=== PATIENT | male | born 1955 | race Caucasian/White ===

== ENCOUNTER → 2021-02-28 09:28 | Outpatient (BNVA) | payer MEDICARE, SELFPAY | PROVIDERS: PCP Family Medicine; Referring Provider Family Medicine; Visit Provider Nurse Practitioner Family | DX: I25.10 Atherosclerotic heart disease of native coronary artery without angina pectoris (principal); I25.2 Old myocardial infarction; I10 Essential (primary) hypertension; E78.5 Hyperlipidemia, unspecified; I45.10 Unspecified right bundle-branch block; Z95.5 Presence of coronary angioplasty implant and graft | CPT/HCPCS: 93005; 99212 ==

== ENCOUNTER 2021-03-11 09:11 | Outpatient (REF) | payer MEDICARE, OTHER, SELFPAY ==
[2021-03-11 10:27] LABS: Alanine Aminotransferase 27 U/L (0-40); Albumin Level 4.1 g/dL (3.5-5.0); Alkaline Phosphatase 115 U/L (39-117); Anion Gap 11 (12-20); Aspartate Amino Transferase 23 U/L (5-37); Bilirubin Total 0.8 mg/dL (0.0-1.0); Blood Urea Nitrogen 17 mg/dL (9-16); Calcium 9.6 mg/dL (8.4-10.2); Carbon Dioxide 29 mmol/L (22-29); Chloride 102 mmol/L (96-108); Cholesterol 147 mg/dL; Estimated Glomerular Filt Rate 43; Glucose Fasting 237 mg/dL (60-99); HDL Cholesterol 59 mg/dL; LDL Cholesterol Calculated 66 mg/dl; Potassium 4.5 mmol/L (3.3-5.1); Sodium 137 mmol/L (135-145); Total Protein 7.5 g/dL (6.5-8.0); Triglycerides 111 mg/dL
== END 2021-03-11 09:12 | disposition home or self-care (01) ==
LOC: HO.LAB 09:11
PROVIDERS: PCP Family Medicine; Visit Provider Nurse Practitioner Family
DX: E78.5 Hyperlipidemia, unspecified (principal)
CPT/HCPCS: 36415; 80053; 80061

== ENCOUNTER → 2021-05-02 08:59 | Outpatient (REF) | payer MEDICARE, OTHER, SELFPAY ==
--- NOTE | 2021-05-02 09:03 | CA_ITS ---
Transthoracic Echocardiogram Patient (Last, First, Middle): Ventura Epstein, Gender: Male Date of : 1955 Age: 65 Procedure Date: 05/02/2021 Procedure Type: Transthoracic Echocardiogram Location: OP Height: 162.56 cm Weight: 68.04 kg BSA: 1.73 m2 Heart Rate: bpm BP: 120 / 63 mmHg Tool Builder: ASHLEY Holland MD: Viviana Gurrola SUPERVISOR [employer] Symptoms: I45.10 - Unspecified right bundle-branch block Study Quality: Fair Conclusions: - Normal left ventricular size, thickness, systolic function, and wall motion. The visually estimated ejection fraction is between 55-60%. - Normal right ventricular cavity size and systolic function. Findings Left Ventricle Normal left ventricular size, thickness, systolic function, and wall motion. The visually estimated ejection fraction is between 55-60%. Diastolic function is indeterminate on the basis of available data. Right Ventricle Normal right ventricular cavity size and systolic function. Atria The left atrium is normal in size. Aortic Valve Normal aortic valve structure and function. There is no aortic valve stenosis. There is no aortic valve regurgitation. Mitral Valve The mitral valve appears normal. There is no mitral valve regurgitation. There is no mitral valve stenosis. Pulmonic Valve Normal pulmonic valve structure and function. There is trace pulmonic valve regurgitation. Tricuspid Valve Normal tricuspid valve structure. There is trace tricuspid valve regurgitation. Normal right atrial pressure. There is no evidence of pulmonary hypertension. Great Vessels All visible segments of the aorta are normal in size. The pulmonary artery was not well visualized. Venous The inferior vena cava is normal in size and collapses greater than 50% with inspiration. Pericardium/Pleural There is no evidence of pericardial effusion. Prior Study Comparison No significant change compared to prior study dated: 11/11/2017. Measurements 2D Linear Measurements IVSd: 0.98 0.6-0.9/0.6-1.0 cm LVIDd: 4.63 3.9-5.3/4.2-5.9 cm LVIDd Index: 2.68 2.4-3.2/2.2-3.1 cm/m2 LVIDs: 2.95 2.0-3.6 cm LVPWd: 0.93 0.7-1.1 cm Ao Root: 2.90 2.1-3.5 cm LA Diam: 3.50 2.7-3.8/3.0-4.0 cm LAIDs Index: 2.02 1.5-2.3 cm/m2 LV Mass: 187.29 67-162/88-224 g LV Mass Index: 108.26 43-95/49-115 g/m2 LVOT Diam: 2.10 3.0+(-)1.3 cm 2D Systolic Function EF 4C: 61.70 >55% EF 2C: 60.20 >55% Mitral Valve MV Pk E: 0.89 MV PK A: 0.91 MV Decel Time: 337.00 E/A: 1.00 E'Lateral: 9.79 E'Medial: 7.18 E/E' Med: 12.40 E/E' Lat: 9.10 PHT: 99.00 MVA PHT: 2.22 Decel [place]: 2.63 Aortic Valve AoV Pk Rigoberto: 1.48 AoV Mn Rigoberto: 0.98 AoV VTI: 0.33 AoV Pk Grad: 9.00 Aov Mn Grad: 4.00 ABHAY Cont.VTI: 2.47 LVOT LVOT Pk Rigoberto: 1.03 LVOT Mn Rigoberto: 0.67 LVOT VTI: 0.24 LVOT Pk Grad: 4.00 LVOT Mn Grad: 2.00 LVOT Diam: 2.10 LVOT Area: 3.46 Diastolic Function MV Pk E: 0.89 MV Pk A: 0.91 E/A: 1.00 E'Medial: 7.18 E/E' Med: 12.40 E' Laterial: 9.79 E/E' Lat: 9.10 Tricuspid Valve TR Pk Rigoberto: 1.37 TR Pk Grad: 8.00 RA Press: 3.00 RVSP: 11.00 Great Vessels Aorta Ao Root-2D: 2.90 2.0-3.7 cm Ao Asc: 2.90 2.1-3.4 cm Ao Arch: 2.90 Updated in Other Vendor System with Status of Final Yaron Sullivan MD electronically signed on 05/05/2021 9:36:27 AM with status of Final
== END ==
LOC: HO.CARD 08:59
PROVIDERS: Visit Provider Nurse Practitioner Family
DX: I25.2 Old myocardial infarction (principal); I45.10 Unspecified right bundle-branch block; I25.10 Atherosclerotic heart disease of native coronary artery without angina pectoris; I10 Essential (primary) hypertension; E78.5 Hyperlipidemia, unspecified; Z95.5 Presence of coronary angioplasty implant and graft
CPT/HCPCS: 93306

== ENCOUNTER → 2021-05-21 08:47 | Outpatient (BNVA) | payer MEDICARE, OTHER, SELFPAY | PROVIDERS: PCP Family Medicine; Referring Provider Family Medicine; Visit Provider Surgery | DX: Z01.818 Encounter for other preprocedural examination (principal); Z12.11 Encounter for screening for malignant neoplasm of colon | CPT/HCPCS: 99202; 99212 ==

== ENCOUNTER 2021-06-20 06:12 | Day surgery (SDC) | payer MEDICARE, OTHER, SELFPAY ==
[2021-06-16 11:18] VITALS: BMI 26.7
[2021-06-20 06:31] VITALS: BP 125/75; PULSE 80; RESP 15; TEMP 36.7; O2SAT 97
[2021-06-20 06:51] LABS: Glucose, Whole Blood 178 mg/dL (60-115)
--- NOTE | 2021-06-20 07:05 | HO.ANESPROP2 ---
[facility] Active Problems Active Problems: All Active Problems (Updated 06/20/21 @ 06:22 by Linda Nash, PIERRE) RBBB (Acute) Colon cancer screening (Acute) HLD (hyperlipidemia) (Acute) HTN (hypertension) (Acute) Old anterior myocardial infarction (Acute) Stented coronary artery (Acute) CAD (coronary artery disease) (Acute) Past Medical History Medical History (Updated 06/20/21 @ 06:22 by Linda Nash, RN) Arthritis CAD (coronary artery disease) Chronic back pain Colon cancer screening COVID-19 vaccine series completed GERD (gastroesophageal reflux disease) History of anemia HIV (human immunodeficiency virus infection) HLD (hyperlipidemia) HTN (hypertension) Hx of major depression Old anterior myocardial infarction Functional capacity: independent ambulation Family History Family History Father No problems noted. Mother No problems noted. Family history of problems with anesthesia: No Surgical History Surgical History History of bilateral cataract extraction History of esophagogastroduodenoscopy (EGD) History of neck surgery History of right knee surgery Hx of colonoscopy Stented coronary artery History of Problems with Anesthesia: No Social History Social History Are you a primary transitional care nurse to a significant other at home: No Do you presently have visiting nurse or other home services: No Have you been hit, kicked, punched, or otherwise hurt by someone within the past year? If so, by whom?: No Are you DNR?: No Advance Directives: No Advance Directives Information Provided: No Advance Directives on File: No Recently lost weight without trying: No Eating poorly because of decreased appetite: No Nutrition Risks: No Nutritional Risk Meds Allergies Allergy/AdvReac Type Severity Reaction Status Date / Time amoxicillin [Amoxicillin] Allergy Mild RASH Verified 06/20/21 06:22 Penicillins Allergy Mild RASH Verified 06/20/21 06:22 sulfamethoxazole Allergy Unknown UNKNOWN Verified 06/20/21 06:22 [From BACTRIM] trimethoprim [From BACTRIM] Allergy Unknown UNKNOWN Verified 06/20/21 06:22 atorvastatin [Lipitor] AdvReac Unknown unk Verified 06/20/21 06:22 Home Medications Medication Instructions Recorded Confirmed Last Taken Type aspirin 81 mg tablet,delayed 81 mg PO DAILY 02/28/21 06/16/21 Unknown History release (Adult Aspirin Regimen) baclofen 20 mg tablet 1 tab PO TID PRN 06/20/21 06/20/21 06/20/21 05:30 History bictegravir 50 mg-emtricitabine 1 tab PO BEDTIME 06/20/21 06/20/21 Unknown History 200 mg-tenofovir alafenam 25 mg tablet (Biktarvy) diazepam 5 mg tablet 1 tab PO BEDTIME PRN 06/20/21 06/20/21 Unknown History glipizide 10 mg tablet 2 tab PO BID 06/20/21 06/20/21 06/20/21 05:30 History insulin glargine 100 unit/mL (3 24 unit SUBCUT DAILY 06/20/21 06/20/21 Unknown History mL) subcutaneous pen (Lantus Solostar U-100 Insulin) metoprolol succinate 25 mg 1 tab PO QAM 06/20/21 06/20/21 06/20/21 05:30 History tablet,extended release 24 hr morphine 30 mg tablet,extended 1 tab PO TID 06/20/21 06/20/21 Unknown History release omega-3 fatty acids-fish oil 340 2 cap PO QAM 06/20/21 06/20/21 06/20/21 05:30 History mg-1,000 mg capsule (Fish Oil) omeprazole 40 mg capsule,delayed 1 cap PO QAM 06/20/21 06/20/21 06/20/21 05:30 History release oxycodone-acetaminophen 5 mg-325 1 tab PO BID PRN 06/20/21 06/20/21 Unknown History mg tablet pioglitazone 45 mg tablet 1 tab PO QAM 06/20/21 06/20/21 06/20/21 05:30 History Exam Exam Date and Time: June 20, 2021 0705 Height,Weight and Vital Signs: Height 5 ft 4 in Weight 70.76 kg Last Vital Signs Temp 98.0 F 06/20/21 06:31 Pulse 80 06/20/21 06:31 Resp 15 06/20/21 06:31 BP 125/75 06/20/21 06:31 Pulse Ox 97 06/20/21 06:31 Pertinent Lab Results Pertinent Lab Results: Laboratory Tests 06/20/21 06:34 POC Glucose 178 H Airway Mallampati Class: II TM Dist: >3cm Neck ROM: Full Heart: RRR Lungs: CTA Assessment and Plan Final Anesthetic Review Family History of Problems with Anesthesia: No History of Problems with Anesthesia: No
[2021-06-20] MEDS: Lactated Ringers 1,000 ML 50 ML IVCONT (07:10)
--- NOTE | 2021-06-20 07:29 | MHC.SHP ---
Pre-Procedural Eval Section A Date of Service: 06/20/21 Section B Chief Complaint: Screening Allergies: Allergies Allergy/AdvReac Type Severity Reaction Status Date / Time amoxicillin [Amoxicillin] Allergy Mild RASH Verified 06/20/21 06:22 Penicillins Allergy Mild RASH Verified 06/20/21 06:22 sulfamethoxazole Allergy Unknown UNKNOWN Verified 06/20/21 06:22 [From BACTRIM] trimethoprim [From BACTRIM] Allergy Unknown UNKNOWN Verified 06/20/21 06:22 atorvastatin [Lipitor] AdvReac Unknown unk Verified 06/20/21 06:22 Plan I have reviewed the history and physical and performed a pertinent physical examination on my patient. No changes have occurred unless specified.
--- NOTE | 2021-06-20 08:04 | W.PM.OPN ---
Operative Note Operative Note Date of Service: 06/20/21 Narrative: Preop diagnosis: colon cancer screening Postop diagnosis: Normal colonoscopy findings Procedure: Colonoscopy for screening Surgeon: Ja Rios MD The patient is a 65-year-old male referred to me for screening colonoscopy. He understood the technique of the procedure. He was aware of the risks, benefits, and alternatives. He was brought to the operating room and placed in left lateral decubitus position under monitored anesthesia care. A full digital rectal exam was done and there were no palpable anal lesions. The tip of the Olympus colonoscope was gently introduced through the anal orifice and advanced with insufflation all the cecum. The cecum was intubated. The cecum was identified by visualization of the ileocecal valve as well as the appendiceal orifice. Photographic documentation of this was done. cecal mucosa was unremarkable. The scope was gradually withdrawn with careful examination of the entire colonic mucosa being done with scope withdrawal. The patient had adequate bowel prep and it was unlikely that any lesion may have been missed. He did have some small pools of thin watery stools which we had to irrigate and suction out during the procedure. The rectum was reached and there were no lesions seen. The anal canal was unremarkable the scope was then withdrawn completely with desufflation. The patient tolerated procedure well. There were no complications noted. He falls at average risk for colon cancer so his next colonoscopy may be in the next 10 years or when he turns 73.
[2021-06-20 08:06] VITALS: BP 76/47; PULSE 68; RESP 16; TEMP 36.4; O2SAT 96
--- NOTE | 2021-06-20 08:08 | P.BOP_ITS ---
Brief Operative Note Date of Service: 06/20/21 Pre-op diagnosis: Colon cancer screen Post-op diagnosis: same (Normal colonoscopy findings) Procedure: Colonoscopy Surgeon: Ja Rios MD Anesthesia: MAC Was an Tubular Stock Glass Bulb Machine Former used for this Procedure?: No Estimated blood loss (mL): 0 Pathology: none sent Condition: stable Disposition: PACU
[2021-06-20 08:21] VITALS: BP 97/58; PULSE 68; RESP 16; O2SAT 95
[2021-06-20 08:35] VITALS: BP 127/76; PULSE 60; RESP 18; O2SAT 98
[2021-06-20 08:50] VITALS: BP 138/72; PULSE 55; RESP 18; O2SAT 98
[2021-06-20 09:14] VITALS: BP 132/77; PULSE 57; RESP 18; TEMP 36.4; O2SAT 99
== END 2021-06-20 10:00 | disposition home or self-care (01) ==
PROVIDERS: PCP Family Medicine; Visit Provider Surgery
PROC: 0DJD8ZZ Inspection of Lower Intestinal Tract, Via Natural or Artificial Opening Endoscopic (ICD-10-PCS; CPT 45378; principal; 2021-06-20 07:30)
DX: Z12.11 Encounter for screening for malignant neoplasm of colon (principal); E78.5 Hyperlipidemia, unspecified; I25.10 Atherosclerotic heart disease of native coronary artery without angina pectoris; Z98.61 Coronary angioplasty status; I10 Essential (primary) hypertension; I25.2 Old myocardial infarction; Z79.82 Long term (current) use of aspirin; Z79.899 Other long term (current) drug therapy; Z88.0 Allergy status to penicillin; Z88.2 Allergy status to sulfonamides; Z88.8 Allergy status to other drugs, medicaments and biological substances
CPT/HCPCS: G0121; 82947

== ENCOUNTER → 2021-07-02 10:59 | Outpatient (BNVA) | payer MEDICARE, OTHER, SELFPAY | PROVIDERS: PCP Family Medicine; Visit Provider Surgery | CPT/HCPCS: Q3014 ==

== ENCOUNTER 2021-10-02 17:07 | Emergency (ER) | payer MEDICARE, OTHER, SELFPAY ==
--- NOTE | ~2021-10-02 | CT_ITS ---
EXAMINATION: CT HEAD WITHOUT CONTRAST CLINICAL INFORMATION: Altered mental status COMPARISON: 12.04.2019 TECHNIQUE: Contiguous axial imaging was performed from the skull base to vertex without intravenous administration of contrast. This CT examination was performed using dose optimization techniques as appropriate, variously including the following: *Automated exposure control *Adjustment of mA and/or kV according to patient size (this includes techniques or standardized protocols for targeted exams where dose is matched to indication/reason for exam; i.e. extremities or head) *Use of iterative reconstruction technique DLP: 774 mGy-cm FINDINGS: There is no evidence of acute intracranial hemorrhage or territorial infarction. No abnormal mass effect or midline shift is seen. Sigala to white matter differentiation is well preserved. No extra-axial fluid collections are identified. The ventricles are normal in size. There is no abnormal attenuation within the brain parenchyma. The osseous structures and soft tissues are normal. The mastoid air cells and visualized portions of the paranasal sinuses are well aerated. CT/CT head/brain wo con IMPRESSION: No acute intracranial pathology.
[2021-10-02 17:19] VITALS: BP 160/80; PULSE 80; O2SAT 98
[2021-10-02 17:37] VITALS: BP 137/81; PULSE 66; RESP 14; TEMP 36.6; O2SAT 97
[2021-10-02 17:42] LABS: Glucose, Whole Blood 213 mg/dL (60-115)
--- NOTE | 2021-10-02 17:49 | ECG_ITS ---
Test Reason : WEAKNESS Blood Pressure : / mmHG Vent. Rate : 059 BPM Atrial Rate : 059 BPM P-R Int : 156 ms QRS Dur : 146 ms QT Int : 452 ms P-R-T Axes : 047 -45 -01 degrees QTc Int : 447 ms Sinus bradycardia Right bundle branch block Left anterior fascicular block Bifascicular block Minimal voltage criteria for LVH, may be normal variant ( R in aVL ) Abnormal ECG When compared with ECG of 04-DEC-2019 08:32, Vent. rate has decreased BY 33 BPM (RBBB and left anterior fascicular block) is now Present Referred By: Generic ED Physician Electronically Signed By:NEAL MARCUM MD
[2021-10-02 18:44] VITALS: BP 132/67; PULSE 63; RESP 18; TEMP 36.6; O2SAT 95; BMI 25.7
[2021-10-02 19:20] VITALS: BP 160/85; PULSE 71; RESP 14; TEMP 36.5; O2SAT 97
[2021-10-02 19:27] LABS: Hemoglobin 14.4 g/dl (14.0-18.0); PLT CLUMP 1; SCAN SMEAR FLAG 1
[2021-10-02 19:29] LABS: Basophils Percent Auto 0.4 % (0-2); Eosinophils Absolute Auto 0.1 X10*3/uL (0.0-0.4); Eosinophils Percent Auto 0.6 % (0-4); Imm Gran Abs Auto 0.04 X10*3/uL (0.00-0.03); Imm Gran Pct Auto 0.5 % (0.0-0.4); Lymphocytes Percent Auto 23.8 % (20-40); MANUAL DIFF FLAG SCAN; Mean Corpuscular HGB Conc 32.7 g/dl (31.0-36.0); Mean Corpuscular Hemoglobin 30.1 pg (27.0-33.0); Mean Corpuscular Volume 92.1 fL (80.0-98.0); Mean Platelet Volume 11.2 fL (9.4-12.4); Monocytes Absolute Auto 0.6 X10*3/uL (0.1-1.2); Monocytes Percent Auto 7.3 % (2-11); Neutrophils Absolute Auto 5.5 x10*3/uL (2.0-8.3); Neutrophils Percent Auto 67.4 % (45-73); Red Blood Count 4.78 X10*6/uL (4.60-5.80); Red Cell Distribution Width 13.6 % (11.0-16.0)
[2021-10-02 19:43] LABS: Alanine Aminotransferase 27 U/L (0-40); Albumin Level 4.2 g/dL (3.5-5.0); Alkaline Phosphatase 97 U/L (39-117); Anion Gap 13 (12-20); Aspartate Amino Transferase 27 U/L (5-37); Bilirubin Total 0.5 mg/dL (0.0-1.0); Blood Urea Nitrogen 20 mg/dL (9-16); Calcium 9.9 mg/dL (8.4-10.2); Carbon Dioxide 31 mmol/L (22-29); Chloride 103 mmol/L (96-108); Creatinine Clr Calc Pharmacy 37.2; Estimated Glomerular Filt Rate 43; Glucose Random 214 mg/dL (60-115); Potassium 4.6 mmol/L (3.3-5.1); Sodium 142 mmol/L (135-145); Total Protein 7.7 g/dL (6.5-8.0)
[2021-10-02 19:48] LABS: Platelet Count 124 X10*3/uL (160-400); Troponin-I High Sensitivity < 3.5 ng/L (<3.5-35.0); White Blood Count 8.3 X10*3/uL (4.8-10.8)
[2021-10-02 19:49] LABS: SLIDE REVIEW VERIFIED
--- NOTE | 2021-10-02 23:47 | ED.GENADULT ---
HPI - General Adult General Chief complaint: General Medical Stated complaint: DIZZY,LETHARGY PER EMS Time Seen by Provider: 10/02/21 23:47 Source: patient Mode of arrival: EMS Limitations: altered mental status History of Present Illness HPI narrative: 65-year-old male who is brought emergency department by ambulance for evaluation of dizziness. The patient told me he was not certain why he called an ambulance. He has no complaints at the time of my interview. He denied headache, dizziness, nausea, vomiting, chest pain, shortness of breath, abdominal pain, frequency, urgency or dysuria. The patient tells me that he does not remember calling an ambulance knees is not remember why came to the hospital. He was able to tell me his name. He knows that he is in a hospital. He is able to identify objects such as chair, pen and television. He did tell me that he lives at home with his son. In reviewing the nurse triage note, the patient did complain of a headache and back pain to the nurse. Related Data Home Medications Medication Instructions Recorded Confirmed aspirin 81 mg tablet,delayed 81 mg PO DAILY 02/28/21 07/02/21 release (Adult Aspirin Regimen) baclofen 20 mg tablet 1 tab PO TID PRN 06/20/21 07/02/21 bictegravir 50 mg-emtricitabine 1 tab PO BEDTIME 06/20/21 07/02/21 200 mg-tenofovir alafenam 25 mg tablet (Biktarvy) diazepam 5 mg tablet 1 tab PO BEDTIME PRN 06/20/21 07/02/21 glipizide 10 mg tablet 2 tab PO BID 06/20/21 07/02/21 insulin glargine 100 unit/mL (3 24 unit SUBCUT DAILY 06/20/21 07/02/21 mL) subcutaneous pen (Lantus Solostar U-100 Insulin) metoprolol succinate 25 mg 1 tab PO QAM 06/20/21 07/02/21 tablet,extended release 24 hr morphine 30 mg tablet,extended 1 tab PO TID 06/20/21 07/02/21 release omega-3 fatty acids-fish oil 340 2 cap PO QAM 06/20/21 07/02/21 mg-1,000 mg capsule (Fish Oil) omeprazole 40 mg capsule,delayed 1 cap PO QAM 06/20/21 07/02/21 release oxycodone-acetaminophen 5 mg-325 1 tab PO BID PRN 06/20/21 07/02/21 mg tablet pioglitazone 45 mg tablet 1 tab PO QAM 06/20/21 07/02/21 Previous Rx's Medication Instructions Recorded rosuvastatin 10 mg tablet 10 mg PO DAILY 90 Days #90 tab 02/28/21 ezetimibe 10 mg tablet (Zetia) 10 mg PO DAILY 90 Days #90 tab 04/22/21 sodium,potassium,mag sulfates 17.5 See Rx Instructions PO .COMPLEX 05/21/21 gram-3.13 gram-1.6 gram oral soln #354 ml (Suprep Bowel Prep Kit) Allergies Allergy/AdvReac Type Severity Reaction Status Date / Time amoxicillin [Amoxicillin] Allergy Mild RASH Verified 10/02/21 18:44 Penicillins Allergy Mild RASH Verified 10/02/21 18:44 sulfamethoxazole Allergy Unknown UNKNOWN Verified 10/02/21 18:44 [From BACTRIM] trimethoprim [From BACTRIM] Allergy Unknown UNKNOWN Verified 10/02/21 18:44 atorvastatin [Lipitor] AdvReac Unknown unk Verified 10/02/21 18:44 Review of Systems Review of Systems: Yes all other systems are reviewed and are negative [facility] Past Medical History [facility] Narrative: Social history: The patient denies tobacco, alcohol and drug use. Medical History Arthritis CAD (coronary artery disease) Chronic back pain Colon cancer screening COVID-19 vaccine series completed GERD (gastroesophageal reflux disease) History of anemia HIV (human immunodeficiency virus infection) HLD (hyperlipidemia) HTN (hypertension) Hx of major depression Old anterior myocardial infarction Surgical History History of bilateral cataract extraction History of esophagogastroduodenoscopy (EGD) History of neck surgery History of right knee surgery Hx of colonoscopy Stented coronary artery Family History Family History Father No problems noted. Mother No problems noted. Social History Social History Are you a primary healthcare financial analyst to a significant other at home: No Do you presently have visiting nurse or other home services: No Advance Directives: No Advance Directives Information Provided: No Physical Exam Vital Signs: Vital Signs: Last Vital Signs Temp 97.5 F 10/03/21 00:02 Pulse 79 10/03/21 00:02 Resp 14 10/03/21 00:02 BP 157/77 H 10/03/21 00:02 Pulse Ox 100 10/03/21 00:02 BMI result Body Mass Index 25.7 Const: Other: Awake, alert, male patient, sitting upright in the stretcher, is oriented to person place, can not identify objects cannot tell me why he is here in the emergency department, he does not appear to be in distress. HENMT: Head: Yes normal to inspection, Yes normocephalic and Yes atraumatic Ears: external ears normal General nose exam: Normal external nose present Face and sinus: Yes normal facial exam Mouth: Normal oral and palatal mucosa present Throat: Yes posterior oropharynx normal Eyes: General: appearance normal, both eyes and all related structures Pupils: Equal, round and reactive pupils present Neck: Neck: Yes normal visual inspection, Yes no lymphadenopathy, Yes trachea midline and Yes supple Chest: Chest palpation & inspection: normal inspection of the chest and normal palpation of entire chest wall Resp: Effort & Inspection: normal respiratory effort and able to speak in complete sentences Auscultation: clear to auscultation bilaterally Cardio: Rate: regular rate Rhythm: regular rhythm Heart sounds: S1 normal heart sound present, S2 normal heart sound present and no murmurs GI: Inspection: Yes normal to inspection Palpation (GI): Soft to palpation, nontender and no guarding Auscultation: normal bowel sounds : General: Yes no CVA tenderness Back/Spine/Pelvis: Back: no CVA tenderness Skin: General skin exam: no rashes or lesions noted Neuro: Cranial nerves: Yes CN's II-XII intact bilaterally and Yes Equal, round and reactive pupils present Cognition (Neuro): normal cognition Motor exam (neuro): 5/5 motor strength present throughout Extrem: General: Yes normal to inspection Psych: Appearance: grossly normal Speech and movement: Normal speech and movement present Affect: normal affect Attitude: cooperative Thought process: Normal thought process present Thought content: Normal thought content present Course Course Course Narrative: 65-year-old male who was brought to the emergency department by ambulance with reported dizziness however the patient tells me that he cannot remember calling an ambulance and is not certain why he is here in the hospital. He is oriented to person and place, he can identify objects without any difficulty, he does not appear to be in distress. Initial vital signs were normal, repeat vital signs at 7:20 p.m. revealed an elevated blood pressure of 160/85. His examination was unremarkable. 0007: Laboratory evaluation: Low platelet count of a [id number] which is chronic. Elevated bicarb of 31. Elevated BUN creatinine of 21.61 which is chronic. Troponin was below detectable limits. I added a urinalysis, urine tox screen and blood ethanol level on the patient. CT scan of the patient's head will be obtained to rule out stroke, bleed, mass effect. 0258: The patient's CT scan of the brain was unremarkable. Alcohol level was below detectable limits. A urine sample was was not obtained on the patient. The patient's fiancee is here in the emergency department she states that the patient came to the emergency department for back pain which she denies at this time. The patient was able ambulate here in the emergency department therefore who be discharged home. Medical Decision Making Lab Data Result diagrams: 10/02/21 19:19 10/02/21 19:19 Labs: Lab Results 10/02/21 10/02/21 10/02/21 Range/Units 17:37 19:19 19:19 WBC 8.3 (4.8-10.8) X10*3/uL RBC 4.78 (4.60-5.80) X10*6/uL Hgb 14.4 (14.0-18.0) g/dl Hct 44.0 (42.0-52.0) % MCV 92.1 (80.0-98.0) fL MCH 30.1 (27.0-33.0) pg MCHC 32.7 (31.0-36.0) g/dl RDW 13.6 (11.0-16.0) % Plt Count 124 L (160-400) X10*3/uL MPV 11.2 (9.4-12.4) fL Immature Gran % (Auto) 0.5 H (0.0-0.4) % Neut % (Auto) 67.4 (45-73) % Lymph % (Auto) 23.8 (20-40) % Orange % (Auto) 7.3 (2-11) % Eos % (Auto) 0.6 (0-4) % Baso % (Auto) 0.4 (0-2) % Lymph # (Auto) 2.0 (1.2-4.9) X10*3/uL Orange # (Auto) 0.6 (0.1-1.2) X10*3/uL Eos # (Auto) 0.1 (0.0-0.4) X10*3/uL Baso # (Auto) 0.0 (0.0-0.2) X10*3/uL Abs Immat Gran (auto) 0.04 H (0.00-0.03) X10*3/uL Absolute Neuts (auto) 5.5 (2.0-8.3) x10*3/uL Absolute Nucleated RBC 0.000 (0.0-0.012) X10*3/uL Nucleated RBC % (auto) 0.0 (0.0-0.2) /100WBC Smear Tech's Comments VERIFIED Sodium 142 (135-145) mmol/L Potassium 4.6 (3.3-5.1) mmol/L Chloride 103 (96-108) mmol/L Carbon Dioxide 31 H (22-29) mmol/L Anion Gap 13 (12-20) BUN 20 H (9-16) mg/dL Creatinine 1.61 H (0.5-1.4) mg/dL Estim Creat Clear Calc 37.2 Estimated GFR 43 POC Glucose 213 H (60-115) mg/dL Random Glucose 214 H (60-115) mg/dL Calcium 9.9 (8.4-10.2) mg/dL Total Bilirubin 0.5 (0.0-1.0) mg/dL AST 27 (5-37) U/L ALT 27 (0-40) U/L Alkaline Phosphatase 97 (39-117) U/L Troponin I High Sens (<3.5-35.0) ng/L Total Protein 7.7 (6.5-8.0) g/dL Albumin 4.2 (3.5-5.0) g/dL Urine Color Urine Appearance Urine pH (5.0-8.0) Ur Specific [place] (1.005-1.025) Urine Protein (NEG-TRACE) MG/DL Urine Glucose (UA) (NEG) MG/DL Urine Ketones (NEG) MG/DL Urine Blood (NEG) Urine Nitrite (NEG) Ur Leukocyte Esterase (NEG) Urine RBC (0) /HPF Urine WBC (0-4) /HPF Ur Squamous Epith Cells /LPF Urine Bacteria /LPF Urine Opiates Screen (Not Detect) Urine Fentanyl Screen (Not Detect) Ur Barbiturates Screen (Not Detect) Ur Phencyclidine Scrn (Not Detect) Ur Amphetamines Screen (Not Detect) U Benzodiazepines Scrn (Not Detect) Urine Cocaine Screen (Not Detect) U Marijuana (THC) Screen (Not Detect) Ethyl Alcohol mg/dL 10/02/21 10/02/21 10/03/21 Range/Units 19:19 19:24 01:50 WBC (4.8-10.8) X10*3/uL RBC (4.60-5.80) X10*6/uL Hgb (14.0-18.0) g/dl Hct (42.0-52.0) % MCV (80.0-98.0) fL MCH (27.0-33.0) pg MCHC (31.0-36.0) g/dl RDW (11.0-16.0) % Plt Count (160-400) X10*3/uL MPV (9.4-12.4) fL Immature Gran % (Auto) (0.0-0.4) % Neut % (Auto) (45-73) % Lymph % (Auto) (20-40) % Orange % (Auto) (2-11) % Eos % (Auto) (0-4) % Baso % (Auto) (0-2) % Lymph # (Auto) (1.2-4.9) X10*3/uL Orange # (Auto) (0.1-1.2) X10*3/uL Eos # (Auto) (0.0-0.4) X10*3/uL Baso # (Auto) (0.0-0.2) X10*3/uL Abs Immat Gran (auto) (0.00-0.03) X10*3/uL Absolute Neuts (auto) (2.0-8.3) x10*3/uL Absolute Nucleated RBC (0.0-0.012) X10*3/uL Nucleated RBC % (auto) (0.0-0.2) /100WBC Smear Tech's Comments Sodium (135-145) mmol/L Potassium (3.3-5.1) mmol/L Chloride (96-108) mmol/L Carbon Dioxide (22-29) mmol/L Anion Gap (12-20) BUN (9-16) mg/dL Creatinine (0.5-1.4) mg/dL Estim Creat Clear Calc Estimated GFR POC Glucose (60-115) mg/dL Random Glucose (60-115) mg/dL Calcium (8.4-10.2) mg/dL Total Bilirubin (0.0-1.0) mg/dL AST (5-37) U/L ALT (0-40) U/L Alkaline Phosphatase (39-117) U/L Troponin I High Sens < 3.5 (<3.5-35.0) ng/L Total Protein (6.5-8.0) g/dL Albumin (3.5-5.0) g/dL Urine Color YELLOW Urine Appearance CLEAR Urine pH 6.5 (5.0-8.0) Ur Specific [place] 1.020 (1.005-1.025) Urine Protein 1+ H (NEG-TRACE) MG/DL Urine Glucose (UA) >=1000 H (NEG) MG/DL Urine Ketones 15 (NEG) MG/DL Urine Blood NEG (NEG) Urine Nitrite NEG (NEG) Ur Leukocyte Esterase NEG (NEG) Urine RBC 0-2 (0) /HPF Urine WBC 0-2 (0-4) /HPF Ur Squamous Epith Cells TRACE /LPF Urine Bacteria NONE /LPF Urine Opiates Screen (Not Detect) Urine Fentanyl Screen (Not Detect) Ur Barbiturates Screen (Not Detect) Ur Phencyclidine Scrn (Not Detect) Ur Amphetamines Screen (Not Detect) U Benzodiazepines Scrn (Not Detect) Urine Cocaine Screen (Not Detect) U Marijuana (THC) Screen (Not Detect) Ethyl Alcohol < 10 mg/dL 10/03/21 Range/Units 01:50 WBC (4.8-10.8) X10*3/uL RBC (4.60-5.80) X10*6/uL Hgb (14.0-18.0) g/dl Hct (42.0-52.0) % MCV (80.0-98.0) fL MCH (27.0-33.0) pg MCHC (31.0-36.0) g/dl RDW (11.0-16.0) % Plt Count (160-400) X10*3/uL MPV (9.4-12.4) fL Immature Gran % (Auto) (0.0-0.4) % Neut % (Auto) (45-73) % Lymph % (Auto) (20-40) % Orange % (Auto) (2-11) % Eos % (Auto) (0-4) % Baso % (Auto) (0-2) % Lymph # (Auto) (1.2-4.9) X10*3/uL Orange # (Auto) (0.1-1.2) X10*3/uL Eos # (Auto) (0.0-0.4) X10*3/uL Baso # (Auto) (0.0-0.2) X10*3/uL Abs Immat Gran (auto) (0.00-0.03) X10*3/uL Absolute Neuts (auto) (2.0-8.3) x10*3/uL Absolute Nucleated RBC (0.0-0.012) X10*3/uL Nucleated RBC % (auto) (0.0-0.2) /100WBC Smear Tech's Comments Sodium (135-145) mmol/L Potassium (3.3-5.1) mmol/L Chloride (96-108) mmol/L Carbon Dioxide (22-29) mmol/L Anion Gap (12-20) BUN (9-16) mg/dL Creatinine (0.5-1.4) mg/dL Estim Creat Clear Calc Estimated GFR POC Glucose (60-115) mg/dL Random Glucose (60-115) mg/dL Calcium (8.4-10.2) mg/dL Total Bilirubin (0.0-1.0) mg/dL AST (5-37) U/L ALT (0-40) U/L Alkaline Phosphatase (39-117) U/L Troponin I High Sens (<3.5-35.0) ng/L Total Protein (6.5-8.0) g/dL Albumin (3.5-5.0) g/dL Urine Color Urine Appearance Urine pH (5.0-8.0) Ur Specific [place] (1.005-1.025) Urine Protein (NEG-TRACE) MG/DL Urine Glucose (UA) (NEG) MG/DL Urine Ketones (NEG) MG/DL Urine Blood (NEG) Urine Nitrite (NEG) Ur Leukocyte Esterase (NEG) Urine RBC (0) /HPF Urine WBC (0-4) /HPF Ur Squamous Epith Cells /LPF Urine Bacteria /LPF Urine Opiates Screen Not Detected (Not Detect) Urine Fentanyl Screen Not Detected (Not Detect) Ur Barbiturates Screen Not Detected (Not Detect) Ur Phencyclidine Scrn Not Detected (Not Detect) Ur Amphetamines Screen Not Detected (Not Detect) U Benzodiazepines Scrn POSITIVE H (Not Detect) Urine Cocaine Screen Not Detected (Not Detect) U Marijuana (THC) Screen Not Detected (Not Detect) Ethyl Alcohol mg/dL Discharge Plan Discharge Clinical Impression: Acute alteration in mental status Back pain Qualifiers: Back pain location: low back pain Chronicity: acute Back pain laterality: unspecified Sciatica presence: without sciatica Qualified Code(s): M54.50 - Low back pain, unspecified Patient Disposition: Home, Self-Care Instructions: Back Pain (ED) Additional Instructions: Take ibuprofen 200 mg pills, 3 pills every 6 hours as needed for pain. Take Tylenol (acetaminophen) 500 mg pills, 2 pills every 4 to 6 hours as needed for pain. Follow-up with your doctor in 2 days. Please return to the emergency department if your symptoms get worse or if you develop any symptoms that are concerning to you. Prescriptions: No Action rosuvastatin 10 mg tablet 10 mg PO DAILY 90 Days Qty: 90 RF: 3 ezetimibe [Zetia] 10 mg tablet 10 mg PO DAILY 90 Days Qty: 90 RF: 1 glipizide 10 mg tablet 2 tab PO BID RF: 0 pioglitazone 45 mg tablet 1 tab PO QAM RF: 0 morphine 30 mg tablet extended release 1 tab PO TID RF: 0 omeprazole 40 mg capsule,delayed release(DR/EC) 1 cap PO QAM RF: 0 baclofen 20 mg tablet 1 tab PO TID PRN (Reason: muscle spasm) RF: 0 oxycodone-acetaminophen 5-325 mg tablet 1 tab PO BID PRN (Reason: pain) RF: 0 metoprolol succinate 25 mg tablet extended release 24 hr 1 tab PO QAM RF: 0 diazepam 5 mg tablet 1 tab PO BEDTIME PRN (Reason: muscle spasm) RF: 0 Fish Oil 340-1,000 mg capsule 2 cap PO QAM RF: 0 Lantus Solostar U-100 Insulin 100 unit/mL (3 mL) insulin pen 24 unit subcut DAILY RF: 0 Biktarvy 50-200-25 mg tablet 1 tab PO BEDTIME RF: 0 aspirin [Adult Aspirin Regimen] 81 mg tablet,delayed release (DR/EC) 81 mg PO DAILY RF: 0 Suprep Bowel Prep Kit 17.5-3.13-1.6 gram recon soln See Rx Instructions PO .COMPLEX Qty: 354 RF: 0
[2021-10-03 00:02] VITALS: BP 157/77; PULSE 79; RESP 14; TEMP 36.4; O2SAT 100
[2021-10-03 00:21] LABS: Ethanol < 10 mg/dL
[2021-10-03 01:58] LABS: Appearance Urine CLEAR; Color Urine YELLOW; Glucose Urine UA >=1000 MG/DL (NEG); Leukocyte Esterase Urine NEG (NEG); Nitrite Urine NEG (NEG); PH 6.5 (5.0-8.0); UACC Culture Trigger NO; Urine Blood NEG (NEG); Urine Ketones 15 MG/DL (NEG); Urine Protein 1+ MG/DL (NEG-TRACE)
[2021-10-03 02:05] LABS: RBC Urine 0-2 /HPF (0); Squamous Epithelial Cell Urine TRACE /LPF; WBC Urine 0-2 /HPF (0-4)
[2021-10-03 02:17] LABS: Amphetamine Screen Urine Not Detected (Not Detect); Barbiturates, Urine Not Detected (Not Detect); Benzodiazepines Screen Urine POSITIVE (Not Detect); Cannabinoid Screen Urine Not Detected (Not Detect); Cocaine Screen Urine Not Detected (Not Detect); Fentanyl, urine Not Detected (Not Detect); Opiate Screen Urine Not Detected (Not Detect); Phencyclidine Screen Urine Not Detected (Not Detect)
== END 2021-10-03 03:19 | disposition home or self-care (01) ==
PROVIDERS: Emergency Provider Emergency Medicine Emergency Medical Services; PCP Family Medicine
DX: R41.82 Altered mental status, unspecified (principal); M54.50 Low back pain, unspecified
CPT/HCPCS: 36415; 70450; 80053; 80307; 81001; 81003; 82077; 82947; 84484; 85025; 93005; 99284

== ENCOUNTER 2021-10-05 02:31 | Emergency (ER) | payer MEDICARE, OTHER, SELFPAY ==
[2021-10-05] VITALS (10 sets, daily range): BP systolic 126–192; BP diastolic 68–82; PULSE 59–81; RESP 14–18; TEMP 36.6–37; O2SAT 95–100; BMI 28.0
--- NOTE | ~2021-10-05 | XR_ITS ---
EXAMINATION: THORACIC AND LUMBAR SPINE CLINICAL INFORMATION: Low back pain. COMPARISON: Lumbar spine T10-T11 2010 TECHNIQUE: Thoracic spine 3 views. Lumbar spine 2 views. FINDINGS: Lumbar spine: There is normal lumbar lordosis. The vertebral heights, alignment and the disc heights are normal. No visible acute fracture, dislocation or lytic process seen. There are superior endplate spurs L3 and L4 vertebra. No lytic process. Dorsal spine: There is maintained thoracic kyphosis. The vertebral heights, alignment and disc heights are normal. There is mild ventral spurring T11 and T12 vertebra. No visible acute fracture, dislocation or subluxation seen. There is no lytic process. The paravertebral soft tissues are normal. XR/XR lumbar spine 2-3V IMPRESSION: Unremarkable lumbar spine exam. Mild spurring along the superior endplate L3and L4 vertebra. Unremarkable dorsal spine exam .
--- NOTE | ~2021-10-05 | XR_ITS ---
EXAMINATION: THORACIC AND LUMBAR SPINE CLINICAL INFORMATION: Low back pain. COMPARISON: Lumbar spine T10-T11 2010 TECHNIQUE: Thoracic spine 3 views. Lumbar spine 2 views. FINDINGS: Lumbar spine: There is normal lumbar lordosis. The vertebral heights, alignment and the disc heights are normal. No visible acute fracture, dislocation or lytic process seen. There are superior endplate spurs L3 and L4 vertebra. No lytic process. Dorsal spine: There is maintained thoracic kyphosis. The vertebral heights, alignment and disc heights are normal. There is mild ventral spurring T11 and T12 vertebra. No visible acute fracture, dislocation or subluxation seen. There is no lytic process. The paravertebral soft tissues are normal. XR/XR thoracic spine 2V IMPRESSION: Unremarkable lumbar spine exam. Mild spurring along the superior endplate L3and L4 vertebra. Unremarkable dorsal spine exam .
--- NOTE | ~2021-10-05 | CT_ITS ---
EXAMINATION: CT HEAD WITHOUT CONTRAST CLINICAL INFORMATION: Stroke protocol. Altered mental status. COMPARISON: 10/03/2021 TECHNIQUE: Contiguous axial imaging was performed from the skull base to vertex without intravenous contrast. This CT examination was performed using dose optimization techniques as appropriate, variously including the following: * Automated exposure control * Adjustment of mA and/or kV according to patient size (this includes techniques or standardized protocols for targeted exams where dose is matched to indication/reason for exam; i.e. extremities or head) Use of iterative reconstruction technique DLP: 797 mGy-cm. FINDINGS: There is no evidence of acute intracranial hemorrhage or territorial infarction. No abnormal mass effect or midline shift is seen. Sigala to white matter differentiation is well preserved. No extra-axial fluid collections are identified. No hydrocephalus. No significant volume loss. There is no abnormal attenuation within the brain parenchyma. The osseous structures and soft tissues are normal. The mastoid air cells and visualized portions of the paranasal sinuses are well aerated. CT/CT head for stroke IMPRESSION: No acute intracranial pathology. This critical result was discussed with Casimiro Crawford MD by telephone at 10/05/2021 2:53 AM and it was ascertained that the content and urgency of the report was understood at the time of direct communication.
--- NOTE | 2021-10-05 02:37 | ECG_ITS ---
Test Reason : Stroke rule out atrial fibrillation Blood Pressure : / mmHG Vent. Rate : 074 BPM Atrial Rate : 074 BPM P-R Int : 132 ms QRS Dur : 136 ms QT Int : 436 ms P-R-T Axes : 022 -53 001 degrees QTc Int : 483 ms Normal sinus rhythm Right bundle branch block Left anterior fascicular block Bifascicular block Abnormal ECG When compared with ECG of 02-OCT-2021 18:08, No significant change was found Referred By: Casimiro Crawford Electronically Signed By:BELEM LOUISE
[2021-10-05 02:46] LABS: Prothrombin Time Whole Bld POC 12.9 sec (11.1-13.5); ~PT, ~INR - Anti Coag Clinic 1.1 (0.9-1.1)
[2021-10-05 02:46] LABS: Glucose, Whole Blood 260 mg/dL (60-115)
[2021-10-05 02:58] LABS: Imm Gran Abs Auto 0.01 X10*3/uL (0.00-0.03); Imm Gran Pct Auto 0.2 % (0.0-0.4); MANUAL DIFF FLAG SCAN; PLT CLUMP 1; Red Blood Count 5.02 X10*6/uL (4.60-5.80); Red Cell Distribution Width 13.8 % (11.0-16.0); SCAN SMEAR FLAG 1
[2021-10-05 03:00] LABS: Basophils Percent Auto 0.3 % (0-2); Eosinophils Percent Auto 0.5 % (0-4); Hematocrit 46.6 % (42.0-52.0); Lymphocytes Percent Auto 32.9 % (20-40); Mean Corpuscular HGB Conc 32.2 g/dl (31.0-36.0); Mean Corpuscular Hemoglobin 29.9 pg (27.0-33.0); Mean Corpuscular Volume 92.8 fL (80.0-98.0); Mean Platelet Volume 11.1 fL (9.4-12.4); Monocytes Absolute Auto 0.5 X10*3/uL (0.1-1.2); Neutrophils Absolute Auto 3.4 x10*3/uL (2.0-8.3); Neutrophils Percent Auto 57.1 % (45-73)
[2021-10-05 03:05] LABS: INTERNATIONAL NORM RATIO 1.1 (0.9-1.1); Prothrombin Time 12.1 SEC (9.9-13.0)
[2021-10-05 03:08] LABS: Partial Thromboplastin Time 33.8 SEC (24.1-38.0)
[2021-10-05 03:11] LABS: Stroke Lab Use COMPLETE
[2021-10-05 03:18] LABS: Alanine Aminotransferase 33 U/L (0-40); Albumin Level 4.3 g/dL (3.5-5.0); Alkaline Phosphatase 106 U/L (39-117); Anion Gap 15 (12-20); Aspartate Amino Transferase 31 U/L (5-37); Bilirubin Direct 0.3 mg/dL (0.0-0.5); Bilirubin Total 0.7 mg/dL (0.0-1.0); Blood Urea Nitrogen 25 mg/dL (9-16); Calcium 10.1 mg/dL (8.4-10.2); Carbon Dioxide 28 mmol/L (22-29); Chloride 101 mmol/L (96-108); Estimated Glomerular Filt Rate 42; Glucose Random 278 mg/dL (60-115); Potassium 4.9 mmol/L (3.3-5.1); Sodium 139 mmol/L (135-145); Total Protein 8.2 g/dL (6.5-8.0); Troponin-I High Sensitivity 3.9 ng/L (<3.5-35.0)
[2021-10-05 03:23] LABS: Platelet Count 134 X10*3/uL (160-400); SLIDE REVIEW VERIFIED
--- NOTE | 2021-10-05 07:02 | ED.NEUROSD ---
HPI - Neuro Symptoms/Deficit General Chief Complaint: Stroke Stated Complaint: AMS SINCE FALL 3 DAYS AGO PER FAMILY Time Seen by Provider: 10/05/21 02:37 Source: patient Mode of arrival: EMS Limitations: altered mental status History of Present Illness HPI Narrative: 65-year-old male who is brought to emergency department by ambulance for evaluation of altered mental status possible stroke. The paramedics states the patient fell 3 days ago as per the family and that they were concerned about a stroke so he was brought in as a stroke alert. I evaluated the patient on the technician submarine cable equipment stretcher. The patient states that he is having lower back pain. He does appear to be altered. This patient was seen by me in the emergency department on 10/02/2021 at 11:47 p.m. for similar presentation. At that time, the patient was evaluated for dizziness and back pain. His workup did include a CT scan of the head and laboratory evaluation which was unremarkable. Patient was discharged home at that time. Given his reported altered mental status by the family, the patient was sent directly to the CT scan and a stroke workup was ordered. Related Data Home Medications Medication Instructions Recorded Confirmed aspirin 81 mg tablet,delayed 81 mg PO DAILY 02/28/21 07/02/21 release (Adult Aspirin Regimen) baclofen 20 mg tablet 1 tab PO TID PRN 06/20/21 07/02/21 bictegravir 50 mg-emtricitabine 1 tab PO BEDTIME 06/20/21 07/02/21 200 mg-tenofovir alafenam 25 mg tablet (Biktarvy) diazepam 5 mg tablet 1 tab PO BEDTIME PRN 06/20/21 07/02/21 glipizide 10 mg tablet 2 tab PO BID 06/20/21 07/02/21 insulin glargine 100 unit/mL (3 24 unit SUBCUT DAILY 06/20/21 07/02/21 mL) subcutaneous pen (Lantus Solostar U-100 Insulin) metoprolol succinate 25 mg 1 tab PO QAM 06/20/21 07/02/21 tablet,extended release 24 hr morphine 30 mg tablet,extended 1 tab PO TID 06/20/21 07/02/21 release omega-3 fatty acids-fish oil 340 2 cap PO QAM 06/20/21 07/02/21 mg-1,000 mg capsule (Fish Oil) omeprazole 40 mg capsule,delayed 1 cap PO QAM 06/20/21 07/02/21 release oxycodone-acetaminophen 5 mg-325 1 tab PO BID PRN 06/20/21 07/02/21 mg tablet pioglitazone 45 mg tablet 1 tab PO QAM 06/20/21 07/02/21 Previous Rx's Medication Instructions Recorded rosuvastatin 10 mg tablet 10 mg PO DAILY 90 Days #90 tab 02/28/21 ezetimibe 10 mg tablet (Zetia) 10 mg PO DAILY 90 Days #90 tab 04/22/21 sodium,potassium,mag sulfates 17.5 See Rx Instructions PO .COMPLEX 05/21/21 gram-3.13 gram-1.6 gram oral soln #354 ml (Suprep Bowel Prep Kit) Allergies Allergy/AdvReac Type Severity Reaction Status Date / Time amoxicillin [Amoxicillin] Allergy Mild RASH Verified 10/02/21 18:44 Penicillins Allergy Mild RASH Verified 10/02/21 18:44 sulfamethoxazole Allergy Unknown UNKNOWN Verified 10/02/21 18:44 [From BACTRIM] trimethoprim [From BACTRIM] Allergy Unknown UNKNOWN Verified 10/02/21 18:44 atorvastatin [Lipitor] AdvReac Unknown unk Verified 10/02/21 18:44 Review of Systems Review of Systems: Yes all other systems are reviewed and are negative PMFSH Past Medical History Medical History Arthritis CAD (coronary artery disease) Chronic back pain Colon cancer screening COVID-19 vaccine series completed GERD (gastroesophageal reflux disease) History of anemia HIV (human immunodeficiency virus infection) HLD (hyperlipidemia) HTN (hypertension) Hx of major depression Old anterior myocardial infarction Surgical History History of bilateral cataract extraction History of esophagogastroduodenoscopy (EGD) History of neck surgery History of right knee surgery Hx of colonoscopy Stented coronary artery Family History Family History Father No problems noted. Mother No problems noted. Social History Social History Are you a primary resident care supervisor to a significant other at home: No Do you presently have visiting nurse or other home services: No Advance Directives: No Advance Directives Information Provided: No Physical Exam Vital Signs: Vital Signs: Last Vital Signs Pulse 64 10/05/21 03:08 Resp 15 10/05/21 03:08 BP 151/74 H 10/05/21 03:08 Pulse Ox 97 10/05/21 03:08 Const: Other: Lethargic, male patient, oriented to person and place, complains of back pain but otherwise has no other complaints, does appear to be in distress when he moves on the stretcher secondary to his back pain. HENMT: Head: Yes normal to inspection, Yes normocephalic and Yes atraumatic Ears: external ears normal General nose exam: Normal external nose present Face and sinus: Yes normal facial exam Mouth: Normal oral and palatal mucosa present Throat: Yes posterior oropharynx normal Eyes: General: appearance normal, both eyes and all related structures Neck: Neck: Yes normal visual inspection, Yes no lymphadenopathy, Yes trachea midline and Yes supple Chest: Chest palpation & inspection: normal inspection of the chest and normal palpation of entire chest wall Resp: Effort & Inspection: normal respiratory effort and able to speak in complete sentences Auscultation: clear to auscultation bilaterally Cardio: Rate: regular rate Rhythm: regular rhythm Heart sounds: S1 normal heart sound present, S2 normal heart sound present and no murmurs GI: Inspection: Yes normal to inspection Palpation (GI): Soft to palpation, nontender and no guarding Auscultation: normal bowel sounds Back/Spine/Pelvis: Other: The patient does have pain with palpation of his thoracic, lumbar and sacral spine, the patient has positive straight leg raises bilaterally. He does appear to be able to move his upper and lower extremities symmetrically. Skin: General skin exam: no rashes or lesions noted Neuro: Other: Awake alert male patient oriented to person place, able to move upper and lower extremities symmetrically Extrem: General: Yes normal to inspection Psych: Appearance: grossly normal Speech and movement: Normal speech and movement present Affect: normal affect Attitude: cooperative Thought process: Normal thought process present Thought content: Normal thought content present Course Course Course Narrative: 65-year-old male who was brought to the emergency department by ambulance for evaluation of altered level of consciousness and possible stroke. Patient's examination on presentation did reveal that he was somnolent but he was oriented to person and place seem to move all the extremities symmetrically. He was complaining of back pain and on his exam he did have tenderness with palpation of his spine diffusely with positive straight leg raises. Patient had a CT scan of the brain which was unchanged from the previous scan on 10/02/2021 with no acute findings. Patient had a CBC which was normal. CMP revealed an elevated BUN and creatinine of 25 and 1.65 which is unchanged from his previous 1. Glucose was elevated at 278. At this time, I do not have a clear etiology for the patient's altered mental status however he does have significant back pain which she also complained of his 1st visit on 10/02/2021. Therefore I ordered CT scans of the patient's thoracic and lumbar spine to evaluate for fracture/possible malignancy. Patient was ordered to get Toradol 15 mg IV. The patient's family is not here in the emergency department. I did call the next of kin contact number but this number is out of service. Patient pale be treated with Toradol 15 mg IV. At the end of my shift, patient's workup is not complete therefore the patient's care was turned over to my colleague, Dr. Staley. MDM - Neuro Symptoms/Deficit Lab Data Result diagrams: 10/05/21 02:50 10/05/21 02:50 Labs: Lab Results 10/05/21 10/05/21 10/05/21 Range/Units 02:41 02:43 02:50 WBC 6.0 (4.8-10.8) X10*3/uL RBC 5.02 (4.60-5.80) X10*6/uL Hgb 15.0 (14.0-18.0) g/dl Hct 46.6 (42.0-52.0) % MCV 92.8 (80.0-98.0) fL MCH 29.9 (27.0-33.0) pg MCHC 32.2 (31.0-36.0) g/dl RDW 13.8 (11.0-16.0) % Plt Count 134 L (160-400) X10*3/uL MPV 11.1 (9.4-12.4) fL Immature Gran % (Auto) 0.2 (0.0-0.4) % Neut % (Auto) 57.1 (45-73) % Lymph % (Auto) 32.9 (20-40) % [place] % (Auto) 9.0 (2-11) % Eos % (Auto) 0.5 (0-4) % Baso % (Auto) 0.3 (0-2) % Lymph # (Auto) 2.0 (1.2-4.9) X10*3/uL [place] # (Auto) 0.5 (0.1-1.2) X10*3/uL Eos # (Auto) 0.0 (0.0-0.4) X10*3/uL Baso # (Auto) 0.0 (0.0-0.2) X10*3/uL Abs Immat Gran (auto) 0.01 (0.00-0.03) X10*3/uL Absolute Neuts (auto) 3.4 (2.0-8.3) x10*3/uL Absolute Nucleated RBC 0.000 (0.0-0.012) X10*3/uL Nucleated RBC % (auto) 0.0 (0.0-0.2) /100WBC Smear Tech's Comments VERIFIED PT (9.9-13.0) SEC Whole Blood PT 12.9 (11.1-13.5) sec INR (0.9-1.1) Whole Blood INR 1.1 (0.9-1.1) APTT (24.1-38.0) SEC Sodium (135-145) mmol/L Potassium (3.3-5.1) mmol/L Chloride (96-108) mmol/L Carbon Dioxide (22-29) mmol/L Anion Gap (12-20) BUN (9-16) mg/dL Creatinine (0.5-1.4) mg/dL Estim Creat Clear Calc Estimated GFR POC Glucose 260 H (60-115) mg/dL Random Glucose (60-115) mg/dL Calcium (8.4-10.2) mg/dL Total Bilirubin (0.0-1.0) mg/dL Direct Bilirubin (0.0-0.5) mg/dL AST (5-37) U/L ALT (0-40) U/L Alkaline Phosphatase (39-117) U/L Total Creatine Kinase (38-174) U/L Troponin I High Sens (<3.5-35.0) ng/L Total Protein (6.5-8.0) g/dL Albumin (3.5-5.0) g/dL 10/05/21 10/05/21 10/05/21 Range/Units 02:50 02:50 02:50 WBC (4.8-10.8) X10*3/uL RBC (4.60-5.80) X10*6/uL Hgb (14.0-18.0) g/dl Hct (42.0-52.0) % MCV (80.0-98.0) fL MCH (27.0-33.0) pg MCHC (31.0-36.0) g/dl RDW (11.0-16.0) % Plt Count (160-400) X10*3/uL MPV (9.4-12.4) fL Immature Gran % (Auto) (0.0-0.4) % Neut % (Auto) (45-73) % Lymph % (Auto) (20-40) % Berrien % (Auto) (2-11) % Eos % (Auto) (0-4) % Baso % (Auto) (0-2) % Lymph # (Auto) (1.2-4.9) X10*3/uL Berrien # (Auto) (0.1-1.2) X10*3/uL Eos # (Auto) (0.0-0.4) X10*3/uL Baso # (Auto) (0.0-0.2) X10*3/uL Abs Immat Gran (auto) (0.00-0.03) X10*3/uL Absolute Neuts (auto) (2.0-8.3) x10*3/uL Absolute Nucleated RBC (0.0-0.012) X10*3/uL Nucleated RBC % (auto) (0.0-0.2) /100WBC Smear Tech's Comments PT 12.1 (9.9-13.0) SEC Whole Blood PT (11.1-13.5) sec INR 1.1 (0.9-1.1) Whole Blood INR (0.9-1.1) APTT 33.8 (24.1-38.0) SEC Sodium 139 (135-145) mmol/L Potassium 4.9 (3.3-5.1) mmol/L Chloride 101 (96-108) mmol/L Carbon Dioxide 28 (22-29) mmol/L Anion Gap 15 (12-20) BUN 25 H (9-16) mg/dL Creatinine 1.65 H (0.5-1.4) mg/dL Estim Creat Clear Calc TNP Estimated GFR 42 POC Glucose (60-115) mg/dL Random Glucose 278 H (60-115) mg/dL Calcium 10.1 (8.4-10.2) mg/dL Total Bilirubin 0.7 (0.0-1.0) mg/dL Direct Bilirubin 0.3 (0.0-0.5) mg/dL AST 31 (5-37) U/L ALT 33 (0-40) U/L Alkaline Phosphatase 106 (39-117) U/L Total Creatine Kinase 139 (38-174) U/L Troponin I High Sens 3.9 (<3.5-35.0) ng/L Total Protein 8.2 H (6.5-8.0) g/dL Albumin 4.3 (3.5-5.0) g/dL NIH Stroke Scale Internal: Initial- Upon Arrival Level of Consciousness: Alert Level of Consciousness Questions: Answers both questions correctly Level of Consciousness Commands: Performs both tasks correctly Best Gaze: Normal Visual: No visual loss Facial Palsy: Normal Motor Arm (Right): No drift Motor Arm (Left): No drift Motor Leg (Right): No drift Motor Leg (Left): No drift Limb Ataxia: Absent Sensory: Normal Best Language: No aphasia Dysarthia: Normal Extinction and Inattention: No abnormality Score: 0 Discharge Plan Discharge Clinical Impression: Acute alteration in mental status, Back pain Patient Disposition: Still a Patient Prescriptions: No Action rosuvastatin 10 mg tablet 10 mg PO DAILY 90 Days Qty: 90 RF: 3 ezetimibe [Zetia] 10 mg tablet 10 mg PO DAILY 90 Days Qty: 90 RF: 1 glipizide 10 mg tablet 2 tab PO BID RF: 0 pioglitazone 45 mg tablet 1 tab PO QAM RF: 0 morphine 30 mg tablet extended release 1 tab PO TID RF: 0 omeprazole 40 mg capsule,delayed release(DR/EC) 1 cap PO QAM RF: 0 baclofen 20 mg tablet 1 tab PO TID PRN (Reason: muscle spasm) RF: 0 oxycodone-acetaminophen 5-325 mg tablet 1 tab PO BID PRN (Reason: pain) RF: 0 metoprolol succinate 25 mg tablet extended release 24 hr 1 tab PO QAM RF: 0 diazepam 5 mg tablet 1 tab PO BEDTIME PRN (Reason: muscle spasm) RF: 0 Fish Oil 340-1,000 mg capsule 2 cap PO QAM RF: 0 Lantus Solostar U-100 Insulin 100 unit/mL (3 mL) insulin pen 24 unit subcut DAILY RF: 0 Biktarvy 50-200-25 mg tablet 1 tab PO BEDTIME RF: 0 aspirin [Adult Aspirin Regimen] 81 mg tablet,delayed release (DR/EC) 81 mg PO DAILY RF: 0 Suprep Bowel Prep Kit 17.5-3.13-1.6 gram recon soln See Rx Instructions PO .COMPLEX Qty: 354 RF: 0
[2021-10-05] MEDS: Ketorolac Tromethamine 30 MG/ML VIAL 15 MG IVPUSH (07:36)
[2021-10-05 15:17] LABS: Glucose, Whole Blood 295 mg/dL (60-115)
[2021-10-05] MEDS: Ezetimibe 10 MG TABLET PO (18:20)
[2021-10-05] MEDS: oxyCODONE HCl Immed Release 5 MG TABLET PO (18:21)
[2021-10-05] MEDS: Insulin Glargine,Hum.rec.anlog 100 UNIT/ML 10 ML VIAL 24 UNIT SUBCUT (18:21)
[2021-10-05] MEDS: Bictegrav/Emtricit/Tenofov Ala TABLET 1 TAB PO (20:11)
[2021-10-05] MEDS: glipiZIDE 10 MG TABLET 20 MG PO (20:11)
[2021-10-05] MEDS: Aspirin Enteric Coated 81 MG TABLET.DR PO (20:11)
[2021-10-05] MEDS: Morphine Sulfate ER 30 MG TABLET.ER PO (20:11)
[2021-10-05] MEDS: Baclofen 20 MG TABLET PO (20:15)
[2021-10-05] MEDS: diazePAM 5 MG TABLET PO (20:15)
[2021-10-06 07:26] VITALS: BP 143/77; PULSE 71; RESP 16; TEMP 36.4; O2SAT 96
--- NOTE | 2021-10-06 07:48 | PC.NURSE ---
pt poc was 66 I gave pt orange juice and breakfast recheck poc it was 99 at 0821
[2021-10-06 08:30] LABS: Glucose, Whole Blood 66 mg/dL (60-115)
[2021-10-06 08:30] LABS: Glucose, Whole Blood 99 mg/dL (60-115)
[2021-10-06 09:25] VITALS: BP 146/84; PULSE 77; RESP 14; TEMP 36.5; O2SAT 98
[2021-10-06] MEDS: Morphine Sulfate ER 30 MG TABLET.ER PO (10:08)
[2021-10-06] MEDS: Omeprazole 40 MG CAPSULE.DR PO (10:08)
[2021-10-06] MEDS: Ezetimibe 10 MG TABLET PO (10:08)
[2021-10-06 10:09] VITALS: BP 146/84; PULSE 76
[2021-10-06] MEDS: Metoprolol Succinate ER 25 MG TAB.ER.24H PO (10:09)
[2021-10-06] MEDS: Baclofen 20 MG TABLET PO (10:09)
[2021-10-06] MEDS: Insulin Glargine,Hum.rec.anlog 100 UNIT/ML 10 ML VIAL 24 UNIT SUBCUT (10:10)
[2021-10-06 10:12] VITALS: BP 146/84; PULSE 76
--- NOTE | 2021-10-06 10:52 | MHC.CM.ED ---
Addendum entered by Fina Orellana 10/06/21 11:37: Covid swab is pending. Original Note: Received case management consult this morning. Patient came to ER after experiencing a fall on 10/02. Work up essentially negative. Physical therapy eval completed. Short term rehab is recommended. Met with patient, daughter, Ai, and son Luc at bedside. Patient lives alone, has been ambulating with a walker/cane since 10/02 and had no services prior to coming to the hospital. PCP verified as [facility]. Copy of HCP verified to be on file. Patient received Moderna vaccines on 01/30 and 02/24. List of facilities provided to patient and family from [facility]. Facility choices: 1)[facility] 2)[facility]. Referral made via [employer]. Continue to monitor for d/c needs.
[2021-10-06] MEDS: Pioglitazone HCL 45 MG TABLET PO (11:23)
[2021-10-06] MEDS: glipiZIDE 10 MG TABLET 20 MG PO (11:23)
--- NOTE | 2021-10-06 11:49 | MHC.CM.ED ---
[facility] is able to offer a bed if Covid swab is negative. Covid swab is still pending at this time. Patient, daughter Ai and son Luc aware. Continue to monitor for d/c needs.
[2021-10-06 12:27] LABS: Influenza A PCR NEGATIVE (Negative); Influenza B PCR NEGATIVE (Negative); Resp Syncy Virus RNA Qual PCR NEGATIVE (Negative); SARS COV2 PCR INHOUSE NEGATIVE (Negative)
[2021-10-06 13:02] VITALS: BP 105/71; PULSE 81; RESP 16; TEMP 37.1; O2SAT 98
[2021-10-06 13:18] LABS: Glucose, Whole Blood 182 mg/dL (60-115)
--- NOTE | 2021-10-06 13:40 | MHC.CM.ED ---
[facility] can offer a bed. Patient can leave at 3pm. [facility] booked. Med nec with chart. Patient, son Luc, Daughter Ai, Sharmaine JAY and Gordon GUZMAN aware. Continue to monitor for d/c needs.
== END 2021-10-06 15:26 | disposition skilled nursing facility (03) ==
PROVIDERS: Emergency Medicine; Emergency Provider Emergency Medicine Emergency Medical Services; PCP Family Medicine
DX: R41.82 Altered mental status, unspecified (principal); M54.50 Low back pain, unspecified; M54.6 Pain in thoracic spine; Z20.822 Contact with and (suspected) exposure to COVID-19; B20 Human immunodeficiency virus [HIV] disease; I10 Essential (primary) hypertension; I25.2 Old myocardial infarction; E78.5 Hyperlipidemia, unspecified; Z79.82 Long term (current) use of aspirin; Z79.899 Other long term (current) drug therapy; Z79.02 Long term (current) use of antithrombotics/antiplatelets
CPT/HCPCS: 0241U; 36415; 70450; 72070; 72100; 80048; 80076; 82550; 82947; 84484; 85025; 85610; 85730; 93005; 96374; 97163; 99285; J1885

== ENCOUNTER 2021-10-29 21:34 | Emergency (ER) | payer MEDICARE, OTHER, SELFPAY ==
--- NOTE | ~2021-10-29 | XR_ITS ---
EXAMINATION: XR HAND, LEFT CLINICAL INFORMATION: Pain to the third digit. COMPARISON: None TECHNIQUE: 3 views. of the left hand. FINDINGS: The bones and soft tissues are normal. No fracture. Alignment is anatomic. Joint spaces are maintained. No erosions or soft tissue calcifications. XR/XR hand LT min 3V IMPRESSION: Normal left hand.
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
[2021-10-29 21:56] VITALS: BP 155/72; BP 170/90; PULSE 73; PULSE 80; RESP 16; TEMP 37.1; O2SAT 97; O2SAT 98; BMI 27.4
[2021-10-29] MEDS: 0.9 % Sodium Chloride 1,000 ML 999 ML IVCONT ×2 (22:10→22:25)
[2021-10-29 22:16] LABS: Glucose, Whole Blood 211 mg/dL (60-115)
[2021-10-29 22:36] LABS: Venous Blood Gas Refer to POC result
[2021-10-29 22:36] LABS: Eosinophils Percent Auto 0.4 % (0-4); Hemoglobin 11.9 g/dl (14.0-18.0); Imm Gran Abs Auto 0.02 X10*3/uL (0.00-0.03); Imm Gran Pct Auto 0.4 % (0.0-0.4); MANUAL DIFF FLAG SCAN; PLT CLUMP 1; Red Cell Distribution Width 13.9 % (11.0-16.0); SCAN SMEAR FLAG 1
[2021-10-29 22:37] LABS: VBG Base Excess 2.2 mmol/L; VBG HCO3 28 mmol/L (22-26); VBG pCO2 48 mmHg; VBG pH 7.37 (7.32-7.43); VBG pO2 41 mmHg
[2021-10-29 22:38] LABS: Basophils Percent Auto 0.4 % (0-2); Hematocrit 36.5 % (42.0-52.0); Lymphocytes Absolute Auto 1.1 X10*3/uL (1.2-4.9); Lymphocytes Percent Auto 19.4 % (20-40); Mean Corpuscular HGB Conc 32.6 g/dl (31.0-36.0); Mean Corpuscular Hemoglobin 30.6 pg (27.0-33.0); Mean Corpuscular Volume 93.8 fL (80.0-98.0); Mean Platelet Volume 10.6 fL (9.4-12.4); Monocytes Absolute Auto 0.5 X10*3/uL (0.1-1.2); Monocytes Percent Auto 9.5 % (2-11); Neutrophils Absolute Auto 3.9 x10*3/uL (2.0-8.3); Neutrophils Percent Auto 69.9 % (45-73); Red Blood Count 3.89 X10*6/uL (4.60-5.80)
[2021-10-29 22:48] LABS: Ammonia 23 umol/L (13-55)
[2021-10-29 22:57] LABS: Alanine Aminotransferase 28 U/L (0-40); Albumin Level 3.6 g/dL (3.5-5.0); Alkaline Phosphatase 67 U/L (39-117); Anion Gap 8 (12-20); Aspartate Amino Transferase 25 U/L (5-37); Bilirubin Direct 0.2 mg/dL (0.0-0.5); Bilirubin Total 0.5 mg/dL (0.0-1.0); Blood Urea Nitrogen 21 mg/dL (9-16); Calcium 9.2 mg/dL (8.4-10.2); Carbon Dioxide 29 mmol/L (22-29); Chloride 111 mmol/L (96-108); Creatinine Clr Calc Pharmacy 48.4; Estimated Glomerular Filt Rate 53; Glucose Random 222 mg/dL (60-115); Potassium 4.2 mmol/L (3.3-5.1); Sodium 144 mmol/L (135-145); Total Protein 6.8 g/dL (6.5-8.0)
[2021-10-29 23:15] LABS: Platelet Count 124 X10*3/uL (160-400); SLIDE REVIEW VERIFIED; White Blood Count 5.7 X10*3/uL (4.8-10.8)
[2021-10-30] VITALS: BP 146/80; PULSE 69; RESP 16; O2SAT 96
[2021-10-30 00:36] LABS: Appearance Urine CLEAR; Color Urine STRAW; Glucose Urine UA >=1000 MG/DL (NEG); Leukocyte Esterase Urine NEG (NEG); Nitrite Urine NEG (NEG); PH 6.5 (5.0-8.0); Urine Blood NEG (NEG); Urine Ketones NEG (NEG); Urine Protein NEG (NEG-TRACE)
[2021-10-30 00:43] LABS: Calcium Phosphate Crystals Ur 1+ /LPF; RBC Urine 0-2 /HPF (0); Squamous Epithelial Cell Urine TRACE /LPF; WBC Urine 0-2 /HPF (0-4)
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
[2021-10-30 01:05] LABS: Amphetamine Screen Urine Not Detected (Not Detect); Barbiturates, Urine Not Detected (Not Detect); Benzodiazepines Screen Urine POSITIVE (Not Detect); Cannabinoid Screen Urine Not Detected (Not Detect); Cocaine Screen Urine Not Detected (Not Detect); Fentanyl, urine Not Detected (Not Detect); Opiate Screen Urine Not Detected (Not Detect); Phencyclidine Screen Urine Not Detected (Not Detect)
== END 2021-10-30 01:07 | disposition home or self-care (01) ==
PROVIDERS: Emergency Provider Emergency Medicine
DX: R53.83 Other fatigue (principal); S60.222A Contusion of left hand, initial encounter; Y04.2XXA Assault by strike against or bumped into by another person, initial encounter; I12.9 Hypertensive chronic kidney disease with stage 1 through stage 4 chronic kidney disease, or unspecified chronic kidney disease; E11.22 Type 2 diabetes mellitus with diabetic chronic kidney disease; N18.9 Chronic kidney disease, unspecified; E78.5 Hyperlipidemia, unspecified; B20 Human immunodeficiency virus [HIV] disease; Z79.4 Long term (current) use of insulin; Z79.82 Long term (current) use of aspirin; Z79.02 Long term (current) use of antithrombotics/antiplatelets; Y93.9 Activity, unspecified; Y92.9 Unspecified place or not applicable; Y99.9 Unspecified external cause status
CPT/HCPCS: 36415; 73130; 80048; 80076; 80307; 81001; 82140; 82803; 82947; 85025; 96360; 99284

== ENCOUNTER 2021-11-13 10:57 | Outpatient (REF) | payer MEDICARE, OTHER, SELFPAY ==
--- NOTE | ~2021-11-13 | XR_ITS ---
EXAMINATION: XR LUMBOSACRAL SPINE CLINICAL INFORMATION: Chronic pain syndrome COMPARISON: Previous lumbar spine x-ray September 2021 TECHNIQUE: Three views of the lumbosacral spine. FINDINGS: Bone alignment is normal. No fracture or dislocation is seen. There is mild disc space narrowing at L5-S1. There is lower lumbar spine facet arthritis. There is evidence of atherosclerotic disease. There is abnormal attenuation of the femoral heads questionable for bilateral femoral head AVN. XR/XR lumbar spine 2-3V IMPRESSION: Mild degenerative changes of the lower lumbar spine. Question bilateral femoral head AVN.
--- NOTE | ~2021-11-13 | XR_ITS ---
EXAMINATION: XR CERVICAL SPINE CLINICAL INFORMATION: Chronic pain syndrome COMPARISON: Previous x-ray February 2014 MRI [address] November 2019 TECHNIQUE: 3 views of the cervical spine were obtained. FINDINGS: There is mild anterior subluxation of C6 with respect to C7 measuring 1 to 2 mm. This is stable. Bone alignment is otherwise normal. No fracture or dislocation is seen. There are post laminectomy changes from C4 to C7. There is degenerative spondylosis and degenerative disc disease at C5-C6 and C6-C7. Prevertebral soft tissues are normal. XR/XR cervical spine 3V IMPRESSION: Stable post surgical changes. Stable degenerative spondylosis and degenerative disc disease at C5-C6 and C6-C7.
--- NOTE | ~2021-11-13 | XR_ITS ---
EXAMINATION: XR THORACOLUMBAR SPINE CLINICAL INFORMATION: Chronic pain syndrome. COMPARISON: Previous x-ray most recent September 2021 TECHNIQUE: 2 views of the thoracic spine FINDINGS: Bone alignment is normal. No fracture or dislocation is seen. Disc spaces are normal. There is mild degenerative spondylosis of the lower thoracic spine. Paraspinal soft tissues are unremarkable. XR/XR thoracic spine 2V IMPRESSION: Mild degenerative spondylosis of the lower thoracic spine.
[2021-11-13 11:43] LABS: MANUAL DIFF FLAG NO
[2021-11-13 11:57] LABS: Basophils Percent Auto 0.2 % (0-2); Hematocrit 43.7 % (42.0-52.0); Hemoglobin 14.3 g/dl (14.0-18.0); Imm Gran Abs Auto 0.02 X10*3/uL (0.00-0.03); Imm Gran Pct Auto 0.3 % (0.0-0.4); Lymphocytes Absolute Auto 0.5 X10*3/uL (1.2-4.9); Lymphocytes Percent Auto 7.1 % (20-40); Mean Corpuscular HGB Conc 32.7 g/dl (31.0-36.0); Mean Corpuscular Hemoglobin 30.4 pg (27.0-33.0); Mean Corpuscular Volume 92.8 fL (80.0-98.0); Mean Platelet Volume 10.7 fL (9.4-12.4); Monocytes Absolute Auto 0.4 X10*3/uL (0.1-1.2); Neutrophils Absolute Auto 5.5 x10*3/uL (2.0-8.3); Neutrophils Percent Auto 86.4 % (45-73); Platelet Count 124 X10*3/uL (160-400); Red Blood Count 4.71 X10*6/uL (4.60-5.80); Red Cell Distribution Width 13.5 % (11.0-16.0); White Blood Count 6.3 X10*3/uL (4.8-10.8)
[2021-11-13 12:22] LABS: Alanine Aminotransferase 29 U/L (0-40); Albumin Level 4.3 g/dL (3.5-5.0); Alkaline Phosphatase 103 U/L (39-117); Anion Gap 12 (12-20); Aspartate Amino Transferase 30 U/L (5-37); Bilirubin Total 0.8 mg/dL (0.0-1.0); Blood Urea Nitrogen 22 mg/dL (9-16); Calcium 9.8 mg/dL (8.4-10.2); Carbon Dioxide 30 mmol/L (22-29); Chloride 101 mmol/L (96-108); Estimated Glomerular Filt Rate 41; Glucose Random 248 mg/dL (60-115); Potassium 4.7 mmol/L (3.3-5.1); Sodium 138 mmol/L (135-145)
[2021-11-13 12:30] LABS: Appearance Urine CLEAR; Color Urine YELLOW; Glucose Urine UA >=1000 MG/DL (NEG); Leukocyte Esterase Urine NEG (NEG); Nitrite Urine NEG (NEG); PH 5.5 (5.0-8.0); Specific Gravity - Urine 1.025 (1.005-1.025); Urine Blood TRACE (NEG); Urine Ketones 5 MG/DL (NEG); Urine Protein 1+ MG/DL (NEG-TRACE)
[2021-11-13 12:44] LABS: Prostate Specific Antigen 0.65 ng/mL (<0.05-4.0)
[2021-11-13 12:48] LABS: RBC Urine 0-2 /HPF (0); Squamous Epithelial Cell Urine TRACE /LPF; WBC Urine 0 /HPF (0-4)
[2021-11-14 08:31] LABS: Syphilis Screen Nonreactive (Nonreactive)
[2021-11-14 15:30] LABS: Absolute CD3 Count 289 cells/uL (840-3060); Absolute CD4 Count 190 cells/uL (490-1740); Absolute CD8 Count 98 cells/uL (180-1170); Absolute Lymphocytes 456 cells/uL (850-3900); CD4 CD8 Ratio 1.94 (0.86-5.00); Percent CD3 Cells 63 % (57-85); Percent CD4 Cells 42 % (30-61); Percent CD8 Cells 21 % (12-42)
[2021-11-16 15:36] LABS: HIV RNA PCR Qn Copies <20 Copies/mL; HIV RNA PCR Qn Log Copies <1.30 Log cps/mL
== END 2021-11-13 10:58 | disposition home or self-care (01) ==
LOC: HO.XRAY 10:57
PROVIDERS: PCP Family Medicine; Visit Provider Family Medicine
DX: G89.4 Chronic pain syndrome (principal); B20 Human immunodeficiency virus [HIV] disease; Z12.5 Encounter for screening for malignant neoplasm of prostate
CPT/HCPCS: 36415; 72040; 72070; 72100; 80053; 81001; 84153; 85025; 86359; 86360; 86780; 87536

== ENCOUNTER 2021-11-24 15:03 | Emergency (ER) | payer MEDICARE, OTHER, SELFPAY ==
--- NOTE | ~2021-11-24 | XR_ITS ---
EXAMINATION: CHEST AND BILATERAL HIPS CLINICAL INFORMATION: Mental status change with question of avascular necrosis COMPARISON: Chest radiograph 12/04/2019, MRI bilateral hips 12/09/2011 TECHNIQUE: Single view chest and single view pelvis with 2 additional views each hip FINDINGS: No significant abnormality is seen involving the heart, lungs or mediastinum. Some subchondral cyst formation is present in the left humeral head adjacent to the glenoid. Findings could represent osteonecrosis. No rotator cuff calcifications are seen. Subchondral sclerotic changes are present in both hips. Hip joints are well maintained. Findings are suggestive of osteonecrosis. No acute fracture is seen. XR/XR hips TRAMAINE min 3V IMPRESSION: Sclerotic changes in the femoral heads as well as the left humeral head suggesting osteonecrosis.
--- NOTE | ~2021-11-24 | XR_ITS ---
EXAMINATION: CHEST AND BILATERAL HIPS CLINICAL INFORMATION: Mental status change with question of avascular necrosis COMPARISON: Chest radiograph 12/04/2019, MRI bilateral hips 12/09/2011 TECHNIQUE: Single view chest and single view pelvis with 2 additional views each hip FINDINGS: No significant abnormality is seen involving the heart, lungs or mediastinum. Some subchondral cyst formation is present in the left humeral head adjacent to the glenoid. Findings could represent osteonecrosis. No rotator cuff calcifications are seen. Subchondral sclerotic changes are present in both hips. Hip joints are well maintained. Findings are suggestive of osteonecrosis. No acute fracture is seen. XR/XR chest 1V IMPRESSION: Sclerotic changes in the femoral heads as well as the left humeral head suggesting osteonecrosis.
[2021-11-24 15:22] VITALS: BP 115/71; PULSE 59; RESP 18; TEMP 36.9; O2SAT 99; BMI 26.6
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
[2021-11-24 17:49] VITALS: BP 163/67; PULSE 78; RESP 18; TEMP 36.5; O2SAT 100
--- NOTE | 2021-11-24 18:06 | ECG_ITS ---
Test Reason : ALTERED MENTAL STATUS Blood Pressure : / mmHG Vent. Rate : 062 BPM Atrial Rate : 062 BPM P-R Int : 162 ms QRS Dur : 142 ms QT Int : 442 ms P-R-T Axes : 055 -47 007 degrees QTc Int : 448 ms Normal sinus rhythm Left axis deviation Right bundle branch block Abnormal ECG When compared with ECG of 05-OCT-2021 02:46, No significant change was found Referred By: Maurilio Lewis Electronically Signed By:Yaron Sullivan
--- NOTE | 2021-11-24 18:36 | ED_ITS ---
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 (2.0-8.3) x10*3/uL Absolute Nucleated RBC (0.0-0.012) X10*3/uL Nucleated RBC % (auto) (0.0-0.2) /100WBC Smear Tech's Comments PT (9.9-13.0) SEC INR (0.9-1.1) Sodium (135-145) mmol/L Potassium (3.3-5.1) mmol/L Chloride (96-108) mmol/L Carbon Dioxide (22-29) mmol/L Anion Gap (12-20) BUN (9-16) mg/dL Creatinine (0.5-1.4) mg/dL Estim Creat Clear Calc Estimated GFR POC Glucose 122 H (60-115) mg/dL Random Glucose (60-115) mg/dL Lactic Acid (0.5-2.0) mmol/L Calcium (8.4-10.2) mg/dL Total Bilirubin (0.0-1.0) mg/dL AST (5-37) U/L ALT (0-40) U/L Alkaline Phosphatase (39-117) U/L Ammonia (13-55) umol/L Troponin I High Sens (<3.5-35.0) ng/L Total Protein (6.5-8.0) g/dL Albumin (3.5-5.0) g/dL Urine Color Urine Appearance Urine pH (5.0-8.0) Ur Specific [place] (1.005-1.025) Urine Protein (NEG-TRACE) MG/DL Urine Glucose (UA) (NEG) MG/DL Urine Ketones (NEG) MG/DL Urine Blood (NEG) Urine Nitrite (NEG) Ur Leukocyte Esterase (NEG) Urine RBC (0) /HPF Urine WBC (0-4) /HPF Ur Squamous Epith Cells /LPF Calcium Phosphate Cryst /LPF Urine Bacteria /LPF Urine Opiates Screen POSITIVE H (Not Detect) Urine Fentanyl Screen Not Detected (Not Detect) Ur Barbiturates Screen Not Detected (Not Detect) Ur Phencyclidine Scrn Not Detected (Not Detect) Ur Amphetamines Screen Not Detected (Not Detect) U Benzodiazepines Scrn POSITIVE H (Not Detect) Urine Cocaine Screen Not Detected (Not Detect) U Marijuana (THC) Screen Not Detected (Not Detect) Ethyl Alcohol mg/dL COVID-19 ([facility]) (Negative) COVID-19 Clin Com <Roxanna Byrd NP - Last Filed: 11/25/21 09:20> Discharge Plan Discharge Clinical Impression: COVID-19 <Maurilio Lewis MD - Last Filed: 11/24/21 18:43> Patient Disposition: Still a Patient <Maurilio Lewis MD - Last Filed: 11/24/21 18:43> Prescriptions: No [facility] rosuvastatin 10 mg tablet 10 mg PO DAILY 90 Days Qty: 90 3RF ezetimibe [Zetia] 10 mg tablet 10 mg PO DAILY 90 Days Qty: 90 1RF glipizide 10 mg tablet 2 tab PO BID 0RF pioglitazone 45 mg tablet 1 tab PO QAM 0RF morphine 30 mg tablet extended release 1 tab PO TID 0RF omeprazole 40 mg capsule,delayed release(DR/EC) 1 cap PO DAILY@0630 0RF baclofen 20 mg tablet 1 tab PO TID PRN (Reason: muscle spasm) 0RF oxycodone-acetaminophen 5-325 mg tablet 1 tab PO BID PRN (Reason: pain) 0RF metoprolol succinate 25 mg tablet extended release 24 hr 1 tab PO QAM 0RF diazepam 5 mg tablet 1 tab PO BEDTIME PRN (Reason: muscle spasm) 0RF Fish Oil 340-1,000 mg capsule 2 cap PO QAM 0RF Lantus Solostar U-100 Insulin 100 unit/mL (3 mL) insulin pen 24 unit subcut DAILY 0RF Biktarvy 50-200-25 mg tablet 1 tab PO BEDTIME 0RF lidocaine 5 % Adhesive Patch,Medicated 1 patch TOPICAL DAILY 0RF Rx Instructions: leave on most painful area for up to 12 hrs aspirin [Adult Aspirin Regimen] 81 mg tablet,delayed release (DR/EC) 81 mg PO BEDTIME 0RF <Maurilio Lewis MD - Last Filed: 11/24/21 18:43>
[2021-11-24 19:08] LABS: Basophils Percent Auto 0.2 % (0-2); Hemoglobin 13.1 g/dl (14.0-18.0); Imm Gran Abs Auto 0.01 X10*3/uL (0.00-0.03); Imm Gran Pct Auto 0.2 % (0.0-0.4); Lymphocytes Absolute Auto 1.5 X10*3/uL (1.2-4.9); MANUAL DIFF FLAG SCAN; PLT CLUMP 1; SCAN SMEAR FLAG 1
[2021-11-24 19:10] LABS: Eosinophils Absolute Auto 0.1 X10*3/uL (0.0-0.4); Eosinophils Percent Auto 2.3 % (0-4); Hematocrit 40.5 % (42.0-52.0); Lymphocytes Percent Auto 34.7 % (20-40); Mean Corpuscular HGB Conc 32.3 g/dl (31.0-36.0); Mean Corpuscular Hemoglobin 30.2 pg (27.0-33.0); Mean Corpuscular Volume 93.3 fL (80.0-98.0); Mean Platelet Volume 10.8 fL (9.4-12.4); Monocytes Absolute Auto 0.5 X10*3/uL (0.1-1.2); Neutrophils Absolute Auto 2.2 x10*3/uL (2.0-8.3); Neutrophils Percent Auto 50.6 % (45-73); Red Blood Count 4.34 X10*6/uL (4.60-5.80); Red Cell Distribution Width 13.3 % (11.0-16.0)
[2021-11-24 19:14] LABS: COVID-19 Test Positive (Negative)
[2021-11-24] MEDS: HYDROmorphone HCl 1 MG/ML SYRINGE IVPUSH (19:14)
[2021-11-24] MEDS: 0.9 % Sodium Chloride 1,000 ML 999 ML IV (19:14)
[2021-11-24 19:15] LABS: INTERNATIONAL NORM RATIO 1.1 (0.9-1.1); Prothrombin Time 12.7 SEC (9.9-13.0)
[2021-11-24 19:17] LABS: Ammonia 17 umol/L (13-55)
[2021-11-24 19:21] LABS: Lactic Acid 1.2 mmol/L (0.5-2.0)
[2021-11-24 19:22] LABS: Ethanol < 10 mg/dL
[2021-11-24 19:26] LABS: Platelet Count 117 X10*3/uL (160-400); White Blood Count 4.4 X10*3/uL (4.8-10.8)
[2021-11-24 19:27] LABS: SLIDE REVIEW VERIFIED
[2021-11-24 19:36] LABS: Troponin-I High Sensitivity < 3.5 ng/L (<3.5-35.0)
[2021-11-24 19:49] LABS: Alanine Aminotransferase 44 U/L (0-40); Alkaline Phosphatase 86 U/L (39-117); Anion Gap 10 (12-20); Aspartate Amino Transferase 32 U/L (5-37); Bilirubin Total 0.6 mg/dL (0.0-1.0); Blood Urea Nitrogen 25 mg/dL (9-16); Calcium 9.4 mg/dL (8.4-10.2); Carbon Dioxide 32 mmol/L (22-29); Chloride 103 mmol/L (96-108); Creatinine Clr Calc Pharmacy 41.9; Estimated Glomerular Filt Rate 49; Glucose Random 129 mg/dL (60-115); Potassium 4.6 mmol/L (3.3-5.1); Sodium 140 mmol/L (135-145); Total Protein 7.2 g/dL (6.5-8.0)
--- NOTE | 2021-11-24 22:01 | PHA.MEDREC ---
med rec complete, verified by patients pharmacy fill history Pharmacy Consult ? Medication Reconciliation Pharmacy has completed the medication reconciliation.
[2021-11-24 23:07] VITALS: BP 132/64; PULSE 65; RESP 18; TEMP 37.1; O2SAT 100
[2021-11-25] VITALS (7 sets, daily range): BP systolic 117–142; BP diastolic 64–99; PULSE 56–69; RESP 16–18; TEMP 36.6–37.1; O2SAT 98–100
[2021-11-25 01:49] LABS: Appearance Urine CLEAR; Color Urine YELLOW; Glucose Urine UA >=1000 MG/DL (NEG); Leukocyte Esterase Urine NEG (NEG); Nitrite Urine NEG (NEG); PH 7.5 (5.0-8.0); Specific Gravity - Urine 1.025 (1.005-1.025); Urine Blood NEG (NEG); Urine Ketones NEG (NEG); Urine Protein NEG (NEG-TRACE)
[2021-11-25 01:55] LABS: Calcium Phosphate Crystals Ur 1+ /LPF; RBC Urine 0 /HPF (0); WBC Urine 0-2 /HPF (0-4)
[2021-11-25 02:08] LABS: Amphetamine Screen Urine Not Detected (Not Detect); Barbiturates, Urine Not Detected (Not Detect); Benzodiazepines Screen Urine POSITIVE (Not Detect); Cannabinoid Screen Urine Not Detected (Not Detect); Cocaine Screen Urine Not Detected (Not Detect); Fentanyl, urine Not Detected (Not Detect); Phencyclidine Screen Urine Not Detected (Not Detect)
[2021-11-25 02:10] LABS: Opiate Screen Urine POSITIVE (Not Detect)
[2021-11-25] MEDS: Omeprazole 40 MG CAPSULE.DR PO (07:16)
[2021-11-25] MEDS: oxyCODONE HCl Immed Release 5 MG TABLET PO (07:28)
[2021-11-25 07:33] LABS: Glucose, Whole Blood 122 mg/dL (60-115)
--- NOTE | 2021-11-25 09:40 | MHC.CM.ED ---
Addendum entered by Fina Orellana 11/25/21 11:03: No Covid bed offers available at this time. Referral broadcasted within 50 miles. Original Note: Received case management consult. Patient came to ER d/t AMS. Patient found to be Covid positive. Physical therapy eval completed. Short term rehab is recommended. Due to being Covid positive, anticipate placement may be difficult to find. Referral broadcasted to all facilities in [place] within 20 miles of patient's residence to all facilities that state they can accept Covid patients. Continue to monitor for d/c needs.
[2021-11-25] MEDS: Ezetimibe 10 MG TABLET PO (10:35)
[2021-11-25] MEDS: Atorvastatin Calcium 20 MG TABLET PO (10:35)
[2021-11-25] MEDS: Morphine Sulfate ER 30 MG TABLET.ER PO ×3 (10:35→22:44)
[2021-11-25] MEDS: Lidocaine 4 % Patch ADH..PATCH 1 PATCH TRANSDERMA (10:35)
[2021-11-25] MEDS: Metoprolol Succinate ER 25 MG TAB.ER.24H PO (10:36)
[2021-11-25] MEDS: Insulin Glargine,Hum.rec.anlog 100 UNIT/ML 10 ML VIAL 24 UNIT SUBCUT (10:36)
[2021-11-25] MEDS: glipiZIDE 10 MG TABLET 20 MG PO ×2 (10:43→22:44)
[2021-11-25] MEDS: Pioglitazone HCL 45 MG TABLET PO (10:43)
--- NOTE | 2021-11-25 14:17 | PC.NURSE ---
pt a&ox3, vss, resting comfortably, denies any pain, will continue to monitor.
--- NOTE | 2021-11-25 18:30 | PC.NURSE ---
pt a&ox3, resting comfortably, will continue to monitor.
[2021-11-25 21:33] LABS: Glucose, Whole Blood 163 mg/dL (60-115)
--- NOTE | 2021-11-25 21:35 | PC.NURSE ---
pt a&ox3, sleeping comfortably, POC - 163, vss, reports pain at a 5/10, but this is his normal baseline, will continue to monitor.
--- NOTE | 2021-11-25 22:20 | PC.NURSE ---
medications missing with pyxis, pharmacy notified.
[2021-11-25] MEDS: Aspirin Enteric Coated 81 MG TABLET.DR PO (22:44)
[2021-11-25] MEDS: Bictegrav/Emtricit/Tenofov Ala TABLET 1 TAB PO (22:45)
--- NOTE | 2021-11-25 22:50 | PC.NURSE ---
pt medicated per provider order.
--- NOTE | 2021-11-25 23:19 | PC.NURSE ---
report called to icu, spoke with pharmacy about vanco- will give dosage later than timed due to the patient given it late this afternoon- icu aware
[2021-11-26] VITALS (8 sets, daily range): BP systolic 127–156; BP diastolic 67–85; PULSE 56–110; RESP 14–18; TEMP 36.3–36.7; O2SAT 98–99
[2021-11-26] MEDS: oxyCODONE HCl ER 10 MG TAB.ER.12H PO ×2 (01:52→08:03)
--- NOTE | 2021-11-26 01:53 | PC.NURSE ---
Pt alert, oriented to person and place only with reports of 10/10 bilateral hip/leg pain R>L; denying the presence of muscle spasms at this time. Pt medicated per DEC. Pt denied knowledge of plan, RN reviewed plan with patient and he is agreeable. Call ol[facility]ares is within reach and RN will continue to monitor.
[2021-11-26] MEDS: oxyCODONE HCl Immed Release 5 MG TABLET PO (05:03)
[2021-11-26 07:56] LABS: Glucose, Whole Blood 196 mg/dL (60-115)
[2021-11-26] MEDS: Lidocaine 4 % Patch ADH..PATCH 1 PATCH TRANSDERMA (08:01)
[2021-11-26] MEDS: Morphine Sulfate ER 30 MG TABLET.ER PO ×3 (08:02→21:57)
[2021-11-26] MEDS: Insulin Glargine,Hum.rec.anlog 100 UNIT/ML 10 ML VIAL 24 UNIT SUBCUT (08:02)
[2021-11-26] MEDS: Atorvastatin Calcium 20 MG TABLET PO (08:03)
[2021-11-26] MEDS: Ezetimibe 10 MG TABLET PO (08:03)
[2021-11-26] MEDS: Omeprazole 40 MG CAPSULE.DR PO (08:03)
[2021-11-26] MEDS: Metoprolol Succinate ER 25 MG TAB.ER.24H PO (08:05)
--- NOTE | 2021-11-26 08:11 | PC.NURSE ---
PT EATING BKFST. AMB WITH WALKER IN ROOM. UP TO CHAIR. PAIN CONTROLLED AT THIS TIME
--- NOTE | 2021-11-26 08:41 | MHC.CM.ED ---
Addendum entered by Fina Orellana 11/26/21 13:17: Referral broadcasted to all facilities [facility] the [facility] to all facilities that has covid beds. Original Note: Patient remains in ER. Still attempting to find positive Covid bed. T/W spoke to patient's daughter/HCP, Ai via telephone at [phone]. Update given. Ai verbalized understanding. Continue to monitor for d/c needs.
[2021-11-26] MEDS: glipiZIDE 10 MG TABLET 20 MG PO ×2 (09:00→21:58)
[2021-11-26] MEDS: Pioglitazone HCL 45 MG TABLET PO (09:00)
--- NOTE | 2021-11-26 13:38 | MHC.CM.ED ---
Addendum entered by Fina Orellana 11/26/21 15:05: Still waiting for daughter to return call. No other bed offers have been made. Anticipated patient will leave for [place] via [facility] 11/27 at 9am. Per [facility], they can transfer patient to [place] or [place] once he is Covid recovered. [facility] booked. Med [facility] with chart. Viktoriya GUZMAN aware. Original Note: [facility] is able to offer a bed. T/W attempted to call patient's daughter, Ai via telephone at [phone]. Left message requesting return telephone call. Continue to monitor for d/c needs.
[2021-11-26] MEDS: Aspirin Enteric Coated 81 MG TABLET.DR PO (21:57)
[2021-11-26] MEDS: Bictegrav/Emtricit/Tenofov Ala TABLET 1 TAB PO (21:58)
[2021-11-27 00:18] VITALS: BP 142/80; PULSE 83; RESP 14; TEMP 36.6; O2SAT 99
--- NOTE | 2021-11-27 06:05 | PC.NURSE ---
PT found in room, out of bed, looking through his dufflebag. PT stated, I'm going home because I need to shave. This RN spoke with the PT and reminded him of the plan to go to rehab this morning. PT then stated that he was going to call his uncle to pick him up so he could go home and shave and then come back. PT was reminded that his daughter was coming back to the hospital to see him around 07:00. PT then agreed to wait to see his daughter before making any decisions about leaving to go home.
[2021-11-27 06:10] VITALS: BP 132/74; PULSE 92; RESP 12; TEMP 36.7; O2SAT 97
[2021-11-27] MEDS: Omeprazole 40 MG CAPSULE.DR PO (06:26)
[2021-11-27] MEDS: glipiZIDE 10 MG TABLET 20 MG PO (07:53)
[2021-11-27] MEDS: Insulin Glargine,Hum.rec.anlog 100 UNIT/ML 10 ML VIAL 24 UNIT SUBCUT (07:53)
[2021-11-27] MEDS: Morphine Sulfate ER 30 MG TABLET.ER PO (07:53)
[2021-11-27] MEDS: Metoprolol Succinate ER 25 MG TAB.ER.24H PO (07:53)
[2021-11-27] MEDS: Ezetimibe 10 MG TABLET PO (07:53)
[2021-11-27] MEDS: Atorvastatin Calcium 20 MG TABLET PO (07:53)
[2021-11-27] MEDS: Pioglitazone HCL 45 MG TABLET PO (07:54)
[2021-11-27] MEDS: Lidocaine 4 % Patch ADH..PATCH 1 PATCH TRANSDERMA (07:54)
--- NOTE | 2021-11-27 08:00 | PC.NURSE ---
report taken from marcela her pt here as case mgmt w pending bed placement today approx 0900 am. going to [facility] [place] per notes, pt is nad on first contact, a&ox2, unsure of date. pt educated about facility he is going to, educated about planned 0900 departure. pt has taken morning meds, ate all of breakfast. offers no new complaints this morning. iv removed. pt ambulating w walker in room w slow steady gait. covid precautions in place d/t covid+ test.
--- NOTE | 2021-11-27 08:23 | MHC.CM.ED ---
Received telephone call from daughter, Ai. Ai flew to [facility] from [place] last night. She is requesting to see patient. Hospital policy is still no visitors for Covid patients. Per Siobhan, ER Nurse Building Operator, daughter can visit. Ai will go to her fathers house to get clothing for rehab and bring it to the ER. Transport changed to 930. Continue to monitor for d/c needs.
== END 2021-11-27 09:58 | disposition skilled nursing facility (03) ==
PROVIDERS: Emergency Provider Emergency Medicine; PCP Family Medicine
DX: U07.1 COVID-19 (principal); M87.9 Osteonecrosis, unspecified; M54.50 Low back pain, unspecified; B20 Human immunodeficiency virus [HIV] disease; I10 Essential (primary) hypertension; E78.5 Hyperlipidemia, unspecified; Z79.02 Long term (current) use of antithrombotics/antiplatelets; Z79.891 Long term (current) use of opiate analgesic; Z79.82 Long term (current) use of aspirin; Z79.899 Other long term (current) drug therapy
CPT/HCPCS: 71045; 73522; 80053; 80307; 81001; 82077; 82140; 82947; 83605; 84484; 85025; 85610; 87040; 87635; 93005; 96361; 96374; 97162; 99285; J1170

== ENCOUNTER 2021-12-22 10:22 | Outpatient (REF) | payer MEDICARE, OTHER, SELFPAY ==
--- NOTE | ~2021-12-22 | MR_ITS ---
EXAMINATION: MR CERVICAL SPINE WITHOUT CONTRAST CLINICAL INFORMATION: Fall. Neck pain. History of cervical decompression. COMPARISON: Cervical spine MRI 02/20/2016. TECHNIQUE: MRI of the cervical spine was performed using routine sequences without contrast. FINDINGS: The cervical vertebral bodies maintain normal heights. There is accentuation of the normal cervical lordosis. There is mild retrolisthesis of C5 on C6 and mild anterolisthesis of C6 on C7. Disc height loss is noted at C5-C6 and C6-C7. No bone marrow edema is seen. Myelomalacia is seen within the cervical cord from the C4-C5 disc level down to the C7 vertebral body level. Cord volume loss is most notable at the C6 level. The overall degree of volume loss appears mildly progressed since 2014 but similar in extent. No cord signal abnormality is seen elsewhere in the cervical or upper thoracic spine. The imaged portions of the intracranial contents appear normal. SPINAL LEVELS: C2-C3: No posterior disc abnormality. No spinal canal or neural foraminal stenosis. C3-C4: Mild disc osteophyte complex. Facet arthropathy. No spinal canal or neural foraminal stenosis. C4-C5: Disc osteophyte complex with uncovertebral hypertrophy and facet arthropathy resulting in mild spinal canal stenosis and severe bilateral neural foraminal stenosis. Findings have progressed. C5-C6: Posterior decompression. No spinal canal stenosis. Neural foramina are difficult to evaluate but appear grossly patent. C6-C7: Posterior decompression. No spinal canal stenosis. Mild narrowing of bilateral neural foramina. C7-T1: No posterior disc abnormality. No spinal canal or neural foraminal stenosis. MR/MR cervical spine wo con IMPRESSION: Redemonstration of significant myelomalacia in the cervical cord from the C4-C5 disc level down to the C7 level. The degree of volume loss appears progressed since 2014. No new areas of cord signal abnormality have developed. No significant narrowing of the spinal canal. Neural foraminal stenosis appears severe bilaterally at C4-C5.
--- NOTE | ~2021-12-22 | MR_ITS ---
EXAMINATION: MR BRAIN WITHOUT CONTRAST CLINICAL INFORMATION: Abnormal gait with persistent dizziness. COMPARISON: CT from 10/05/2021 and MRI dated 11/11/2011. TECHNIQUE: Multiplanar, multisequence imaging of the brain was performed without contrast. FINDINGS: No diffusion abnormalities are identified to suggest an acute infarct. The ventricles are normal in size. No mass effect or midline shift is seen. There are stable minimal subcentimeter foci of T2 hyperintense signal change in the biparietal white matter. No extra-axial fluid collections are seen. The brainstem and cerebellum are normal. The gradient refocused acquisition is normal. The craniovertebral junction, marrow signal, and midline structures are normal. The major intracranial flow voids at the level of the [place] are preserved. The dural venous sinus flow voids are maintained. The mastoid air cells and paranasal sinuses are well aerated. MR/MR head/brain wo con IMPRESSION: No acute intracranial process. Minimal nonspecific white matter signal changes which are otherwise stable.
== END 2021-12-22 10:23 | disposition home or self-care (01) ==
LOC: HO.MRI 10:22
PROVIDERS: Visit Provider Family Medicine
DX: G89.4 Chronic pain syndrome (principal); M54.2 Cervicalgia; R26.89 Other abnormalities of gait and mobility; Z91.81 History of falling
CPT/HCPCS: 70551; 72141

== ENCOUNTER → 2022-07-23 12:27 | Outpatient (BNVA) | payer MEDICARE, OTHER, SELFPAY | PROVIDERS: PCP Family Medicine; Referring Provider Family Medicine; Visit Provider Internal Medicine Cardiovascular Disease | DX: I25.10 Atherosclerotic heart disease of native coronary artery without angina pectoris (principal); I45.2 Bifascicular block; Z79.82 Long term (current) use of aspirin; Z79.899 Other long term (current) drug therapy; I25.2 Old myocardial infarction | CPT/HCPCS: 93005; 99212 ==

== ENCOUNTER 2022-11-09 11:12 | Outpatient (REF) | payer MEDICARE, MEDICAID, SELFPAY ==
--- NOTE | ~2022-11-09 | XR_ITS ---
EXAMINATION: XR SHOULDER, RIGHT CLINICAL INFORMATION: Chronic pain. COMPARISON: Radiograph of the right shoulder 02/16/2014. TECHNIQUE: AP external rotation, Grashey, scapular Y, and axillary views of the right shoulder. FINDINGS: No acute fractures or malalignment. Stable mild cortical deformity with depression along the superolateral humeral head raising the possibility of an old Hill-Sachs lesion. Joint space narrowing with bony productive changes on the right acromioclavicular joint suggesting mild to moderate osteoarthritis, progressed since 2013. No abnormal soft tissue calcifications. Included right-sided ribs and right lung are within normal limits. XR/XR shoulder RT min 2V IMPRESSION: 1. No acute fractures or malalignment. 2. 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 3. Chronic Hill-Sachs lesion in the right humeral head.
== END 2022-11-09 11:13 | disposition home or self-care (01) ==
LOC: HO.XRAY 11:12
PROVIDERS: PCP Family Medicine; Visit Provider Family Medicine
DX: M25.511 Pain in right shoulder (principal); G89.29 Other chronic pain
CPT/HCPCS: 73030

== ENCOUNTER 2023-05-17 09:18 | Outpatient (REF) | payer MEDICARE, MEDICAID, SELFPAY ==
[2023-05-17 11:39] LABS: MANUAL DIFF FLAG NO
[2023-05-17 12:02] LABS: Basophils Percent Auto 0.6 % (0-2); Eosinophils Absolute Auto 0.1 X10*3/uL (0.0-0.4); Hematocrit 46.5 % (42.0-52.0); Hemoglobin 14.5 g/dl (14.0-18.0); Imm Gran Abs Auto 0.02 X10*3/uL (0.00-0.03); Imm Gran Pct Auto 0.3 % (0.0-0.4); Lymphocytes Absolute Auto 1.4 X10*3/uL (1.2-4.9); Lymphocytes Percent Auto 21.9 % (20-40); Mean Corpuscular HGB Conc 31.2 g/dl (31.0-36.0); Mean Corpuscular Volume 89.8 fL (80.0-98.0); Mean Platelet Volume 12.3 fL (9.4-12.4); Monocytes Absolute Auto 0.4 X10*3/uL (0.1-1.2); Monocytes Percent Auto 6.1 % (2-11); Neutrophils Absolute Auto 4.4 x10*3/uL (2.0-8.3); Neutrophils Percent Auto 69.1 % (45-73); Platelet Count 163 X10*3/uL (160-400); Red Blood Count 5.18 X10*6/uL (4.60-5.80); Red Cell Distribution Width 14.2 % (11.0-16.0); White Blood Count 6.4 X10*3/uL (4.8-10.8)
[2023-05-17 12:13] LABS: Alanine Aminotransferase 32 U/L (0-40); Albumin Level 4.3 g/dL (3.5-5.0); Alkaline Phosphatase 76 U/L (39-117); Anion Gap 16 (12-20); Aspartate Amino Transferase 23 U/L (5-37); Bilirubin Direct 0.2 mg/dL (0.0-0.5); Bilirubin Total 0.4 mg/dL (0.0-1.0); Blood Urea Nitrogen 17 mg/dL (9-16); Calcium 10.1 mg/dL (8.4-10.2); Carbon Dioxide 24 mmol/L (22-29); Chloride 104 mmol/L (96-108); Cholesterol 123 mg/dL; Estimated Glomerular Filt Rate 42; Glucose Random 338 mg/dL (60-115); HDL Cholesterol 46 mg/dL; LDL Cholesterol Calculated 50 mg/dl; Potassium 4.6 mmol/L (3.3-5.1); Sodium 139 mmol/L (135-145); Triglycerides 135 mg/dL
[2023-05-17 12:33] LABS: Free T4 (Free Thyroxine) 0.97 ng/dL (0.71-1.85); Thyroid Stimulating Hormone 2.95 uIU/mL (0.32-4.0); Vitamin D 25-OH Total 78.2 ng/mL (>30)
[2023-05-17 13:09] LABS: Creatinine Urine 79.75 mg/dL; Microalbum/Creatinine Ratio Ur 26.3 ug/mg cr
[2023-05-17 14:04] LABS: CT PCR NOT DETECTED (Not Detect.); NG PCR NOT DETECTED (Not Detect.)
[2023-05-17 16:17] LABS: Estimated Average Glucose 237 mg/dL; Hemoglobin A1c % 9.9 %
[2023-05-18 04:27] LABS: ~HepC Num1 0.07 S/CO (0.00-0.79); ~Hepatitis C Antibody Nonreactive (Nonreactive)
[2023-05-18 14:29] LABS: Absolute CD4 Count 507 cells/uL (490-1740); Absolute CD8 Count 368 cells/uL (180-1170); Absolute Lymphocytes 1438 cells/uL (850-3900); CD4 CD8 Ratio 1.38 (0.86-5.00); Percent CD4 Cells 35 % (30-61); Percent CD8 Cells 26 % (12-42)
[2023-05-18 15:28] LABS: HIV RNA PCR Qn Copies 96 copies/mL (NOT DETECTED); HIV RNA PCR Qn Log Copies 1.98 (NOT DETECTED)
[2023-05-19 04:23] LABS: Syphilis Screen Nonreactive (Nonreactive)
[2023-05-19 23:53] LABS: TS Negative Control Passed; TS Panel A 1; TS Panel B 9; TS Positive Control Passed; TSpotTB Positive (Negative)
== END 2023-05-17 09:19 | disposition home or self-care (01) ==
LOC: HO.HHCL 09:18
PROVIDERS: Visit Provider Family Medicine
DX: E11.42 Type 2 diabetes mellitus with diabetic polyneuropathy (principal); B20 Human immunodeficiency virus [HIV] disease; E11.22 Type 2 diabetes mellitus with diabetic chronic kidney disease; N18.30 Chronic kidney disease, stage 3 unspecified; Z79.4 Long term (current) use of insulin
CPT/HCPCS: 0353U; 80048; 80061; 80076; 82043; 82306; 83036; 84439; 84443; 85025; 86360; 86481; 86780; 86803; 87536

== ENCOUNTER 2023-05-21 12:32 | Outpatient (REF) | payer MEDICARE, MEDICAID, SELFPAY ==
--- NOTE | ~2023-05-21 | XR_ITS ---
EXAMINATION: XR CHEST CLINICAL INFORMATION: Positive TB test. COMPARISON: 11/24/2021 chest radiograph. TECHNIQUE: 2 views of the chest were obtained. FINDINGS: No significant abnormality is noted involving the heart, lungs, mediastinum, bony thorax or soft tissues. XR/XR chest 2V IMPRESSION: No acute cardiopulmonary process. No evidence for active tuberculosis.
== END 2023-05-21 12:33 | disposition home or self-care (01) ==
LOC: HO.HHCX 12:32
PROVIDERS: Visit Provider Family Medicine
DX: R76.11 Nonspecific reaction to tuberculin skin test without active tuberculosis (principal)
CPT/HCPCS: 71046

== ENCOUNTER 2023-06-10 09:46 | Outpatient (REF) | payer MEDICARE, MEDICAID, SELFPAY ==
--- NOTE | ~2023-06-10 | US_ITS ---
EXAMINATION: Noninvasive assessment of the arteries of both lower extremities to include a PVR exam limited (1-2 levels) and ANDERSON, bilateral. ? Doug Grissom M.D. CLINICAL INFORMATION: Bilateral leg pain COMPARISON: None TECHNIQUE: The ankle/brachial indices of the distal posterior tibial and the dorsalis pedis arteries were obtained of the lower extremity arterial system bilaterally; along with pressures and pulse volume recordings at the ankle and duplex Doppler techniques of the common femoral, proximal femoral and proximal profunda arteries. The study was performed at rest. ? FINDINGS AT REST:? RIGHT LE. THE RIGHT ANKLE-BRACHIAL INDEX IS: 1.16 (higher of the DP/PT) >0.97-1.25 = normal - no significant arterial disease 0.75-0.96 = mild peripheral arterial disease 0.50-0.74 = moderate peripheral arterial disease <0.50 = severe peripheral arterial disease <0.30 = critical arterial disease 2. SEGMENTAL PRESSURES: Ankle: PT 147 DP 149 3. PVR WAVEFORMS: Ankle: Within normal limits 4. DIRECT DUPLEX: There is minimal atherosclerotic plaque in the right lower extremity. Normal velocities and normal diastolic flow reversal is present. LEFT LE. THE LEFT ANKLE-BRACHIAL INDEX IS: 1.17 (higher of the DP/PT) >0.97-1.25 = normal - no significant arterial disease 0.75-0.96 = mild peripheral arterial disease 0.50-0.74 = moderate peripheral arterial disease <0.50 = severe peripheral arterial disease <0.30 = critical arterial disease 2. SEGMENTAL PRESSURES: Ankle: PT 143 DP 150 3. PVR WAVEFORMS: Ankle: Within normal limits 4. DIRECT DUPLEX: There is minimal atherosclerotic plaque in the right lower extremity. Normal velocities and normal diastolic flow reversal is present. ? US/US ANDERSON complete IMPRESSION: No evidence of a hemodynamically significant stenosis in the bilateral lower extremities.
--- NOTE | ~2023-06-10 | US_ITS ---
EXAMINATION: Noninvasive assessment of the arteries of both lower extremities to include a PVR exam limited (1-2 levels) and ANDERSON, bilateral. ? Doug Grissom M.D. CLINICAL INFORMATION: Bilateral leg pain COMPARISON: None TECHNIQUE: The ankle/brachial indices of the distal posterior tibial and the dorsalis pedis arteries were obtained of the lower extremity arterial system bilaterally; along with pressures and pulse volume recordings at the ankle and duplex Doppler techniques of the common femoral, proximal femoral and proximal profunda arteries. The study was performed at rest. ? FINDINGS AT REST:? RIGHT LE. THE RIGHT ANKLE-BRACHIAL INDEX IS: 1.16 (higher of the DP/PT) >0.97-1.25 = normal - no significant arterial disease 0.75-0.96 = mild peripheral arterial disease 0.50-0.74 = moderate peripheral arterial disease <0.50 = severe peripheral arterial disease <0.30 = critical arterial disease 2. SEGMENTAL PRESSURES: Ankle: PT 147 DP 149 3. PVR WAVEFORMS: Ankle: Within normal limits 4. DIRECT DUPLEX: There is minimal atherosclerotic plaque in the right lower extremity. Normal velocities and normal diastolic flow reversal is present. LEFT LE. THE LEFT ANKLE-BRACHIAL INDEX IS: 1.17 (higher of the DP/PT) >0.97-1.25 = normal - no significant arterial disease 0.75-0.96 = mild peripheral arterial disease 0.50-0.74 = moderate peripheral arterial disease <0.50 = severe peripheral arterial disease <0.30 = critical arterial disease 2. SEGMENTAL PRESSURES: Ankle: PT 143 DP 150 3. PVR WAVEFORMS: Ankle: Within normal limits 4. DIRECT DUPLEX: There is minimal atherosclerotic plaque in the right lower extremity. Normal velocities and normal diastolic flow reversal is present. ? US/US arterial duplex LE BI IMPRESSION: No evidence of a hemodynamically significant stenosis in the bilateral lower extremities.
== END 2023-06-10 09:47 | disposition home or self-care (01) ==
LOC: HO.US 09:46
PROVIDERS: PCP Family Medicine; Visit Provider Family Medicine
DX: M79.662 Pain in left lower leg (principal); M79.661 Pain in right lower leg; G89.4 Chronic pain syndrome
CPT/HCPCS: 93923; 93925

== ENCOUNTER 2023-06-14 16:12 | Outpatient (REF) | payer MEDICARE, MEDICAID, SELFPAY | END 2023-06-14 16:13 | disposition home or self-care (01) | LOC: HO.LNP 16:12 | PROVIDERS: Visit Provider Family Medicine | DX: G89.4 Chronic pain syndrome (principal); M54.2 Cervicalgia; G89.29 Other chronic pain; G95.9 Disease of spinal cord, unspecified; M54.50 Low back pain, unspecified; D72.810 Lymphocytopenia | CPT/HCPCS: 80307 ==

== ENCOUNTER 2023-09-15 10:43 | Outpatient (REF) | payer MEDICARE, MEDICAID, SELFPAY ==
--- NOTE | ~2023-09-15 | XR_ITS ---
EXAMINATION: XR CHEST CLINICAL INFORMATION: Intermittent fevers COMPARISON: 05/21/2023. TECHNIQUE: 2 views of the chest were obtained. FINDINGS: No airspace consolidation or pneumothorax. The hilar regions appear to be stable. No evidence for vascular congestion. There is minimal blunting in a posterior sulcus on the lateral view suggesting a small effusion. Small sclerosis associated with the medial left humeral head. AVN is a consideration. No thoracic compression fractures seen. XR/XR chest 2V IMPRESSION: No dominant consolidations. Minimal posterior sulcus effusion. Small sclerosis of the medial left humeral head, with AVN a consideration. Left humerus or shoulder x-ray series when feasible may be helpful toward further clarification.
[2023-09-15 11:20] LABS: MANUAL DIFF FLAG NO
[2023-09-15 11:35] LABS: Basophils Percent Auto 0.4 % (0-2); Eosinophils Absolute Auto 0.3 X10*3/uL (0.0-0.4); Eosinophils Percent Auto 3.5 % (0-4); Hemoglobin 13.9 g/dl (14.0-18.0); Imm Gran Abs Auto 0.03 X10*3/uL (0.00-0.03); Imm Gran Pct Auto 0.3 % (0.0-0.4); Lymphocytes Absolute Auto 1.7 X10*3/uL (1.2-4.9); Lymphocytes Percent Auto 17.9 % (20-40); Mean Corpuscular HGB Conc 31.6 g/dl (31.0-36.0); Mean Corpuscular Hemoglobin 28.7 pg (27.0-33.0); Mean Corpuscular Volume 90.7 fL (80.0-98.0); Mean Platelet Volume 11.4 fL (9.4-12.4); Monocytes Absolute Auto 0.6 X10*3/uL (0.1-1.2); Monocytes Percent Auto 6.7 % (2-11); Neutrophils Absolute Auto 6.6 x10*3/uL (2.0-8.3); Neutrophils Percent Auto 71.2 % (45-73); Platelet Count 159 X10*3/uL (160-400); Red Blood Count 4.85 X10*6/uL (4.60-5.80); Red Cell Distribution Width 14.9 % (11.0-16.0); White Blood Count 9.3 X10*3/uL (4.8-10.8)
[2023-09-15 11:56] LABS: Estimated Average Glucose 192 mg/dL; Hemoglobin A1c % 8.3 % (<6.0)
[2023-09-15 12:26] LABS: Alanine Aminotransferase 28 U/L (0-40); Albumin Level 4.3 g/dL (3.5-5.0); Alkaline Phosphatase 72 U/L (39-117); Anion Gap 13 (12-20); Aspartate Amino Transferase 25 U/L (5-37); Bilirubin Direct 0.1 mg/dL (0.0-0.5); Bilirubin Total 0.4 mg/dL (0.0-1.0); Blood Urea Nitrogen 23 mg/dL (9-16); Calcium 9.9 mg/dL (8.4-10.2); Carbon Dioxide 28 mmol/L (22-29); Chloride 103 mmol/L (96-108); Cholesterol 105 mg/dL (<200); Estimated Glomerular Filt Rate 56; Glucose Random 212 mg/dL (60-115); HDL Cholesterol 39 mg/dL (>40); LDL Cholesterol Calculated 30 mg/dL (<100); Potassium 4.9 mmol/L (3.3-5.1); Sodium 139 mmol/L (135-145); Triglycerides 181 mg/dL (<150)
[2023-09-15 12:34] LABS: Free T4 (Free Thyroxine) 1.02 ng/dL (0.71-1.85); Thyroid Stimulating Hormone 1.24 uIU/mL (0.32-4.0); Vitamin D 25-OH Total 60.9 ng/mL (>30)
== END 2023-09-15 10:44 | disposition home or self-care (01) ==
LOC: HO.HHCL 10:43
PROVIDERS: Visit Provider Family Medicine
DX: E11.42 Type 2 diabetes mellitus with diabetic polyneuropathy (principal); R50.9 Fever, unspecified; E11.22 Type 2 diabetes mellitus with diabetic chronic kidney disease; N18.9 Chronic kidney disease, unspecified; Z79.4 Long term (current) use of insulin
CPT/HCPCS: 36415; 71046; 80048; 80061; 80076; 82306; 83036; 84439; 84443; 85025; 87086

== ENCOUNTER 2023-10-15 11:43 | Outpatient (REF) | payer OTHER, MEDICAID, SELFPAY ==
[2023-10-19 07:14] LABS: Absolute CD3 Count 1277 cells/uL (840-3060); Absolute CD4 Count 625 cells/uL (490-1740); Absolute CD8 Count 632 cells/uL (180-1170); Absolute Lymphocytes 2360 cells/uL (850-3900); CD4 CD8 Ratio 0.99 (0.86-5.00); Percent CD3 Cells 54 % (57-85); Percent CD4 Cells 26 % (30-61); Percent CD8 Cells 27 % (12-42)
[2023-10-19 08:44] LABS: HIV RNA PCR Qn Copies NOT DETECTED copies/mL (NOT DETECTED); HIV RNA PCR Qn Log Copies NOT DETECTED (NOT DETECTED)
== END 2023-10-15 11:44 | disposition home or self-care (01) ==
LOC: HO.HHCL 11:43
PROVIDERS: Visit Provider Internal Medicine
DX: B20 Human immunodeficiency virus [HIV] disease (principal)
CPT/HCPCS: 36415; 86359; 86360; 87536

== ENCOUNTER 2023-11-12 11:16 | Outpatient (REF) | payer OTHER, SELFPAY ==
[2023-11-15 09:04] LABS: Absolute CD3 Count 986 cells/uL (840-3060); Absolute CD4 Count 544 cells/uL (490-1740); Absolute CD8 Count 437 cells/uL (180-1170); Absolute Lymphocytes 1628 cells/uL (850-3900); CD4 CD8 Ratio 1.24 (0.86-5.00); Percent CD3 Cells 61 % (57-85); Percent CD4 Cells 33 % (30-61); Percent CD8 Cells 27 % (12-42)
[2023-11-16 12:43] LABS: HIV RNA PCR Qn Copies 40 copies/mL (NOT DETECTED)
== END 2023-11-12 11:17 | disposition home or self-care (01) ==
LOC: HO.HHCL 11:16
PROVIDERS: Visit Provider Internal Medicine
DX: B20 Human immunodeficiency virus [HIV] disease (principal)
CPT/HCPCS: 36415; 86359; 86360; 87536

== ENCOUNTER 2024-01-06 13:26 | Outpatient (AMB) | payer OTHER, SELFPAY ==
[2024-01-06 13:33] VITALS: BP 124/80; PULSE 98; BMI 25.0
--- NOTE | 2024-01-06 13:33 | A.OFFVIS_ITS ---
Intake Vital Signs 01/06/24 13:33 Height 5 ft 4 in Weight 145 lb 8.081 oz BMI 25.0 BP 124/80 Blood Pressure Location Lt brachial Position Sitting Pulse 98 Intake Visit Reasons: 1 YR follow up-with EKG Intake Note: 1 year follow-up with ekg hearts feeling good Gas Main And Line Fitter Required: No Senior Clinical Research Scientist: Senior Clinical Research Scientist Present Accompanied by: Spouse Allergies amoxicillin [Amoxicillin] Allergy (Mild, Verified 11/24/21 15:21) RASH Penicillins Allergy (Mild, Verified 11/24/21 15:21) RASH sulfamethoxazole [From BACTRIM] Allergy (Unknown, Verified 11/24/21 15:21) UNKNOWN trimethoprim [From BACTRIM] Allergy (Unknown, Verified 11/24/21 15:21) UNKNOWN atorvastatin [Lipitor] Adverse Reaction (Unknown, Verified 11/24/21 15:21) unk Medication List - Last Reconciled 01/06/24 by Seymour Gambino MD aspirin (Adult Aspirin Regimen) 81 mg PO BEDTIME vebqxnjyq-gooiyrxs-qxjvteh ala 50-200-25 mg (Biktarvy) 1 tab PO BEDTIME diazepam (Valium) 5 mg PO BEDTIME PRN ezetimibe (Zetia) 10 mg PO DAILY 90 days gabapentin 300 mg PO TID glipizide 20 mg PO BID metoprolol succinate ER 50 mg PO DAILY morphine ER 1 tab PO TID morphine ER (MS Contin) 30 mg PO Q8H omega-3 fatty acids-fish oil 340-1,000 mg (Fish Oil) 2 caps PO QAM omeprazole 40 mg PO DAILY@0630 oxycodone 5 mg PO BID PRN oxycodone ER (OxyContin) 10 mg PO QID PRN oxycodone-acetaminophen 5-325 mg 1 tab PO BID PRN pioglitazone 45 mg PO QAM HPI HPI Comments History of Present Illness Details Ventura comes for follow-up after recent prolonged hospitalization [facility] with sudden spasticity in both his lower extremities and inability to walk. . During the workup he was noted to have intracranial aneurysm for which she then underwent stenting. However this was determined not to be the cause for his symptoms. 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 He has had issues with pain. However since then he has been having episodes of orthostatic syncope. He says whenever he gets up suddenly from supine position he would pass out. The who is present says he also passes out when he is sitting for prolonged period of time. He has been trying to push fluid and drinks up to 48 oz. patient is taking all his medications. He has not had any cardiac symptoms. Only recently he has been able to walk again, prior to that he was very weak and was using a walker to walk. Now he came in using a cane to walk. [facility] Medical History HIV (human immunodeficiency virus infection) COVID-19 vaccine series completed Hx of major depression GERD (gastroesophageal reflux disease) History of anemia Arthritis Chronic back pain Colon cancer screening HLD (hyperlipidemia) HTN (hypertension) Old anterior myocardial infarction CAD (coronary artery disease) RBBB Surgical History History of right knee surgery History of neck surgery History of esophagogastroduodenoscopy (EGD) History of bilateral cataract extraction Hx of colonoscopy Stented coronary artery Family History Father No problems noted. Mother No problems noted. Social History Are you a primary hiv/aids care nurse to a significant other at home: No Do you presently have visiting nurse or other home services: No Alcohol intake: unknown Patient Tobacco Use Status: Never used Tobacco Advance Directives Date on File: 10/06/21 Review of Systems Const Denies chills, Denies fatigue, Denies fever(s), Denies frequent falls, Denies weakness, Denies weight gain and Denies weight loss ENT Denies dizziness Card Denies chest pain, Denies leg edema, Denies lightheadedness, Denies palpitations, Denies dyspnea, Denies dyspnea on exertion, Denies orthopnea and Denies other (loss of consciousness) Resp Denies cough, Denies dyspnea and Denies dyspnea on exertion GI Denies hematochezia and Denies change in stool character Musc Denies abnormal gait, Denies muscle weakness, Denies numbness, Denies radiating pain into limb and Denies tingling Neuro Denies abnormal gait, Denies dizziness, Denies frequent falls, Denies numbness, Denies tingling and Denies weakness Endo Denies fatigue and Denies palpitations Physical Exam Vital Signs: Last Vital Signs Pulse 98 01/06/24 13:33 BP 124/80 01/06/24 13:33 BMI result Body Mass Index 25.0 Const General: cooperative, comfortable, no acute distress, alert and awake Nutritional Appearance: thin Orientation/consciousness: patient oriented x3 Limitations: ambulation with cane Neck Neck: Yes normal visual inspection and Yes no JVD Carotids: normal carotid upstroke Resp Effort & Inspection: normal respiratory effort Auscultation: clear to auscultation bilaterally, no crackles, no rales, no rhonchi and no wheezes Cardio Jugular venous distension: no JVD Rate: regular rate Rhythm: regular rhythm Heart sounds: S1 normal heart sound present, S2 normal heart sound present, no gallops, no murmurs and no rubs Peripheral pulses: Peripheral pulses 2+ throughout GI Inspection: Yes normal to inspection Neuro General: patient oriented x3 Extrem General: Yes normal to inspection, No no pedal edema and No calf tenderness Office Procedures EKG Details: EKG shows normal sinus rhythm with bifascicular block with right bundle and left anterior fascicular block, unchanged from before [id number], Complete Assessment & Plan Assessment & Plan (1) Orthostatic syncope: Code(s): I95.1 - Orthostatic hypotension Plan: Patient recently having increasing symptoms what appears to be orthostatic syncope 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 This is probably from his injury which is also causing spasticity in his lower extremity. He does have significant episodes of this. I have advised him about management. I have advised to increase fluid intake to at least 64 oz and also increase salt intake. Advised to switch his metoprolol to nighttime. Meanwhile I am taking the liberty to prescribe him midodrine 2.5 mg t.i.d. before meals to manage his blood pressure. Advised to monitor blood pressure at home. Will follow up in the clinic in 6 weeks time to assess for orthostatic blood pressure change and symptom improvement and may require further uptitration of his medication. (2) CAD (coronary artery disease): Code(s): I25.10 - Atherosclerotic heart disease of [place] coronary artery without angina pectoris Plan: CAD with remote stenting of the LAD. Doing well from that perspective. No symptoms of angina. Continue low-dose aspirin therapy. His LDL is at 30 mg/dL and is very well optimized and appears like he is only taking ezetimibe therapy. Will confirm this with the pharmacy to see make sure that he is also not on a statin therapy. Follow up in the clinic in 6 weeks time sooner p.r.n.. Thank you allowing me to partake in his care Medications: New midodrine do not give last dose of day after 6PM or within 4 hrs of bedtime 2.5 mg PO TID 90 tabs 3RF Changed From metoprolol succinate ER 50 mg PO DAILY To metoprolol succinate ER 50 mg PO QPM Coding Level of Care Code Est Pt Level 4 (74300) Diagnoses Orthostatic syncope I95.1 CAD (coronary artery disease) I25.10 CPT Codes EKG - CPT: 30026-Zcpippsniwquuukym, Complete ([id number])
== END 2024-01-06 14:10 | disposition home or self-care (01) ==
PROVIDERS: PCP Family Medicine; Visit Provider Internal Medicine Cardiovascular Disease
DX: I95.1 Orthostatic hypotension (principal); I25.10 Atherosclerotic heart disease of native coronary artery without angina pectoris
CPT/HCPCS: 93010; 99214

== ENCOUNTER → 2024-01-06 13:26 | Outpatient (BNVA) | payer OTHER, SELFPAY | PROVIDERS: PCP Family Medicine; Visit Provider Internal Medicine Cardiovascular Disease | DX: I95.1 Orthostatic hypotension (principal); I25.10 Atherosclerotic heart disease of native coronary artery without angina pectoris; Z79.899 Other long term (current) drug therapy | CPT/HCPCS: 93005; 99212 ==

== ENCOUNTER 2024-02-28 09:26 | Outpatient (AMB) | payer OTHER, SELFPAY ==
[2024-02-28 09:51] VITALS: BP 124/74; PULSE 97; BMI 25.1
--- NOTE | 2024-02-28 09:51 | A.OFFVIS_ITS ---
Vital Signs 02/28/24 09:51 02/28/24 09:57 02/28/24 10:00 Height 5 ft 4 in Weight 146 lb 6.191 oz BMI 25.1 BP 124/74 108/69 114/70 Blood Pressure Location Lt brachial Lt brachial Lt brachial Position Sitting Standing Supine Pulse 97 108 H 93 Pulse Source Pulse Oximeter Pulse Oximeter Pulse Oximeter Intake Visit Reasons: 6 wk fu orthostatics Rolling Machine Operator Required: No Allergies amoxicillin [Amoxicillin] Allergy (Mild, Verified 02/28/24 09:55) RASH Penicillins Allergy (Mild, Verified 02/28/24 09:55) RASH sulfamethoxazole [From BACTRIM] Allergy (Unknown, Verified 02/28/24 09:55) UNKNOWN trimethoprim [From BACTRIM] Allergy (Unknown, Verified 02/28/24 09:55) UNKNOWN atorvastatin [Lipitor] Adverse Reaction (Unknown, Verified 02/28/24 09:55) unk Medication List - Last Reconciled 02/28/24 by Viviana Gurrola NP-C aspirin (Adult Aspirin Regimen) 81 mg PO BEDTIME fjndifqol-gwfknreq-pdzmtcu ala 50-200-25 mg (Biktarvy) 1 tab PO BEDTIME diazepam (Valium) 5 mg PO BEDTIME PRN ezetimibe (Zetia) 10 mg PO DAILY 90 days gabapentin 300 mg PO TID metformin 500 mg PO BID metoprolol succinate ER 50 mg PO QPM midodrine 2.5 mg PO TID morphine ER 1 tab PO TID morphine ER (MS Contin) 30 mg PO Q8H omega-3 fatty acids-fish oil 340-1,000 mg (Fish Oil) 2 caps PO QAM omeprazole 40 mg PO DAILY@0630 oxycodone 5 mg PO BID PRN oxycodone ER (OxyContin) 10 mg PO QID PRN oxycodone-acetaminophen 5-325 mg 1 tab PO BID PRN pioglitazone 45 mg PO QAM HPI HPI 6 wk fu orthostatics: Details: Ventura is a 68-year-old male with past medical history of hypertension, hyperlipidemia, coronary artery disease, bifascicular block, orthostatic syncope who presents for follow-up after recent medication change. Today he reports he has been feeling well since his last visit. He has not had any recurrent presyncope, syncope, falls. He says is doing much better with the addition of midodrine. Says he has only been taking it twice daily. He increased his fluids up to 64 oz daily. Continues to not use salt at he does not like it. He uses caution when going sitting to standing. He ambulates with a cane. He denies lightheadedness. No chest discomfort at rest or with activity. No concerning shortness of breath, PND orthopnea or edema. Does only light physical activities. [facility] Medical History HIV (human immunodeficiency virus infection) COVID-19 vaccine series completed Hx of major depression GERD (gastroesophageal reflux disease) History of anemia Arthritis Chronic back pain Colon cancer screening HLD (hyperlipidemia) HTN (hypertension) Old anterior myocardial infarction CAD (coronary artery disease) RBBB Surgical History History of right knee surgery History of neck surgery History of esophagogastroduodenoscopy (EGD) History of bilateral cataract extraction Hx of colonoscopy Stented coronary artery Family History Father No problems noted. Mother No problems noted. Social History Are you a primary critical care rn to a significant other at home: No Do you presently have visiting nurse or other home services: No Alcohol intake: unknown Patient Tobacco Use Status: Never used Tobacco Advance Directives Date on File: 10/06/21 Review of Systems Const All systems reviewed & are unremarkable except as noted in HPI and below ENT Denies dizziness Card Denies chest pain, Denies chest pain at rest, Denies chest pain with activity, Denies rapid heart rate, Denies pedal edema, Denies edema, Denies leg edema, Denies lightheadedness, Denies palpitations, Denies dyspnea, Denies dyspnea on exertion and Denies orthopnea Resp Denies cough, Denies dyspnea and Denies dyspnea on exertion GI Denies hematochezia and Denies change in stool character Musc Details: uses cane Reports abnormal gait, Denies limited range of motion, Denies muscle cramps, Denies muscle weakness, Denies numbness, Denies radiating pain into limb, Denies stiffness and Denies tingling Neuro Reports abnormal gait, Denies dizziness, Denies numbness and Denies tingling Endo Denies palpitations Physical Exam Vital Signs: Last Vital Signs Pulse 93 02/28/24 10:00 BP 114/70 02/28/24 10:00 BMI result Body Mass Index 25.1 Const General: cooperative, comfortable and no acute distress Orientation/consciousness: patient oriented x3 Neck Neck: Yes normal visual inspection and Yes no JVD Resp Effort & Inspection: normal respiratory effort Auscultation: clear to auscultation bilaterally, no rales, no rhonchi and no wheezes Cardio Jugular venous distension: no JVD Rate: regular rate Rhythm: regular rhythm Heart sounds: S1 normal heart sound present, S2 normal heart sound present, no murmurs and no rubs Neuro General: patient oriented x3 Extrem General: Yes normal to inspection and No no pedal edema Psych Appearance: grossly normal Mental Status: mental status grossly normal Speech and movement: Normal speech and movement present Assessment & Plan Assessment & Plan (1) Orthostatic syncope: Code(s): I95.1 - Orthostatic hypotension Category: Medical Plan: Reports of syncope after quick position changes or prolonged sitting than standing. He does have known history of cervical spine injury causing spasticity in his lower extremities. This may contribute to his tendency to have orthostatic drops in blood pressure. On last visit he was instructed to increase his fluid intake up to 64 oz daily, increased salt, change his metoprolol to nighttime. He was also started on midodrine 2.5 mg t.i.d.. Patient states at this time he is doing very well and has not had any presyncope, syncope, falls since his last visit in December. He is taking the midodrine only twice daily, breakfast and dinner. He has not been able to increase his salt intake does he does not like it. He has increased his fluid as directed. He has not significantly orthostatic on exam today. Treatment measures reviewed again with him in detail. Will have him continue to follow this treatment plan. Cardiology follow-up in 6 months, sooner if needed. (2) HTN (hypertension): Code(s): I10 - Essential (primary) hypertension Category: Medical Plan: Notes indicate history of hypertension. He has been running blood pressure is on the lower side. His metoprolol was moved to nighttime to help prevent supine hypertension. He is using midodrine in the daytime with better control of his orthostatic blood pressure and symptoms. (3) CAD (coronary artery disease): Code(s): I25.10 - Atherosclerotic heart disease of [place] coronary artery without angina pectoris Category: Medical Plan: History of CAD with remote LAD stent. No reports of anginal sounding symptoms. Signs and symptoms of angina reviewed with him. Continue aspirin indefinitely. Continue Zetia, metoprolol. (4) HLD (hyperlipidemia): Code(s): E78.5 - Hyperlipidemia, unspecified Category: Medical Plan: [place] LDL goal less than 70. According to med list it does not seem that he is on statin. Is on Zetia. Labs done 09/15/2023 did show LDL 30. Can continue current treatment Plan Time spent on chart review, documentation, interview and assessment Coding Level of Care Code Est Pt Level 3 (22579) Diagnoses Orthostatic syncope I95.1 HTN (hypertension) I10 CAD (coronary artery disease) I25.10 HLD (hyperlipidemia) E78.5 Time Spent (min) 24
[2024-02-28 09:57] VITALS: BP 108/69; PULSE 108
[2024-02-28 10:00] VITALS: BP 114/70; PULSE 93
== END 2024-02-28 10:16 | disposition home or self-care (01) ==
PROVIDERS: PCP Family Medicine; Visit Provider Nurse Practitioner Family
DX: I95.1 Orthostatic hypotension (principal); I10 Essential (primary) hypertension; I25.10 Atherosclerotic heart disease of native coronary artery without angina pectoris; E78.5 Hyperlipidemia, unspecified
CPT/HCPCS: 99213

== ENCOUNTER → 2024-02-28 09:26 | Outpatient (BNVA) | payer OTHER, MEDICAID, SELFPAY | PROVIDERS: PCP Family Medicine; Visit Provider Nurse Practitioner Family | DX: I25.10 Atherosclerotic heart disease of native coronary artery without angina pectoris (principal); I10 Essential (primary) hypertension; I95.1 Orthostatic hypotension; E78.5 Hyperlipidemia, unspecified | CPT/HCPCS: 99212 ==

== ENCOUNTER 2024-03-07 10:40 | Outpatient (REF) | payer MEDICARE, MEDICAID, SELFPAY | END 2024-03-07 10:41 | disposition home or self-care (01) | LOC: HO.HHCL 10:40 | PROVIDERS: Visit Provider Family Medicine | DX: Z13.89 Encounter for screening for other disorder (principal) ==

== ENCOUNTER 2024-05-22 11:26 | Outpatient (REF) | payer OTHER, SELFPAY ==
[2024-05-22 13:09] LABS: MANUAL DIFF FLAG NO
[2024-05-22 13:20] LABS: Basophils Percent Auto 0.5 % (0-2); Eosinophils Absolute Auto 0.1 X10*3/uL (0.0-0.4); Eosinophils Percent Auto 2.3 % (0-4); Hematocrit 41.6 % (42.0-52.0); Hemoglobin 13.5 g/dl (14.0-18.0); Imm Gran Abs Auto 0.02 X10*3/uL (0.00-0.03); Imm Gran Pct Auto 0.3 % (0.0-0.4); Lymphocytes Absolute Auto 1.2 X10*3/uL (1.2-4.9); Lymphocytes Percent Auto 19.6 % (20-40); Mean Corpuscular HGB Conc 32.5 g/dl (31.0-36.0); Mean Corpuscular Hemoglobin 28.4 pg (27.0-33.0); Mean Corpuscular Volume 87.4 fL (80.0-98.0); Monocytes Absolute Auto 0.6 X10*3/uL (0.1-1.2); Monocytes Percent Auto 9.2 % (2-11); Neutrophils Absolute Auto 4.2 x10*3/uL (2.0-8.3); Neutrophils Percent Auto 68.1 % (45-73); Platelet Count 172 X10*3/uL (160-400); Red Blood Count 4.76 X10*6/uL (4.60-5.80); Red Cell Distribution Width 14.1 % (11.0-16.0); White Blood Count 6.2 X10*3/uL (4.8-10.8)
[2024-05-22 13:40] LABS: B Type Natriuretic Peptide < 10 pg/mL (<100)
[2024-05-22 13:49] LABS: Estimated Average Glucose 194 mg/dL; Hemoglobin A1c % 8.4 % (<6.0)
[2024-05-22 13:55] LABS: Alanine Aminotransferase 37 U/L (0-40); Albumin Level 4.3 g/dL (3.5-5.0); Alkaline Phosphatase 83 U/L (39-117); Anion Gap 13 (12-20); Aspartate Amino Transferase 34 U/L (5-37); Bilirubin Direct 0.1 mg/dL (0.0-0.5); Bilirubin Total 0.4 mg/dL (0.0-1.0); Blood Urea Nitrogen 23 mg/dL (9-16); Calcium 9.7 mg/dL (8.4-10.2); Carbon Dioxide 26 mmol/L (22-29); Chloride 101 mmol/L (96-108); Cholesterol 85 mg/dL (<200); Estimated Glomerular Filt Rate > 60; Glucose Random 152 mg/dL (60-115); HDL Cholesterol 31 mg/dL (>40); Iron 60 mcg/dL (45-160); LDL Cholesterol Calculated 20 mg/dL (<100); Percent Iron Saturation 18 % (15-50); Potassium 4.9 mmol/L (3.3-5.1); Sodium 135 mmol/L (135-145); Total Iron Binding Capacity 340 mcg/dL (228-428); Total Protein 8.1 g/dL (6.5-8.0); Triglycerides 173 mg/dL (<150); Unsaturated Iron Binding 280 ug/dL
[2024-05-22 13:58] LABS: Ferritin 11 ng/mL (20-250); Free T4 (Free Thyroxine) 1.03 ng/dL (0.71-1.85); Vitamin D 25-OH Total 61.9 ng/mL (>30)
[2024-05-22 13:58] LABS: Creatinine Urine 47.77 mg/dL
[2024-05-22 14:12] LABS: Thyroid Stimulating Hormone 0.98 uIU/mL (0.32-4.0)
[2024-05-22 14:23] LABS: Folate 11.1 ng/mL (> or = 4.0); Vitamin B12 315 pg/mL (200-900)
[2024-05-22 15:18] LABS: CT PCR NOT DETECTED (Not Detect.); NG PCR NOT DETECTED (Not Detect.)
[2024-05-23 08:23] LABS: HBS Num1 84.47 mIU/mL (0-7.99); HBc Num1 0.12 S/CO (0.00-0.79); HBsAGNum1 0.48 S/CO (0.00-0.99); Hepatitis A Antibody IgG REACTIVE (Nonreactive); Hepatitis B Core Antibody Nonreactive (Nonreactive); Hepatitis B Surface Antigen Negative (Negative); ~HepC Num1 0.17 S/CO (0.00-0.79); ~Hepatitis A Antibody IgG 11.05 S/CO (0.00-0.99); ~Hepatitis B Surface Antibody REACTIVE (Nonreactive); ~Hepatitis C Antibody Nonreactive (Nonreactive)
[2024-05-23 08:35] LABS: Syphilis Screen Nonreactive (Nonreactive)
[2024-05-24 12:04] LABS: HIV RNA PCR Qn Copies 72 copies/mL (NOT DETECTED); HIV RNA PCR Qn Log Copies 1.86 (NOT DETECTED)
[2024-05-25 00:09] LABS: TS Negative Control Passed; TS Panel A 0; TS Panel B 0; TS Positive Control Passed; TSpotTB Negative (Negative)
[2024-05-27 00:09] LABS: Absolute CD3 Count 701 cells/uL (840-3060); Absolute CD4 Count 402 cells/uL (490-1740); Absolute CD8 Count 303 cells/uL (180-1170); Absolute Lymphocytes 1083 cells/uL (850-3900); CD4 CD8 Ratio 1.33 (0.86-5.00); Percent CD3 Cells 65 % (57-85); Percent CD4 Cells 37 % (30-61); Percent CD8 Cells 28 % (12-42)
== END 2024-05-22 11:27 | disposition home or self-care (01) ==
LOC: HO.HHCL 11:26
PROVIDERS: Referring Provider Internal Medicine; Visit Provider Family Medicine
DX: B20 Human immunodeficiency virus [HIV] disease (principal); R53.83 Other fatigue; Z13.1 Encounter for screening for diabetes mellitus; Z11.59 Encounter for screening for other viral diseases; Z72.89 Other problems related to lifestyle
CPT/HCPCS: 36415; 80053; 80061; 82043; 82248; 82306; 82570; 82607; 82728; 82746; 83036; 83540; 83880; 84439; 84443; 85025; 85027; 86359; 86360; 86481; 86704; 86706; 86708; 86780; 86803; 87340; 87491; 87536; 87591

== ENCOUNTER 2024-10-09 13:25 | Outpatient (AMB) | payer OTHER, SELFPAY ==
--- NOTE | 2024-10-09 13:29 | MHC.OFFVIS ---
Vital Signs 10/09/24 13:30 Height 5 ft 4 in Weight 142 lb 13.753 oz BMI 24.5 BP 122/60 Blood Pressure Location Lt brachial Position Sitting Pulse 93 Pulse Source Pulse Oximeter Intake Visit Reasons: 6m follow up Sales Agent Pest Control Service Required: No Biological Science Technician: Biological Science Technician Present Allergies amoxicillin [Amoxicillin] Allergy (Mild, Verified 10/09/24 13:32) RASH Penicillins Allergy (Mild, Verified 10/09/24 13:32) RASH sulfamethoxazole [From BACTRIM] Allergy (Unknown, Verified 10/09/24 13:32) UNKNOWN trimethoprim [From BACTRIM] Allergy (Unknown, Verified 10/09/24 13:32) UNKNOWN atorvastatin [Lipitor] Adverse Reaction (Unknown, Verified 10/09/24 13:32) unk midodrine Allergy (Uncoded 10/09/24 17:24) Rash Medication List - Last Reconciled 10/09/24 by Viviana Gurrola TORPED[employer] MAN-C aspirin (Adult Aspirin Regimen) 81 mg PO BEDTIME pjoegkecr-viobwhdi-etwzevy ala 50-200-25 mg (Biktarvy) 1 tab PO BEDTIME diazepam (Valium) 5 mg PO BEDTIME PRN ezetimibe (Zetia) 10 mg PO DAILY 90 days gabapentin 300 mg PO TID insulin lispro (Humalog U-100 Insulin) subcut metformin 500 mg PO BID metoprolol succinate ER 25 mg PO QPM morphine ER 1 tab PO TID morphine ER (MS Contin) 30 mg PO Q8H omega-3 fatty acids-fish oil 340-1,000 mg (Fish Oil) 2 caps PO QAM omeprazole 40 mg PO DAILY@0630 oxycodone 5 mg PO BID PRN oxycodone-acetaminophen 5-325 mg 1 tab PO BID PRN pioglitazone 45 mg PO QAM HPI HPI 6m follow up: Details: Ventura is a 68-year-old male with past medical history of hypertension, hyperlipidemia, coronary artery disease, bifascicular block, orthostatic syncope who presents for follow-up. Today he reports that is allergic to midodrine and developed a rash. His rash resolved after stopping it. He has not had any recent issues with lightheadedness, presyncope, syncope, falls. He trying maintain good hydration. He does not add salt to his diet because he does not like how it tastes. He has mobility issues with leg unsteadiness. He always uses caution when changing positions and when going sitting to standing. He ambulates with a cane. No chest discomfort at rest or with activity. No concerning shortness of breath, PND orthopnea or edema. Does only light physical activities. Significant other present. [facility] Medical History HIV (human immunodeficiency virus infection) COVID-19 vaccine series completed Hx of major depression GERD (gastroesophageal reflux disease) History of anemia Arthritis Chronic back pain Colon cancer screening HLD (hyperlipidemia) HTN (hypertension) Old anterior myocardial infarction CAD (coronary artery disease) RBBB Surgical History History of right knee surgery History of neck surgery History of esophagogastroduodenoscopy (EGD) History of bilateral cataract extraction Hx of colonoscopy Stented coronary artery Family History Father No problems noted. Mother No problems noted. Social History Are you a primary manager care management to a significant other at home: No Do you presently have visiting nurse or other home services: No Alcohol intake: unknown Patient Tobacco Use Status: Never used Tobacco Advance Directives Date on File: 10/06/21 Review of Systems Const All systems reviewed & are unremarkable except as noted in HPI and below ENT Denies dizziness Card Denies chest pain, Denies chest pain at rest, Denies chest pain with activity, Denies rapid heart rate, Denies pedal edema, Denies edema, Denies leg edema, Denies lightheadedness, Denies palpitations, Denies dyspnea, Denies dyspnea on exertion and Denies orthopnea Resp Denies cough, Denies dyspnea and Denies dyspnea on exertion GI Denies hematochezia and Denies change in stool character Musc Reports abnormal gait, Denies limited range of motion, Denies muscle cramps, Reports muscle weakness, Denies numbness, Denies radiating pain into limb, Denies stiffness and Denies tingling Neuro Reports abnormal gait, Denies dizziness, Denies numbness and Denies tingling Endo Denies palpitations Physical Exam Vital Signs: Last Vital Signs Pulse 93 10/09/24 13:30 BP 122/60 10/09/24 13:30 BMI result Body Mass Index 24.5 Const General: cooperative, comfortable and no acute distress Orientation/consciousness: patient oriented x3 Neck Neck: Yes normal visual inspection and Yes no JVD Resp Effort & Inspection: normal respiratory effort Auscultation: clear to auscultation bilaterally, no rales, no rhonchi and no wheezes Cardio Jugular venous distension: no JVD Rate: regular rate Rhythm: regular rhythm Heart sounds: S1 normal heart sound present, S2 normal heart sound present, no murmurs and no rubs Neuro General: patient oriented x3 Extrem General: Yes normal to inspection and No no pedal edema Psych Appearance: grossly normal Mental Status: mental status grossly normal Speech and movement: Normal speech and movement present Assessment & Plan Assessment & Plan (1) Orthostatic syncope: Code(s): I95.1 - Orthostatic hypotension Category: Medical Plan: Prior report of syncope after quick position changes or prolonged sitting than standing. He does have known history of cervical spine injury causing spasticity in his lower extremities. This may contribute to his tendency to have orthostatic drops in blood pressure. He had been put on midodrine but today states that he became allergic to it and developed a rash. He is off midodrine and tells me his condition has been stable with no recurrent presyncope or syncope. He maintains good hydration. Reviewed the need to drink at least 64 oz daily. He dislikes the taste of salt and does not add it to his food. Informed him that liberal use of salt would help to keep his blood pressure more elevated. He continues to take metoprolol at night. He is not significantly orthostatic on exam today.- BP checked by me sitting 122/62, standing 118/62. If he does have recurrent issues then fludrocortisone can be considered. Ongoing treatment plan reviewed with him. Cardiology follow-up in 9 months, sooner if needed. (2) HTN (hypertension): Code(s): I10 - Essential (primary) hypertension Category: Medical Plan: Notes indicate history of hypertension. stable at present. (3) CAD (coronary artery disease): Code(s): I25.10 - Atherosclerotic heart disease of [place] coronary artery without angina pectoris Category: Medical Plan: History of CAD with remote LAD stent. No reports of anginal sounding symptoms. Signs and symptoms of angina reviewed with him. Continue aspirin indefinitely. Continue Zetia, metoprolol. (4) HLD (hyperlipidemia): Code(s): E78.5 - Hyperlipidemia, unspecified Category: Medical Plan: [place] LDL goal less than 70. According to med list it does not seem that he is on statin. Is on Zetia. Labs done 05/22/24 did show LDL 20. Can continue current treatment Plan Time spent on chart review, documentation, interview and assessment Coding Level of Care Code Est Pt Level 4 (36038) Complex EM visit Add On G2211 Diagnoses Orthostatic syncope I95.1 HTN (hypertension) I10 CAD (coronary artery disease) I25.10 HLD (hyperlipidemia) E78.5 Time Spent (min) 28
[2024-10-09 13:30] VITALS: BP 122/60; PULSE 93; BMI 24.5
== END 2024-10-09 13:58 | disposition home or self-care (01) ==
PROVIDERS: PCP Family Medicine; Visit Provider Nurse Practitioner Family
DX: I95.1 Orthostatic hypotension (principal); I10 Essential (primary) hypertension; I25.10 Atherosclerotic heart disease of native coronary artery without angina pectoris; E78.5 Hyperlipidemia, unspecified
CPT/HCPCS: 99214; G2211

== ENCOUNTER → 2024-10-09 13:25 | Outpatient (BNVA) | payer OTHER, SELFPAY | PROVIDERS: PCP Family Medicine; Visit Provider Nurse Practitioner Family | DX: I95.1 Orthostatic hypotension (principal); I10 Essential (primary) hypertension; I25.10 Atherosclerotic heart disease of native coronary artery without angina pectoris; E78.5 Hyperlipidemia, unspecified | CPT/HCPCS: 99212 ==

== ENCOUNTER 2025-01-11 10:23 | Outpatient (REF) | payer OTHER, SELFPAY ==
[2025-01-11 11:10] LABS: MANUAL DIFF FLAG NO
[2025-01-11 11:14] LABS: Basophils Percent Auto 0.2 % (0-2); Eosinophils Percent Auto 0.5 % (0-4); Hematocrit 44.3 % (42.0-52.0); Hemoglobin 14.5 g/dl (14.0-18.0); Imm Gran Abs Auto 0.04 X10*3/uL (0.00-0.03); Imm Gran Pct Auto 0.5 % (0.0-0.4); Lymphocytes Absolute Auto 1.3 X10*3/uL (1.2-4.9); Lymphocytes Percent Auto 14.6 % (20-40); Mean Corpuscular HGB Conc 32.7 g/dl (31.0-36.0); Mean Corpuscular Volume 85.5 fL (80.0-98.0); Mean Platelet Volume 10.5 fL (9.4-12.4); Monocytes Absolute Auto 0.4 X10*3/uL (0.1-1.2); Monocytes Percent Auto 4.8 % (2-11); Neutrophils Absolute Auto 6.8 x10*3/uL (2.0-8.3); Neutrophils Percent Auto 79.4 % (45-73); Platelet Count 184 X10*3/uL (160-400); Red Blood Count 5.18 X10*6/uL (4.60-5.80); Red Cell Distribution Width 14.6 % (11.0-16.0); White Blood Count 8.6 X10*3/uL (4.8-10.8)
[2025-01-11 12:01] LABS: Prostate Specific Antigen 0.65 ng/mL (<0.05-4.0)
[2025-01-11 12:03] LABS: Prostate Specific Antigen Scr 0.67 ng/mL (<0.05-4.0)
[2025-01-11 12:13] LABS: Alanine Aminotransferase 58 U/L (0-40); Albumin Level 4.5 g/dL (3.5-5.0); Alkaline Phosphatase 84 U/L (39-117); Anion Gap 14 (12-20); Aspartate Amino Transferase 37 U/L (5-37); Bilirubin Total 0.4 mg/dL (0.0-1.0); Blood Urea Nitrogen 21 mg/dL (9-16); Calcium 10.1 mg/dL (8.4-10.2); Carbon Dioxide 26 mmol/L (22-29); Chloride 103 mmol/L (96-108); Estimated Glomerular Filt Rate > 60; Glucose Random 147 mg/dL (60-115); Potassium 4.2 mmol/L (3.3-5.1); Sodium 139 mmol/L (135-145); Total Protein 8.2 g/dL (6.5-8.0)
[2025-01-13 19:19] LABS: HIV RNA PCR Qn Copies NOT DETECTED copies/mL (NOT DETECTED); HIV RNA PCR Qn Log Copies NOT DETECTED (NOT DETECTED)
[2025-01-17 18:09] LABS: Absolute CD3 Count 705 cells/uL (840-3060); Absolute CD4 Count 369 cells/uL (490-1740); Absolute CD8 Count 336 cells/uL (180-1170); Absolute Lymphocytes 1262 cells/uL (850-3900); Percent CD3 Cells 56 % (57-85); Percent CD4 Cells 29 % (30-61); Percent CD8 Cells 27 % (12-42)
== END 2025-01-11 10:24 | disposition home or self-care (01) ==
LOC: HO.HHCL 10:23
PROVIDERS: Family Medicine; Visit Provider Internal Medicine
DX: Z21 Asymptomatic human immunodeficiency virus [HIV] infection status (principal); R35.0 Frequency of micturition; Z12.5 Encounter for screening for malignant neoplasm of prostate
CPT/HCPCS: 36415; 80053; 84153; 85025; 86359; 86360; 87536

== ENCOUNTER 2025-01-25 09:02 | Outpatient (AMB) | payer OTHER, SELFPAY ==
--- NOTE | 2025-01-25 09:16 | A.OFFVIS_ITS ---
Intake Visit Reasons: urinary frequency Intake Note: New Patient presents for initial visit for urinary frequency Urology Medications: none Blood Thinner: aspirin PVR: 16ml's Visiting Housekeeper Required: No Accompanied by: Self / Same As Patient Allergies amoxicillin [Amoxicillin] Allergy (Mild, Verified 01/25/25 09:58) RASH Penicillins Allergy (Mild, Verified 01/25/25 09:58) RASH sulfamethoxazole [From BACTRIM] Allergy (Unknown, Verified 01/25/25 09:58) UNKNOWN trimethoprim [From BACTRIM] Allergy (Unknown, Verified 01/25/25 09:58) UNKNOWN atorvastatin [Lipitor] Adverse Reaction (Unknown, Verified 01/25/25 09:58) unk midodrine Allergy (Uncoded 01/25/25 09:58) Rash Medication List - Last Reconciled 01/25/25 by KAITLYNN Gomez- aspirin (Adult Aspirin Regimen) 81 mg PO BEDTIME ffxlkxokc-yadtpakp-wrxdkee ala 50-200-25 mg (Biktarvy) 1 tab PO BEDTIME diazepam (Valium) 5 mg PO BEDTIME PRN ezetimibe (Zetia) 10 mg PO DAILY 90 days insulin lispro (Humalog U-100 Insulin) subcut metoprolol succinate ER 25 mg PO QPM morphine ER 1 tab PO TID morphine ER (MS Contin) 30 mg PO Q8H omega-3 fatty acids-fish oil 340-1,000 mg (Fish Oil) 2 caps PO QAM omeprazole 40 mg PO DAILY@0630 oxycodone 5 mg PO BID PRN oxycodone-acetaminophen 5-325 mg 1 tab PO BID PRN pioglitazone 45 mg PO QAM HPI Comments Details: Ventura his a 69-year-old male patient of Dr. Chavez. He has a past medical history of HIV, depression, GERD, anemia, arthritis, chronic back pain, hyperlipidemia, hypertension, coronary artery disease, and right bundle branch block. He presents to the office today as a new patient for urinary frequency and nocturia. In discussion with the patient today he reports noting over the last 3-6 months he has been having ongoing issues with urinary frequency up to 7 times per day as well as episodes of nocturia up to 5 times per night. He otherwise denies incontinence, hematuria, dysuria, foul smelling urine, changes to urinary stream, flank pain, fever, and or chills. In office urinalysis results reviewed with the patient today. PVR 16 mL. In review of patient's chart it appears PSA 01/09 0.7. He does discuss having elevated glucose levels and was recently referred to endocrinology with an upcoming appointment on February 16. We discussed at length potential causes of lower urinary tract symptoms patient was experiencing as well as affects of uncontrolled diabetes on urinary issues as well as the bladder. We discussed obtaining retroperitoneal ultrasound for further assessment evaluation. We discussed importance of limiting fluids 2-3 hours prior to bed and management and diabetes for improvement in lower urinary tract symptoms as well as overall health and well- being. He discusses his ongoing issues with neuropathy and balance. He otherwise offers no other issues or concerns at this time. Plan To address the patient's urinary frequency, exploration of a dietary strategy to manage diabetes mellitus was discussed, recognizing its link to bladder symp toms. A renal and bladder ultrasound has been ordered to examine anatomical causes of frequency. Emphasis is placed on strict diet management and monitoring of glucose levels to reduce glycosuria-related complications. Consideration for physical therapy to improve balance and manage neuropathy once severe pain is managed was mentioned. Discussions with the patient included consent for ultrasound and strategies for improved glycemic control. Patient was informed and verbally consented to the use of an ambient scribe for clinic note documentation during this visit. Discussion Notes I discussed with the patient and his family the likely link between poorly controlled diabetes and the current urinary symptoms. The benefits of pursuing a diabetic-appropriate diet to manage the urinary and neuropathic symptoms were emphasized. I explained that an ultrasound of the kidneys and bladder would help further evaluate any underlying issues contributing to his urinary frequency. The potential need for intervention depending on the results was also addressed. The patient consented to the ultrasound and dietary plan. Follow-ups and continual monitoring of blood glucose levels as well as considering physical therapy to boost mobility were communicated. He was advised to seek care sooner if symptoms exacerbate. [facility] Medical History HIV (human immunodeficiency virus infection) COVID-19 vaccine series completed Hx of major depression GERD (gastroesophageal reflux disease) History of anemia Arthritis Chronic back pain Colon cancer screening HLD (hyperlipidemia) HTN (hypertension) Old anterior myocardial infarction CAD (coronary artery disease) RBBB Surgical History History of right knee surgery History of neck surgery History of esophagogastroduodenoscopy (EGD) History of bilateral cataract extraction Hx of colonoscopy Stented coronary artery Family History Father No problems noted. Mother No problems noted. Social History Are you a primary long term care administrator to a significant other at home: No Do you presently have visiting nurse or other home services: No Alcohol intake: unknown Patient Tobacco Use Status: Never used Tobacco Advance Directives Date on File: 10/06/21 Review of Systems Eyes Reports no additional complaints ENT Reports no additional complaints Card Reports as per HPI Resp Reports no additional complaints GI Reports as per HPI Reports as per HPI Musc Reports as per HPI Neuro Reports as per HPI Psych Reports as per HPI Endo Reports as per HPI Ricardo/Lymph Reports as per HPI Aller/Immun Reports as per HPI Physical Exam Const General: cooperative, healthy appearing, comfortable, no acute distress, well developed, alert and awake Orientation/consciousness: patient oriented x3 Limitations: wheelchair HEENT Head: Yes normal to inspection, Yes normocephalic and Yes atraumatic Ears: hearing grossly normal bilaterally Eyes General: appearance normal, both eyes and all related structures Neck Neck: Yes normal visual inspection and Yes trachea midline Chest Chest palpation & inspection: normal inspection of the chest Resp Effort & Inspection: normal respiratory effort and able to speak in complete sentences Cardio Rate: regular rate GI Inspection: Yes normal to inspection General: Yes no CVA tenderness Back/Spine/Pelvis Back: no CVA tenderness Skin General skin exam: no rashes or lesions noted Neuro General: patient oriented x3 Extrem General: Yes normal to inspection Psych Appearance: grossly normal and well kempt Mental Status: mental status grossly normal Speech and movement: Normal speech and movement present and Clear speech present Affect: normal affect Attitude: cooperative Thought process: Normal thought process present Thought content: Normal thought content present Insight: Fair insight present (Psych) Judgement: Fair judgement present (Psych) Office Procedures Post Void Residual Post Residual Void Post Void Residual (PVR): 16 [id number] Void Residual by ultrasound Results AMB Urinalysis, Automated UA Leukoctes 0 [place]/uL Last Edit by Nuvia White on 01/25/25 09:42 UA Nitrite Last Edit by [employer] on 01/25/25 09:42 UA Urobilinogen 0.2 mg/dL Last Edit by [email or web address] on 01/25/25 09:42 UA Protein 0 mg/dL Last Edit by [email or web address] on 01/25/25 09:42 UA pH 5.5 Last Edit by [employer] on 01/25/25 09:42 UA Blood 0 Leon/uL Last Edit by [email or web address] on 01/25/25 09:42 UA Specific [place] 1.015 Last Edit by [employer] on 01/25/25 09:42 UA Ketone Last Edit by [email or web address] on 01/25/25 09:42 UA Bilirubin 0 mg/dL Last Edit by [email or web address] on 01/25/25 09:42 UA Glucose 1000 mg/dL Last Edit by [employer] on 01/25/25 09:42 Results Reviewed Results Reviewed: Laboratory Last Values Urine pH (Auto) 5.5 01/25/25 09:41 Specific [place] (Auto) 1.015 01/25/25 09:41 Urine Protein (Auto) 0 mg/dL 01/25/25 09:41 Glucose (UA)(Auto) 1000 mg/dL 01/25/25 09:41 Urine Blood (Auto) 0 Leon/uL 01/25/25 09:41 Urine Bilirubin (Auto) 0 mg/dL 01/25/25 09:41 Urine Urobilinogen (Auto) 0.2 mg/dL 01/25/25 09:41 Leukocyte Esterase (Auto) 0 [place]/uL 01/25/25 09:41 Assessment & Plan Assessment & Plan (1) Urinary frequency: Code(s): R35.0 - Frequency of micturition Category: Medical (2) Nocturia: Code(s): R35.1 - Nocturia Category: Medical Plan In office urinalysis results reviewed with the patient today; as noted above. PVR 16 mL. Recent PSA results reviewed with the patient today; as noted above. Will obtain retroperitoneal ultrasound for further assessment evaluation. We discussed at length potential causes for lower urinary tract symptoms patient was experiencing as well as further treatment options and risks and benefits of these treatment options. We discussed importance of management and diabetes for improvement lower urinary tract symptoms as well as overall health and well-being. Follow-up in 1-3 months with imaging and PVR; or sooner with any issues, concerns, and or questions. Orders: Orders AMB Urinalysis Automated Today Z13.9 - Encounter for screening, unspecified AMB Post Void Residual by ultrasound Today N39.41 - Urge incontinence US retroperitoneal comp Today R35.0 - Frequency of micturition, R35.1 - Nocturia Patient Instructions: The patient had an opportunity to ask questions regarding the treatment plan. All questions were answered. Physical exam, labs, and imaging were discussed and reviewed in detail. As well as risks, benefits, and discussion of treatment choices. No major barriers to understanding were identified. The patient expressed understanding and agreement with the above treatment plan. The patient was made aware they should contact our office by phone for worsening of their current condition, the appearance of new symptoms, or with any questions or concerns. Compliance is encouraged with any medications and follow up testing that is ordered. It is a privilege to be allowed the opportunity to participate in? your urological care.? Again, if you have any questions or concerns If you have any questions or concerns please do not hesitate to contact me. The office is [phone]. This note is constructed using voice recognition software. While every effort has been made to ensure accuracy glass cylinder flanger errors may have been included. Yours sincerely, ZACARIAS Gomez Coding Level of Care Code New Pt Level 3 (45918) Diagnoses Urinary frequency R35.0 Nocturia R35.1 CPT Codes Post Residual Void - PVR CPT Code: 88160-[id number] Void Residual by ultrasound ( [id number])
--- OUTSIDE RECORDS SUMMARY | 2025-01-25 09:37 | XMS_ITS | Clinical Summary ---
Author Organization [facility] Address [address] [address] Phone Care Team Providers Care Telegraphic Typewriter Repairer Name Role Phone La Chavez DO Primary Care Provider Unava ilable Allergies Active Allergy Reactions Criticality Noted Date Comments Aspirin 06/16/2023 Atazanavir 06/16/2023 Influenza Vaccines 06/16/2023 Penicillins 06/16/2023 Pravastatin 06/16/2023 Sulfamethizole 06/16/2023 Trimethoprim 06/16/2023 Medications Bictegravir-Emt ricitab-Tenofov (Biktarvy) 50-200-25 MG tablet Take 1 tablet by mouth 1 (one) time each day Active diazePAM (VALIUM) 5 MG tablet Take 5 mg by mouth every 8 (eight) hours if needed for anxiety Active insulin glargine (Basaglar KwikPen) 100 UNIT/ML injection Inject under the skin every night Active morphine (MSIR) 15 MG tablet Take 15 mg by mouth every 4 (four) hours if needed for severe pain Active omeprazole (PriLOSEC) [address] capsule Take 40 mg by mouth 1 (one) time each day Do not crush or chew. Active rosuvastatin (CRESTOR) 10 MG tablet Take 10 mg by mouth 1 (one) time each day Active aspirin (ST ABBY) 81 MG EC tablet Take 81 mg by mouth 1 (one) time each day Active metoprolol succinate XL (Toprol XL) 25 MG 24 hr tablet Take 1 tablet (25 mg total) by mouth 1 (one) time each day Do not crush or chew. 90 tablet 3 4 03/17/20 25 Active ezetimibe (ZETIA) 10 MG tablet Take 10 mg by mouth 1 (one) time each day 01/09/20 25 Discontinu ed(Med List Maintenanc e) gabapentin (NEURONTIN) 300 MG capsule Take 300 mg by mouth in the morning and 300 mg in the evening and 300 mg before bedtime. 01/09/20 25 Discontinu ed(Med List Maintenanc e) Active Problems Problem Noted Date Diagnosed Date Chronic kidney disease 06/16/2023 Essential (primary) hypertension 06/16/2023 HIV positive 06/16/2023 Type 2 diabetes mellitus 06/16/2023 Encounters Date Type Department Care Team Description 01/08/2025 8:00 AM EDT Office Visit [facility] [address] [phone] La Roberson ARNP Stage 3a chronic kidney disease (HCC) (Primary Dx); Essential (primary) hypertension; Hypercalcemia 12/16/2024 Orders Only [facility] [place] [address] [address] La Roberson ARNP Stage 3a chronic kidney disease (HCC); Essential (primary) hypertension from Last 3 Months Family History Medical History Relation Comments Cancer Brother Heart disease Mother Cancer Sibling brother kidney Relation Status Comments Brother Father Unknown Mother Unknown Sibling Social History Tobacco Use Types Packs/Day Years Used Date Smoking Tobacco: Never Tobacco Cessation:Counseling Given: Not Answered Alcohol Use Standard Drinks/Week Comments No 0 (1 standard drink = 0.6 oz pur e alcohol) Sex and Gender Information Value Date Recorded Sex Assigned at Not on file Legal Sex Male 5:02 PM EST Gender Identity Not on file Sexual Orientation Not on file Last Filed Vital Signs Vital Sign Reading Time Taken Comments Blood Pressure 110/64 01/08/2025 8:09 AM EDT Pulse 90 01/08/2025 7:50 AM EDT Temperature - - Respiratory Rate - - Oxygen Saturation 97% 01/08/2025 7:50 AM EDT Inhaled Oxygen Concentration - - Weight 63.5 kg (140 lb) 01/08/2025 7:50 AM EDT Height 162.6 cm (5' 4 ) 07/10/2019 12:00 PM EDT Body Mass Index 24.03 07/10/2019 12:00 PM EDT Plan of Treatment Upcoming Encounters Date Type Department Care Team (Late st Contact Info) Description 02/04/2025 Orders Only [facility] [address] [phone] La Roberson ARNP [address] [phone] Stage 3a chronic kidney disease (HCC); Hypercalcemia 07/11/2025 8:30 AM EDT Office Visit [facility] [address] [phone] La Roberson ARNP [address] [address] Health Maintenance Due Date Last Done Comments Colorectal Cancer Screening: Annual FOBT 2002 Colorectal Cancer Screening: Colonoscopy 2002 Colorectal Cancer Screening: Sigmoidoscopy 2002 Hepatitis B Vaccine (1 of 3 - Risk 3-dose series) 2013 11/06/2010, 09/29/2005, 07/16/2005, Additional history exists Diabetes: Ophthalmology Exam 11/18/2020 Diabetes: Pedal Pulse Checked 11/18/2020 Diabetes: Sensory Foot Exam 11/18/2020 Diabetes: Visual Foot Exam 11/18/2020 Diabetes: Hemoglobin A1C 03/14/2025 025, 11/13/2024, 07/07/2024, Additional history exists Pneumococcal Vaccine: 50+ Years Completed 04/18/2020, 12/29/2014, 10/25/2014, Additional history exists Procedures Procedure Name Priority Date/Time Associated Diagnosis Comments IRON PANEL (FE, TIBC, TSAT) Routine 01/04/2025 12:29 PM EDT Stage 3a chronic kidney disease (HCC) Essential (primary) hypertension FERRITIN Routine 01/04/2025 12:29 PM EDT Stage 3a chronic kidney disease (HCC) Essential (primary) hypertension PROTEIN / CREATININE RATIO, URINE Routine 01/04/2025 12:29 PM EDT Stage 3a chronic kidney disease (HCC) Essential (primary) hypertension RENAL FUNCTION PANEL Routine 01/04/2025 12:29 PM EDT Stage 3a chronic kidney disease (HCC) Essential (primary) hypertension PTH, INTACT Routine 01/04/2025 12:29 PM EDT Stage 3a chronic kidney disease (HCC) Essential (primary) hypertension CBC Routine 01/04/2025 12:29 PM EDT Stage 3a chronic kidney disease (HCC) Essential (primary) hypertension HEMOGLOBIN A1C Routine 07/07/2024 7:43 AM EDT from Last 3 Months or Most Recently Relevant to Health Maintenance Results * Iron Panel (Fe, TIBC, TSAT) (01/04/2025 12:29 PM EDT) TIBC 412 250 - 450 ug/dL [facility] UIBC 328 111 - 343 ug/dL [facility] Iron 84 38 - 169 ug/dL [facility] Iron Saturation (TSat) 20 15 - 55 % [facility] Blood (Blood, Venous) 01/04/2025 12:29 PM EDT 01/04/2025 La Roberson [facility] LAB BLOOD ORDERABLES Final Result [facility] [address] [place] [address] * (ABNORMAL) Urine Protein / creatinine ratio (01/04/2025 12:29 PM EDT) Creatinine, Ur 81.6 Not Estab. mg/dL [facility] Protein, Ur 16.4 Not Estab. mg/dL [facility] Urine Protein/Creati nine Ratio 201(H) 0 - 200 mg/g creat [facility] Urine (Urine, Clean Catch) 01/04/2025 12:29 PM EDT 01/04/2025 La Roberson [facility] LAB URINE ORDERABLES Final Result [facility] [address] [place] [address] * CBC (01/04/2025 12:29 PM EDT) WBC 7.7 3.4 - 10.8 x10E3/uL [facility] RBC 5.32 4.14 - 5.80 x10E6/uL [facility] Hemoglobin 15.0 13.0 - 17.7 g/dL [facility] Hematocrit 46.4 37.5 - 51.0 % [facility] MCV 87 79 - 97 fL [facility] MCH 28.2 26.6 - 33.0 pg [facility] MCHC 32.3 31.5 - 35.7 g/dL [facility] RDW 14.4 11.6 - 15.4 % [facility] Platelets 182 150 - 450 x10E3/uL [facility] Blood (Blood, Venous) 01/04/2025 12:29 PM EDT 01/04/2025 La Roberson [facility] LAB BLOOD ORDERABLES Final Result [facility] [address] [place] [address] * PTH, intact (01/04/2025 12:29 PM EDT) Pathologist [facility] PTH 23 15 - 65 pg/mL [facility] Blood (Blood, Venous) 01/04/2025 12:29 PM EDT 01/04/2025 [facility] LAB BLOOD ORDERABLES Final Result [facility] [address] [place] [address] * (ABNORMAL) Ferritin (01/04/2025 12:29 PM EDT) Pathologist [facility] Ferritin 18(L) 30 - 400 ng/mL [facility] Blood (Blood, Venous) 01/04/2025 12:29 PM EDT 01/04/2025 [facility] LAB BLOOD ORDERABLES Final Result Performing Organization Address City/[facility]/ZIP Co de Phone Number [facility] [address] [place] [address] * (ABNORMAL) Renal function panel (01/04/2025 12:29 PM EDT) Pathologist [facility] Glucose 155(H) 70 - 99 mg/dL [facility] BUN 19 8 - 27 mg/dL [facility] Creatinine 1.18 0.76 - 1.27 mg/dL [facility] eGFR CKD-EPI CR 2020 66 >59 mL/min/1.7 3 [facility] BUN/Creatinine Ratio 16 10 - 24 [facility] Sodium 139 134 - 144 mmol/L [facility] Potassium 4.6 3.5 - 5.2 mmol/L [facility] Chloride 99 96 - 106 mmol/L [facility] Bicarbonate (CO2) 20 20 - 29 mmol/L [facility] Calcium 10.5(H) 8.6 - 10.2 mg/dL [facility] Comment:Verified by repeat analysis Albumin 5.0(H) 3.8 - 4.8 g/dL [facility] Phosphorus 2.5(L) 2.8 - 4.1 mg/dL [facility] Blood (Blood, Venous) 01/04/2025 12:29 PM EDT 01/04/2025 [place] LAB BLOOD ORDERABLES Final Result [facility] [address] [place] [address] * (ABNORMAL) Hemoglobin A1c (07/07/2024 7:43 AM EDT) Hemoglobin A1C 9.1(H) 4.8 - 5.6 % [facility] Comment: ? Prediabetes: 5.7 - 6.4 ? Diabetes: >6.4 ? Glycemic control for adults with diabetes: <7.0 07/07/2024 7:43 AM EDT 07/07/2024 Pastora Ron MD LAB BLOOD ORDERABLES Final Result [facility] [address] [place] [address] from Last 3 Months or Most Recently Relevant to Health Maintenance Insurance [facility] ([id number]) [facility] ([id number]) Care Teams Telegraphic Typewriter Repairer Relationship Specialty Start Date End Date La Chavez DO [address] [place] [id number] PCP - General Family Medicine 06/16/23
== END 2025-01-25 10:11 | disposition home or self-care (01) ==
LOC: HO.HUSH 09:03
PROVIDERS: PCP Family Medicine; Visit Provider Nurse Practitioner Family
DX: R35.0 Frequency of micturition (principal); R35.1 Nocturia; Z13.9 Encounter for screening, unspecified
CPT/HCPCS: 99203

== ENCOUNTER → 2025-01-25 09:02 | Outpatient (BNVA) | payer OTHER, SELFPAY | PROVIDERS: PCP Family Medicine; Visit Provider Nurse Practitioner Family | DX: R35.0 Frequency of micturition (principal); R35.1 Nocturia; N39.41 Urge incontinence; E11.9 Type 2 diabetes mellitus without complications | CPT/HCPCS: 51798; 81003; 99202 ==

== ENCOUNTER 2025-04-16 10:15 | Outpatient (REF) | payer OTHER, SELFPAY ==
--- NOTE | ~2025-04-16 | US_ITS ---
CLINICAL HISTORY: R35.0 - Frequency of micturition Ultrasound kidneys. COMPARISON: None provided. Technique: Real time sonographic imaging, including color-flow imaging, was performed by the strategy consultant. Multiple employment program representative static images were saved for review. FINDINGS: Right kidney: Cortical medullary differentiation is maintained. Normal color flow by Doppler. Question small echogenic focus present along the superior medial aspect of the right kidney measuring approximately 0.6 cm without posterior acoustic shadowing. This may be artifactual or represent a small angiomyolipoma. No hydronephrosis. Right kidney size: 10.4 x 5.4 x 4.5 cm Left kidney: Cortical medullary differentiation is maintained. Normal color flow by Doppler. No calculus or focal parenchymal abnormality identified. No hydronephrosis. Left kidney size: 9.9 x 5.2 x 3.8 cm The urinary bladder is unremarkable. Bilateral ureteral jets visualized. Prevoid volume: 236 mL Postvoid volume: 73 mL Prostate is normal in size measuring 3.8 x 2.3 x 4.0 cm. IMPRESSION: 1. No evidence of renal obstruction. 2. Question small angiomyolipoma at the superior pole of the right kidney. This document has been electronically signed by: Hermelindo Rowland MD on 04/17/2025 14:35:45
--- OUTSIDE RECORDS SUMMARY | 2025-04-16 10:52 | XMS_ITS | Clinical Summary ---
Author Organization [facility] Address [address] [phone] Phone Care Team Providers Care Hand Pattern Marker Name Role Phone La Chavez DO Primary [...] not crush or chew. 90 tablet 3 5 03/27/20 26 Active metoprolol succinate XL (Toprol XL) 25 MG 24 hr tablet Take 1 tablet (25 mg total) by mouth 1 (one) time each day Do not crush or chew. 90 tablet 3 4 03/27/20 25 Discontinu ed(Reorder (does not appear on AVS)) Active Problems Problem Noted Date Diagnosed Date Chronic kidney disease 06/16/2023 Essential (primary) hypertension 06/16/2023 HIV positive 06/16/2023 Type 2 diabetes mellitus 06/16/2023 Encounters Date Type Department Care Team Description 03/27/2025 Refill [facility] [address] [phone] David Santamaria 02/04/2025 Orders Only [facility] [address] [phone] La Roberson ARNP Stage 3a chronic kidney disease (HCC); Hypercalcemia from Last 3 Months Family History Medical [...] Care Team (Late st Contact Info) Description 07/11/2025 8:30 AM EDT Office Visit [facility] [address] [phone] La RobersonCHAD [address] [phone] Health Maintenance Due Date Last [...] Completed 04/18/2020, 12/29/2014, 10/25/2014, Additional history exists Pneumococcal Vaccine: Peds ( 0 to 5 Years) and At-Risk Patients (6 to 49 Years) Discontinued 04/18/2020, 12/29/2014, 10/25/2014, Additional history exists Procedures Procedure Name Priority Date/Time Associated Diagnosis Comments HEMOGLOBIN A1C Routine 07/07/2024 7:43 AM EDT from Last 3 Months or Most Recently Relevant to Health Maintenance Results * (ABNORMAL) Hemoglobin A1c (07/07/2024 7:43 AM EDT) Hemoglobin A1C 9.1(H) 4.8 - 5.6 % [facility] Comment: Prediabetes: 5.7 - 6.4 Diabetes: >6.4 Glycemic control for adults with diabetes: <7.0 07/07/2024 7:43 AM EDT 07/07/2024 Pastora Ron MD LAB BLOOD ORDERABLES Final Result [facility] [address] [place] [address] from Last 3 Months or Most Recently Relevant to Health Maintenance Insurance [facility] ([id number]) [facility] ([id number]) Care Teams Hand Pattern Marker Relationship Specialty Start Date End Date La Chavez DO [address] [place] [address] PCP - General Family Medicine 06/16/23
== END 2025-04-16 10:16 | disposition home or self-care (01) ==
LOC: HO.US 10:15
PROVIDERS: PCP Family Medicine; Visit Provider Nurse Practitioner Family
DX: R35.0 Frequency of micturition (principal); R35.1 Nocturia
CPT/HCPCS: 76770

== ENCOUNTER → 2025-04-16 10:17 | Outpatient (BNV) | payer OTHER, SELFPAY | PROVIDERS: PCP Family Medicine; Visit Provider Radiology Diagnostic Radiology | DX: M48.061 Spinal stenosis, lumbar region without neurogenic claudication (principal) | CPT/HCPCS: 76770 ==

== ENCOUNTER 2025-04-25 11:13 | Outpatient (AMB) | payer OTHER, SELFPAY ==
--- NOTE | 2025-04-25 11:25 | MHC.OFFVIS ---
Intake Visit Reasons: 3m/US/PVR(set) Intake Note: Patient presents today for follow up on: urinary frequency Urology Medications: none Blood Thinner: aspirin PVR: 0ml's Pet Care Technician Required: No Accompanied by: Self / Same As Patient Allergies amoxicillin (Amoxicillin) Allergy (Mild, Verified 04/25/25 13:05) RASH Penicillins Allergy (Mild, Verified 04/25/25 13:05) RASH sulfamethoxazole (From BACTRIM) Allergy (Unknown, Verified 04/25/25 13:05) UNKNOWN trimethoprim (From BACTRIM) Allergy (Unknown, Verified 04/25/25 13:05) UNKNOWN atorvastatin (Lipitor) Adverse Reaction (Unknown, Verified 04/25/25 13:05) unk midodrine Allergy (Uncoded 04/25/25 13:05) Rash Medication List - Last Reconciled 04/25/25 by KAITLYNN Gomez- aspirin (Adult Aspirin Regimen) 81 mg PO BEDTIME xrmzxztpf-rwkqpwdp-wegjgwl ala 50-200-25 mg (Biktarvy) 1 tab PO BEDTIME diazepam (Valium) 5 mg PO BEDTIME PRN ezetimibe (Zetia) 10 mg PO DAILY 90 days insulin lispro (Humalog U-100 Insulin) subcut lamotrigine mg PO metoprolol succinate ER 12.5 mg PO QAM midodrine 2.5 mg PO TID morphine ER (MS Contin) 30 mg PO Q8H omega-3 fatty acids-fish oil 340-1,000 mg (Fish Oil) 2 caps PO QAM omeprazole 40 mg PO DAILY@0630 oxycodone 5 mg PO BID PRN pioglitazone 45 mg PO QAM tamsulosin 0.4 mg PO BEDTIME 30 days HPI Comments Details: Ventura his a 69-year-old male patient of Dr. Chavez who was accompanied by his significant other at today's office visit. He has a past medical history of HIV, depression, GERD, anemia, arthritis, chronic back pain, hyperlipidemia, hypertension, coronary artery disease, and right bundle branch block. He presents to the office today for follow-up of his lower urinary tract symptoms. Of note, patient was seen approximately 3 months ago as a new patient for ongoing issues with urinary frequency, urinary urgency, and nocturia. At which time a retroperitoneal ultrasound was ordered for further assessment evaluation. These results were reviewed and communicated with the patient and his significant other today. 04/11 no evidence of renal obstruction. Question small angiolipoma at the superior pole of the right kidney. Prostate measures approximately 20 mL. He discusses ongoing issues with potential seizures, back pain, and bilateral lower extremity pain. He discusses his recent hospitalization not here at [facility] for this ongoing issue and is further undergoing workup for potential seizures. He continues to experience episodes of urinary frequency and urgency as well as nocturia. He finds most bothersome urinary issue to be nocturia. When asked he does report potentially being diagnosed with sleep apnea in the past however is not absolutely sure. We did discussed further workup to include sleep study however he declines at this time. He continues to attempt to limit fluids prior to bed however does continue to experience episodes of nocturia anywhere between 2-5 times per night. In office urinalysis results reviewed with the patient today. PVR 0 mL. PSA 01/09 0.7. We discussed at length potential causes of lower urinary tract symptoms patient is experiencing as well as affects of uncontrolled diabetes on urinary issues as well as the bladder. We discussed importance of continuing to limit fluids 2-3 hours prior to bed and management and diabetes for improvement in lower urinary tract symptoms as well as overall health and well-being. He discusses his ongoing issues with neuropathy and balance. He otherwise offers no other issues or concerns at this time. [facility] Medical History HIV (human immunodeficiency virus infection) COVID-19 vaccine series completed Hx of major depression GERD (gastroesophageal reflux disease) History of anemia Arthritis Chronic back pain Colon cancer screening HLD (hyperlipidemia) HTN (hypertension) Old anterior myocardial infarction CAD (coronary artery disease) RBBB Surgical History History of right knee surgery History of neck surgery History of esophagogastroduodenoscopy (EGD) History of bilateral cataract extraction Hx of colonoscopy Stented coronary artery Family History Father No problems noted. Mother No problems noted. Social History Are you a primary critical care cns to a significant other at home: No Do you presently have visiting nurse or other home services: No Alcohol intake: unknown Patient Tobacco Use Status: Never used Tobacco Advance Directives Date on File: 10/06/21 Review of Systems Eyes Reports no additional complaints ENT Reports no additional complaints Card Reports as per [facility] Resp Reports no additional complaints GI Reports as per [facility] Reports as per [facility] Musc Reports as per [facility] Neuro Reports as per [facility] Psych Reports as per [facility] Endo Reports as per [facility] Ricardo/Lymph Reports as per [facility] Aller/Immun Reports as per [facility] Physical Exam Const General: cooperative, healthy appearing, comfortable, no acute distress, well developed, alert and awake Orientation/consciousness: patient oriented x3 Limitations: wheelchair HEENT Head: Yes normal to inspection, Yes normocephalic and Yes atraumatic Ears: hearing grossly normal bilaterally Eyes General: appearance normal, both eyes and all related structures Neck Neck: Yes normal visual inspection and Yes trachea midline Chest Chest palpation & inspection: normal inspection of the chest Resp Effort & Inspection: normal respiratory effort and able to speak in complete sentences Cardio Rate: regular rate GI Inspection: Yes normal to inspection General: Yes no CVA tenderness Back/Spine/Pelvis Back: no CVA tenderness Skin General skin exam: no rashes or lesions noted Neuro General: patient oriented x3 Extrem General: Yes normal to inspection Psych Appearance: grossly normal and well kempt Mental Status: mental status grossly normal Speech and movement: Normal speech and movement present and Clear speech present Affect: normal affect Attitude: cooperative Thought process: Normal thought process present Thought content: Normal thought content present Insight: Fair insight present (Psych) Judgement: Fair judgement present (Psych) Office Procedures Post Void Residual Post Residual Void Post Void Residual (PVR): 0 [id number] Void Residual by ultrasound Results AMB Urinalysis, Automated UA Leukoctes 0 [place]/uL Last Edit by TRACI Wright on 04/25/25 12:10 UA Nitrite Last Edit by TRACI Wright on 04/25/25 12:10 UA Urobilinogen 0.2 mg/dL Last Edit by TRACI Wright on 04/25/25 12:10 UA Protein 0 mg/dL Last Edit by TRACI Wright on 04/25/25 12:10 UA pH 6.5 Last Edit by TRACI Wright on 04/25/25 12:10 UA Blood 0 Leon/uL Last Edit by Nuvia White [facility] on 04/25/25 12:10 UA Specific Wolf 1.010 Last Edit by Nuvia White [facility] on 04/25/25 12:10 UA Ketone Last Edit by Nuvia White [facility] on 04/25/25 12:10 UA Bilirubin 0 mg/dL Last Edit by Nuvia White [facility] on 04/25/25 12:10 UA Glucose 1000 mg/dL Last Edit by Nuvia White [facility] on 04/25/25 12:10 Results Reviewed Results Reviewed: Laboratory Last Values Urine pH (Auto) 6.5 04/25/25 12:06 Specific Wolf (Auto) 1.010 04/25/25 12:06 Urine Protein (Auto) 0 mg/dL 04/25/25 12:06 Glucose (UA)(Auto) 1000 mg/dL 04/25/25 12:06 Urine Blood (Auto) 0 Leon/uL 04/25/25 12:06 Urine Bilirubin (Auto) 0 mg/dL 04/25/25 12:06 Urine Urobilinogen (Auto) 0.2 mg/dL 04/25/25 12:06 Leukocyte Esterase (Auto) 0 [place]/uL 04/25/25 12:06 Date of Service: 04/16/25 Procedure(s): US retroperitoneal comp FINDINGS: Right kidney: Cortical medullary differentiation is maintained. Normal color flow by Doppler. Question small echogenic focus present along the superior medial aspect of the right kidney measuring approximately 0.6 cm without posterior acoustic shadowing. This may be artifactual or represent a small angiomyolipoma. No hydronephrosis. Right kidney size: 10.4 x 5.4 x 4.5 cm Left kidney: Cortical medullary differentiation is maintained. Normal color flow by Doppler. No calculus or focal parenchymal abnormality identified. No hydronephrosis. Left kidney size: 9.9 x 5.2 x 3.8 cm The urinary bladder is unremarkable. Bilateral ureteral jets visualized. Prevoid volume: 236 mL Postvoid volume: 73 mL Prostate is normal in size measuring 3.8 x 2.3 x 4.0 cm. IMPRESSION: 1. No evidence of renal obstruction. 2. Question small angiomyolipoma at the superior pole of the right kidney. Assessment & Plan Assessment & Plan (1) Urinary frequency: Code(s): R35.0 - Frequency of micturition Category: Medical (2) Nocturia: Code(s): R35.1 - Nocturia Category: Medical Plan In office urinalysis results reviewed with the patient today; as noted above. PVR 0 mL. Recent retroperitoneal ultrasound results reviewed with the patient today; as noted above. We did discussed potential for sleep apnea in correlation of sleep apnea and nocturia. He does not wish to undergo sleep study at this time. We discussed potential causes of lower urinary tract symptoms patient is experiencing as well as further treatment options and risks and benefits of these treatment options. Start Flomax as discussed and prescribed. We did discussed potential near future in office cystoscopy and or urodynamics for further assessment evaluation. We discussed continuing to manage diabetes and limit fluids 2-3 hours prior to bed to decrease episodes of nocturia. Follow-up in 1-3 months with PVR; or sooner with any issues, concerns, and or questions. Orders: Orders AMB Urinalysis Automated Today Z13.9 - Encounter for screening, unspecified AMB Post Void Residual by ultrasound Today R35.0 - Frequency of micturition Medications: New tamsulosin 0.4 mg PO BEDTIME 30 caps 3RF 30 days N40.1 - Benign prostatic hyperplasia with lower urinary tract symptoms, R35.1 - Nocturia Patient Instructions: The patient had an opportunity to ask questions regarding the treatment plan. All questions were answered. Physical exam, labs, and imaging were discussed and reviewed in detail. As well as risks, benefits, and discussion of treatment choices. No major barriers to understanding were identified. The patient expressed understanding and agreement with the above treatment plan. The patient was made aware they should contact our office by phone for worsening of their current condition, the appearance of new symptoms, or with any questions or concerns. Compliance is encouraged with any medications and follow up testing that is ordered. It is a privilege to be allowed the opportunity to participate in? your urological care.? Again, if you have any questions or concerns If you have any questions or concerns please do not hesitate to contact me. The office is [phone]. This note is constructed using voice recognition software. While every effort has been made to ensure accuracy music theory teacher errors may have been included. Yours sincerely, KAITLYNN Gomez-BC Coding Level of Care Code Est Pt Level 4 (38660) Complex EM visit Add On G2211 Diagnoses Urinary frequency R35.0 Nocturia R35.1 CPT Codes Post Residual Void - PVR CPT Code: 68243-Qfwu Void Residual by ultrasound ([id number])
--- OUTSIDE RECORDS SUMMARY | 2025-04-25 12:28 | XMS_ITS | Clinical Summary ---
Author Organization [facility] Address [address] [phone] Phone Care Team Providers Care Sports Medicine Trainer Name Role Phone La Chavez DO Primary [...] 03/27/2025 Refill [facility] [address] [phone] David Santamaria 02/04/2025 Orders Only [facility] [address] [phone] La Roberson ARNP Stage 3a chronic kidney [...] Care Team (Late st Contact Info) Description 05/18/2025 Orders Only [facility] [address] [phone] La Roberson ARNP [address] [phone] Stage 3a chronic kidney disease (HCC); Essential (primary) hypertension; Hypercalcemia 07/11/2025 8:30 AM EDT Office Visit [facility] [address] [phone] La RobersonCHAD [address] [phone] Health Maintenance Due Date Last [...] A1C 9.1(H) 4.8 - 5.6 % [facility] Comment: Prediabetes: 5.7 - 6.4 Diabetes: >6.4 Glycemic control for adults with diabetes: <7.0 07/07/2024 7:43 AM EDT 07/07/2024 Pastora Ron MD LAB BLOOD ORDERABLES Final Result [facility] [address] [place] [phone] from Last 3 Months or Most Recently Relevant to Health Maintenance Insurance [facility] ([id number]) [place]SCOMB [id number] [facility] ([id number]) Care Teams Sports Medicine Trainer Relationship Specialty Start Date End Date La Chavez DO [address] [place] [address] PCP - General Family Medicine 06/16/23
== END 2025-04-25 12:05 | disposition home or self-care (01) ==
LOC: HO.HUSH 11:13
PROVIDERS: PCP Family Medicine; Visit Provider Nurse Practitioner Family
DX: R35.0 Frequency of micturition (principal); R35.1 Nocturia; Z13.9 Encounter for screening, unspecified
CPT/HCPCS: 99214; G2211

== ENCOUNTER → 2025-04-25 11:13 | Outpatient (BNVA) | payer OTHER, SELFPAY | PROVIDERS: PCP Family Medicine; Visit Provider Nurse Practitioner Family | DX: Z71.2 Person consulting for explanation of examination or test findings (principal); R35.0 Frequency of micturition; R35.1 Nocturia; M54.50 Low back pain, unspecified | CPT/HCPCS: 51798; 81003; 99212 ==

== ENCOUNTER 2025-07-05 08:42 | Outpatient (AMB) | payer OTHER, SELFPAY ==
[2025-07-05 09:00] VITALS: BP 110/56; PULSE 74; BMI 24.1
--- NOTE | 2025-07-05 09:00 | A.OFFVIS_ITS ---
Vital Signs 07/05/25 09:00 Height 5 ft 4 in Weight 140 lb 10.479 oz BMI 24.1 BP 110/56 L Blood Pressure Location Lt brachial Position Sitting Pulse 74 Pulse Source Monitor Intake Visit Reasons: 9 mth f/up Intake Note: 9mth f/up Work And Family Life Consultant Required: No Beer Still Runner Compounder: Beer Still Runner Compounder Present Accompanied by: Self / Same As Patient Allergies amoxicillin (Amoxicillin) Allergy (Mild, Verified 04/25/25 13:05) RASH Penicillins Allergy (Mild, Verified 04/25/25 13:05) RASH sulfamethoxazole (From BACTRIM) Allergy (Unknown, Verified 04/25/25 13:05) UNKNOWN trimethoprim (From BACTRIM) Allergy (Unknown, Verified 04/25/25 13:05) UNKNOWN atorvastatin (Lipitor) Adverse Reaction (Unknown, Verified 04/25/25 13:05) unk midodrine Allergy (Uncoded 04/25/25 13:05) Rash Medication List - Last Reconciled 07/05/25 by Viviana Gurrola NP-C aspirin (Adult Aspirin Regimen) 81 mg PO BEDTIME yfsbwwfci-ijjifbeh-bfsylrt ala 50-200-25 mg (Biktarvy) 1 tab PO BEDTIME diazepam (Valium) 5 mg PO BEDTIME PRN ezetimibe (Zetia) 10 mg PO DAILY 90 days insulin lispro (Humalog U-100 Insulin) subcut lamotrigine mg PO metoprolol succinate ER 12.5 mg PO QAM midodrine 2.5 mg PO TID morphine ER (MS Contin) 30 mg PO Q8H omega-3 fatty acids-fish oil 340-1,000 mg (Fish Oil) 2 caps PO QAM omeprazole 40 mg PO DAILY@0630 oxycodone 5 mg PO BID PRN pioglitazone 45 mg PO QAM HPI HPI 9 mth f/up: Details: Ventura is a 69-year-old male with past medical history of hypertension, hyperlipidemia, coronary artery disease, bifascicular block, orthostatic syncope who presents for follow-up. Today he reports that since his last visit he was hospitalized twice with seizures. Since then he has had increased weakness and ambulates with a walker. He is mostly sedentary. He has had some lightheadedness in his back on midodrine. He now states he was incorrect that midodrine did not give him a rash like he previously thought. No presyncope, syncope, falls. He trying maintain good hydration. He does not add salt to his diet because he does not like how it tastes. He has mobility issues with leg unsteadiness. He always uses caution when changing positions and when going sitting to standing. No chest discomfort at rest or with activity. No concerning shortness of breath, PND orthopnea or edema. Taking meds as directed. Significant other present. [facility] Medical History HIV (human immunodeficiency virus infection) COVID-19 vaccine series completed Hx of major depression GERD (gastroesophageal reflux disease) History of anemia Arthritis Chronic back pain Colon cancer screening HLD (hyperlipidemia) HTN (hypertension) Old anterior myocardial infarction CAD (coronary artery disease) RBBB Surgical History History of right knee surgery History of neck surgery History of esophagogastroduodenoscopy (EGD) History of bilateral cataract extraction Hx of colonoscopy Stented coronary artery Family History Father No problems noted. Mother No problems noted. Social History Are you a primary school child care attendant to a significant other at home: No Do you presently have visiting nurse or other home services: No Alcohol intake: unknown Patient Tobacco Use Status: Never used Tobacco Advance Directives Date on File: 10/06/21 Review of Systems Const All systems reviewed & are unremarkable except as noted in HPI and below Denies chills, Denies fatigue, Denies fever(s), Denies frequent falls, Reports weakness, Denies weight gain and Denies weight loss ENT Denies dizziness Card Denies chest pain, Denies leg edema, Denies lightheadedness, Denies palpitations, Denies dyspnea and Denies dyspnea on exertion Resp Denies cough, Denies dyspnea and Denies dyspnea on exertion GI Denies hematochezia Musc Reports abnormal gait (uses walker), Reports muscle weakness, Denies numbness, Denies radiating pain into limb and Denies tingling Neuro Reports abnormal gait (uses walker), Denies dizziness, Denies frequent falls, Denies numbness, Denies tingling and Reports weakness Endo Denies fatigue and Denies palpitations Physical Exam Vital Signs: Last Vital Signs Pulse 74 07/05/25 09:00 BP 110/56 L 07/05/25 09:00 BMI result Body Mass Index 24.1 Const Other: frail elderly General: cooperative, comfortable and no acute distress Orientation/consciousness: patient oriented x3 Neck Neck: Yes normal visual inspection and Yes no JVD Resp Effort & Inspection: normal respiratory effort Auscultation: clear to auscultation bilaterally, no rales, no rhonchi and no wheezes Cardio Jugular venous distension: no JVD Rate: regular rate Rhythm: regular rhythm Heart sounds: S1 normal heart sound present, S2 normal heart sound present, no murmurs and no rubs Neuro General: patient oriented x3 Extrem General: Yes normal to inspection and No no pedal edema Psych Appearance: grossly normal Mental Status: mental status grossly normal Speech and movement: Normal speech and movement present Office Procedures EKG Details: Today, read by me, normal sinus rhythm, left axis deviation, right bundle branch block, moderate voltage for LVH, rate 74, QTC 483 milliseconds [id number], Complete Assessment & Plan Assessment & Plan (1) Orthostatic syncope: Code(s): I95.1 - Orthostatic hypotension Category: Medical Plan: History of orthostatic syncope, currently controlled without recent episodes. He is on midodrine 2.5 mg t.i.d. and reports maintaining good hydration. Last echo 05/02/2021 showing EF 55-60%, normal RV, no significant valve abnormalities. Reviewed the need to drink at least 64 oz daily. He dislikes the taste of salt and does not add it to his food. Informed him that liberal use of salt would help to keep his blood pressure more elevated. He continues to take metoprolol at night. No med changes made. Cardiology follow-up in 6 months, sooner if needed. (2) HTN (hypertension): Code(s): I10 - Essential (primary) hypertension Category: Medical Plan: Blood pressure goal less than 130/80. Normal at this time. No med changes made. (3) CAD (coronary artery disease): Code(s): I25.10 - Atherosclerotic heart disease of elem coronary artery without angina pectoris Category: Medical Plan: History of CAD with remote LAD stent. No reports of anginal sounding symptoms. Signs and symptoms of angina reviewed with him. Continue aspirin indefinitely. Continue Zetia, metoprolol. (4) HLD (hyperlipidemia): Code(s): E78.5 - Hyperlipidemia, unspecified Category: Medical Plan: [place] LDL goal less than 70. He is not on statin for unclear reason but is on Zetia. Labs done 05/22/2024 showed LDL 20. Can continue current treatment Plan We reviewed the need for good hydration and use of salt in his diet to help keep blood pressure from dropping. I discussed with the patient the importance of monitoring seizure activity and adhering to prescribed medications. We reviewed the nature of his chest pain and the need for further evaluation if symptoms change or worsen. I advised on the importance of recognizing symptoms similar to his previous myocardial infarction and seeking immediate care if they occur. Patient Instructions: - Continue taking all prescribed medications as directed. - Monitor for any changes in seizure activity or chest pain. - Seek immediate medical attention if symptoms similar to a heart attack occur. - Follow up with your primary care doctor as scheduled. Patient was informed and verbally consented to the use of an ambient scribe for clinic note documentation during this visit. Visit time spent on chart review, interview, assessment, orders, documentation. Coding Level of Care Code Est Pt Level 4 (30150) Complex EM visit Add On G2211 Diagnoses Orthostatic syncope I95.1 HTN (hypertension) I10 CAD (coronary artery disease) I25.10 HLD (hyperlipidemia) E78.5 CPT Codes EKG - CPT: 55080-[id number], Complete ([id number]) Time Spent (min) 30
== END 2025-07-05 09:25 | disposition home or self-care (01) ==
LOC: HO.HCS 08:43
PROVIDERS: PCP Family Medicine; Visit Provider Nurse Practitioner Family
DX: I95.1 Orthostatic hypotension (principal); I10 Essential (primary) hypertension; I25.10 Atherosclerotic heart disease of native coronary artery without angina pectoris; E78.5 Hyperlipidemia, unspecified
CPT/HCPCS: 93010; 99214; G2211

== ENCOUNTER → 2025-07-05 08:42 | Outpatient (BNVA) | payer OTHER, SELFPAY | PROVIDERS: PCP Family Medicine; Visit Provider Nurse Practitioner Family | DX: I95.1 Orthostatic hypotension (principal); I25.10 Atherosclerotic heart disease of native coronary artery without angina pectoris; I10 Essential (primary) hypertension; I45.10 Unspecified right bundle-branch block; E78.5 Hyperlipidemia, unspecified | CPT/HCPCS: 93005; 99212 ==

== ENCOUNTER 2025-07-10 14:19 | Outpatient (REF) | payer OTHER, SELFPAY ==
[2025-07-10 16:20] LABS: MANUAL DIFF FLAG NO
[2025-07-10 16:34] LABS: Hematocrit 41.8 % (42.0-52.0); Hemoglobin 12.9 g/dl (14.0-18.0); Imm Gran Abs Auto 0.03 X10*3/uL (0.00-0.03); Imm Gran Pct Auto 0.4 % (0.0-0.4); Lymphocytes Absolute Auto 2.2 X10*3/uL (1.2-4.9); Mean Corpuscular HGB Conc 30.9 g/dl (31.0-36.0); Mean Corpuscular Hemoglobin 28.3 pg (27.0-33.0); Mean Corpuscular Volume 91.7 fL (80.0-98.0); NRBC Abs Auto 0.000 X10*3/uL (0.0-0.012); NRBC Pct Auto 0.0 /100WBC (0.0-0.2); Platelet Count 204 X10*3/uL (160-400); Red Blood Count 4.56 X10*6/uL (4.60-5.80); White Blood Count 7.0 X10*3/uL (4.8-10.8)
[2025-07-10 16:59] LABS: Alanine Aminotransferase 37 U/L (0-40); Albumin Level 4.5 g/dL (3.5-5.0); Alkaline Phosphatase 71 U/L (39-117); Anion Gap 12 (12-20); Aspartate Amino Transferase 32 U/L (5-37); Blood Urea Nitrogen 27 mg/dL (9-16); Calcium 9.4 mg/dL (8.4-10.2); Carbon Dioxide 26 mmol/L (22-29); Chloride 105 mmol/L (96-108); Estimated Glomerular Filt Rate 54; Potassium 4.8 mmol/L (3.3-5.1); Sodium 138 mmol/L (135-145); Total Protein 7.6 g/dL (6.5-8.0)
--- OUTSIDE RECORDS SUMMARY | 2025-07-10 17:35 | XMS_ITS | Clinical Summary ---
Author Organization [facility] Address [address] [place] [phone] Phone Care Team Providers Care Supervisor Rice Milling Name Role Phone Pcp, Unknown Primary Care Provider Unavailabl e Allergies Active Allergy Reactions Criticality Noted Date Comments Amoxicillin 11/30/2021 Sulfamethoxazole-Trimethoprim 2021 Influenza Virus Vaccines 11/30/2021 Penicillins 11/30/2021 Pravastatin 11/30/2021 Medications diazePAM (VALIUM) 5 MG tablet Take 5 mg by mouth nightly at bedtime as needed for insomnia. Active baclofen (LIORESAL) 10 MG tablet Take 20 mg by mouth 3 (three) times a day as needed for spasm. Active aspirin 81 mg chewable tablet Take 81 mg by mouth daily. Active bictegravir-emtr icitabine-tenofo vir alafenamide (BIKTARVY) 50-200-25 mg per tablet Take 1 tablet by mouth nightly at bedtime. Active insulin glargine (LANTUS, BASAGLAR) 100 unit/mL (3 mL) InPn injection pen Inject 24 Units under the skin nightly at bedtime. Active omega 7-uro-wmp-fish oil 1,000 mg (120 mg-180 mg) Cap Take 1 capsule by mouth daily. Active lidocaine 4 % Place 1 patch onto the skin 2 (two) times a day. Active ezetimibe (ZETIA) 10 mg tablet Take 10 mg by mouth daily. Active glipiZIDE (GLUCOTROL) 10 MG tablet Take 20 mg by mouth 2 (two) times a day before meals. Active metoprolol succinate (TOPROL-XL) 25 MG 24 hr tablet Take 25 mg by mouth daily. Active omeprazole (PRILOSEC) 40 MG capsule Take 40 mg by mouth daily. Active oxyCODONE 5 MG immediate release tablet Take 5 mg by mouth every 6 (six) hours as needed. 1 tab for moderate pain, 2 tabs for severe pain Active morphine (MS CONTIN) 30 MG ER tablet Take 30 mg by mouth 2 (two) times a day. Active senna (SENOKOT) 8.6 mg tablet Take 2 tablets by mouth nightly at bedtime. Active docusate sodium (COLACE) 100 MG capsule Take 200 mg by mouth daily. Active polyethylene glycol (MIRALAX) 17 gram packet Take 17 g by mouth daily. Active Social History Tobacco Use Types Packs/Day Years Used Date Smoking Tobacco: Never Assessed Education Answer Date Recorded Are you interested in more education? Not on maria alejandra e 02/13/2023 Are you concerned about learning? Not on file 02/13/2023 No 02/13/2023 No 02/13/2023 Digital Access Answer Date Recorded No 03/16/2023 No 03/16/2023 Reliable internet access at home? Not on file 03/16/2023 Device with a working camera? Not on file Sex and Gender Information Value Date Recorded Sex Assigned at Not on file Legal Sex Male 11:28 AM EST Gender Identity Not on file Sexual Orientation Not on file Plan of Treatment Health Maintenance Due Date Last Done Comments Adult Td,Tdap Booster 1953 LIPID PANEL 1953 DEPRESSION SCREENING 1965 SMOKING Hx and SMOKELESS TOB ACCO SCREENING 1966 HEPATITIS C SCREENING 12/29/1971 COLOGUARD 1998 COLONOSCOPY 1998 COLORECTAL CANCER SCREENING 1998 FIT TEST 1998 FOBT 1998 SIGMOIDOSCOPY 1998 VIRTUAL COLONOSCOPY 1998 PNEUMOCOCCAL VACCINES (50+ y ears) (1 of 1 - PCV) 12/29/2003 ZOSTER VACCINES (1 of 2) 12/29/2003 COVID-19 VACCINE ( - 2023-2 5 season) 2025 RSV VACCINE (1 - 1-dose 75+ series) 2028 HEPATITIS A VACCINES Aged Out No long er eligible based on patient's age to complete this topic HIB VACCINES Aged Out No longer eligi ble based on patient's age to complete this topic MENINGOCOCCAL VACCINES (ACWY) Aged Out No longer eligible based on patient's age to complete this topic MENINGOCOCCAL VACCINES (B) Aged Out N o longer eligible based on patient's age to complete this topic Medical Devices [place] [address] MEDICARE PART A & B Care Teams Supervisor Rice Milling Relationship Specialty Start Date End Date Pcp, Unknown PCP - General 11/28/21 Additional Source Comments The information contained in this document represents components of the legal health record. It is not the complete legal health record.[facility]
--- OUTSIDE RECORDS SUMMARY | 2025-07-10 17:35 | XMS_ITS | Clinical Summary ---
Author Organization [facility] Address [address] [phone] Phone Care Team Providers Care Surface Supply Breathing Apparatus Name Role Phone La Chavez DO Primary [...] not crush or chew. 90 tablet 3 03/27/2025 06/10/202 6 Active Active Problems Problem Noted Date Diagnosed Date Chronic kidney disease 06/16/2023 Essential (primary) hypertension 06/16/2023 HIV positive 06/16/2023 Type 2 diabetes mellitus 06/16/2023 Encounters Date Type Department Care Team Description 05/18/2025 Orders Only [facility] [address] [phone] La Roberson ARNP Stage 3a chronic kidney disease (HCC); Essential (primary) hypertension; Hypercalcemia from Last 3 Months Family History [...] Office Visit [facility] [address] [phone] La Roberson ARNP [address] [phone] Health Maintenance Due Date Last Done Comments [...] Procedure Name Priority Date/Time Associated Diagnosis Comments PTH, INTACT Routine 07/09/2025 10:37 AM EDT Stage 3a chronic kidney disease (HCC) Essential (primary) hypertension Hypercalcemia URINE ALBUMIN / CREATININE RATIO Routine 07/09/2025 10:37 AM EDT Stage 3a chronic kidney disease (HCC) Essential (primary) hypertension Hypercalcemia PROTEIN / CREATININE RATIO, URINE Routine 07/09/2025 10:37 AM EDT Stage 3a chronic kidney disease (HCC) Essential (primary) hypertension Hypercalcemia CBC Routine 07/09/2025 10:37 AM EDT Stage 3a chronic kidney disease (HCC) Essential (primary) hypertension Hypercalcemia RENAL FUNCTION PANEL Routine 07/09/2025 10:37 AM EDT Stage 3a chronic kidney disease (HCC) Essential (primary) hypertension Hypercalcemia BASIC METABOLIC PANEL Routine 07/09/2025 10:36 AM EDT HEMOGLOBIN A1C Routine 07/07/2024 7:43 AM EDT from Last 3 Months or Most Recently Relevant to Health Maintenance Results * Urine Albumin / Creatinine Ratio (07/09/2025 10:37 AM EDT) Albumin, Urine 6.9 Not Estab. ug/mL [facility] Albumin/Creatin ine Ratio 8 0 - 29 mg/g creat [facility] Comment: Normal: 0 - 29 Moderately increased: 30 - 300 Severely increased: >300 Urine specimen (specimen) Urine specimen obtained by clean catch procedure / Unknown 07/09/2025 10:37 AM EDT 07/09/2025 La Da [facility] URINE ORDERABLES Final Result [facility] [address] [place] [address] * (ABNORMAL) CBC (07/09/2025 10:37 AM EDT) WBC 7.1 3.4 - 10.8 x10E3/uL [facility] RBC 4.49 4.14 - 5.80 x10E6/uL [facility] Hemoglobin 12.8(L) 13.0 - 17.7 g/dL [facility] Hematocrit 41.8 37.5 - 51.0 % [facility] MCV 93 79 - 97 fL [facility] MCH 28.5 26.6 - 33.0 pg [facility] MCHC 30.6(L) 31.5 - 35.7 g/dL [facility] RDW 13.8 11.6 - 15.4 % [facility] Platelets 212 150 - 450 x10E3/uL [facility] Blood specimen (specimen) Venous blood / Unknown 07/09/2025 10:37 AM EDT 07/09/2025 La Roberson [facility] BLOOD ORDERABLES Final Result [facility] [address] [place] [address] * PTH, intact (07/09/2025 10:37 AM EDT) PTH 21 15 - 65 pg/mL [facility] Blood specimen (specimen) Venous blood / Unknown 07/09/2025 10:37 AM EDT 07/09/2025 [facility] BLOOD ORDERABLES Final Result Performing Organization Address City/[facility]/ZIP Co de Phone Number [facility] [address] [place] [address] * (ABNORMAL) Renal function panel (07/09/2025 10:37 AM EDT) Glucose 198(H) 70 - 99 mg/dL [facility] BUN 27 8 - 27 mg/dL [facility] Creatinine 1.45(H) 0.76 - 1.27 mg/dL [facility] eGFR CKD-EPI CR 2020 52(L) >59 mL/min/1.7 3 [facility] BUN/Creatinine Ratio 19 10 - 24 [facility] Sodium 138 134 - 144 mmol/L [facility] Potassium 5.1 3.5 - 5.2 mmol/L [facility] Chloride 101 96 - 106 mmol/L [facility] Bicarbonate (CO2) 18(L) 20 - 29 mmol/L [facility] Calcium 10.0 8.6 - 10.2 mg/dL [facility] Albumin 4.6 3.8 - 4.8 g/dL [facility] Phosphorus 3.5 2.8 - 4.1 mg/dL [facility] Blood specimen (specimen) Venous blood / Unknown 07/09/2025 10:37 AM EDT 07/09/2025 La Roberson [facility] BLOOD ORDERABLES Final Result [facility] [address] [place] [address] * (ABNORMAL) Basic Metabolic Panel (07/09/2025 10:36 AM EDT) Glucose 203(H) 70 - 99 mg/dL [facility] BUN 28(H) 8 - 27 mg/dL [facility] Creatinine 1.46(H) 0.76 - 1.27 mg/dL [facility] eGFR CKD-EPI CR 2020 51(L) >59 mL/min/1.7 3 [facility] BUN/Creatinine Ratio 19 10 - 24 [facility] Sodium 138 134 - 144 mmol/L [facility] Potassium 5.2 3.5 - 5.2 mmol/L [facility] Chloride 100 96 - 106 mmol/L [facility] Bicarbonate (CO2) 16(L) 20 - 29 mmol/L [facility] Calcium 10.4(H) 8.6 - 10.2 mg/dL [facility] 07/09/2025 10:3 6 AM EDT 07/09/2025 La [place] LAB BLOOD ORDERABLES Final Result [facility] [address] [place] [phone] * (ABNORMAL) Hemoglobin A1c (07/07/2024 7:43 AM EDT) Hemoglobin A1C 9.1(H) 4.8 - 5.6 % [facility] Comment: Prediabetes: 5.7 - 6.4 Diabetes: >6.4 Glycemic control for adults with diabetes: <7.0 07/07/2024 7:43 AM EDT 07/07/2024 Pastora Rno MD LAB BLOOD ORDERABLES Final Result [facility] [address] [place] [phone] from Last 3 Months or Most Recently Relevant to Health Maintenance Insurance [facility] ([id number]) [facility] ([id number]) [place] [phone] Care Teams Surface Supply Breathing Apparatus Relationship Specialty Start Date End Date La Chavez DO [address] [place] [phone] PCP - General Family Medicine 06/16/23
[2025-07-12 07:54] LABS: HIV RNA PCR Qn Copies 246 copies/mL (NOT DETECTED); HIV RNA PCR Qn Log Copies 2.39 (NOT DETECTED)
== END 2025-07-10 14:20 | disposition home or self-care (01) ==
LOC: HO.HHCL 14:19
PROVIDERS: Internal Medicine; PCP Family Medicine; Visit Provider Family Medicine
DX: Z21 Asymptomatic human immunodeficiency virus [HIV] infection status (principal)
CPT/HCPCS: 36415; 80053; 85025; 86359; 86360; 87536

== ENCOUNTER 2025-08-13 08:43 | Outpatient (AMB) | payer OTHER, SELFPAY ==
--- NOTE | 2025-08-13 08:47 | A.OFFVIS_ITS ---
Vital Signs 08/13/25 08:48 Height 5 ft 4 in Weight 141 lb 8.588 oz BMI 24.3 BP 114/62 Blood Pressure Location Rt brachial Position Sitting Pulse 89 Pulse Source Pulse Oximeter Intake Visit Reasons: ED follow up Events And Promotions Assistant Required: No Allergies amoxicillin (Amoxicillin) Allergy (Mild, Verified 08/13/25 08:54) RASH Penicillins Allergy (Mild, Verified 08/13/25 08:54) RASH sulfamethoxazole (From BACTRIM) Allergy (Unknown, Verified 08/13/25 08:54) UNKNOWN trimethoprim (From BACTRIM) Allergy (Unknown, Verified 08/13/25 08:54) UNKNOWN atorvastatin (Lipitor) Adverse Reaction (Unknown, Verified 08/13/25 08:54) unk midodrine Allergy (Uncoded 08/13/25 08:54) Rash Medication List - Last Reconciled 08/13/25 by Viviana Gurrola NP-C aspirin (Adult Aspirin Regimen) 81 mg PO BEDTIME fdetynrgt-mnhtanpb-gkaijkq ala 50-200-25 mg (Biktarvy) 1 tab PO BEDTIME diazepam (Valium) 5 mg PO BEDTIME PRN ezetimibe (Zetia) 10 mg PO DAILY 90 days insulin lispro (Humalog U-100 Insulin) subcut lamotrigine mg PO metoprolol succinate ER 12.5 mg PO QAM midodrine 2.5 mg PO TID morphine ER (MS Contin) 30 mg PO Q8H omega-3 fatty acids-fish oil 340-1,000 mg (Fish Oil) 2 caps PO QAM omeprazole 40 mg PO DAILY@0630 oxycodone 5 mg PO BID PRN pioglitazone 45 mg PO QAM topiramate 50 mg PO BEDTIME HPI HPI ED follow up: Details: Ventura is a 69-year-old male with past medical history of hypertension, hyperlipidemia, coronary artery disease, bifascicular block, orthostatic syncope who was seen in the [facility] emergency room on 07/22/2025 for chest discomfort and seizure-like activity. He ruled out for ACS. He now presents for follow- up. - his last prior visit was 07/05/2025. Today he reports that he was seen in the ER twice since his last visit. On 1 occasion he went there for the chest discomfort. He points to an area in his right mid chest and tells me that he fell against his counter 6 months ago. At the time he did have significant bruising in that area. Since then he has had ongoing tenderness in that area to palpation. He states this is the discomfort he went to the ER for. Informed him this is noncardiac chest pain. He is w aiting to see a specialist for his seizure activity. He has an appointment in September and is hoping to get in sooner. His is present tells me that his seizures are not controlled. He continues to have generalized weakness and ambulates slowly with a walker. He has not had any recent falls. He has had some lightheadedness with position changes and takes his midodrine as directed. No concerning shortness of breath, PND, orthopnea or edema. He is trying to maintain good hydration. He does not add salt to his diet because he does not like how it tastes. Taking meds as directed. Significant other present. [facility] Medical History HIV (human immunodeficiency virus infection) COVID-19 vaccine series completed Hx of major depression GERD (gastroesophageal reflux disease) History of anemia Arthritis Chronic back pain Colon cancer screening HLD (hyperlipidemia) HTN (hypertension) Old anterior myocardial infarction CAD (coronary artery disease) RBBB Surgical History History of right knee surgery History of neck surgery History of esophagogastroduodenoscopy (EGD) History of bilateral cataract extraction Hx of colonoscopy Stented coronary artery Family History Father No problems noted. Mother No problems noted. Social History Are you a primary med care manager to a significant other at home: No Do you presently have visiting nurse or other home services: No Alcohol intake: unknown Patient Tobacco Use Status: Never used Tobacco Advance Directives Date on File: 10/06/21 Review of Systems Const All systems reviewed & are unremarkable except as noted in HPI and below ENT Reports dizziness Card Reports chest pain, Denies chest pain at rest, Denies chest pain with activity, Denies rapid heart rate, Denies pedal edema, Denies edema, Denies leg edema, Denies lightheadedness, Denies palpitations, Denies dyspnea, Reports dyspnea on exertion and Denies orthopnea Resp Denies cough, Denies dyspnea and Reports dyspnea on exertion GI Denies hematochezia and Denies change in stool character Musc Details: back pain, ambulates slowly with walker Reports abnormal gait, Denies limited range of motion, Denies muscle cramps, Reports muscle weakness, Denies numbness, Denies radiating pain into limb, Denies stiffness and Denies tingling Neuro Reports abnormal gait, Reports dizziness, Denies numbness and Denies tingling Endo Denies palpitations Physical Exam Vital Signs: Last Vital Signs Pulse 89 08/13/25 08:48 BP 114/62 08/13/25 08:48 BMI result Body Mass Index 24.3 Const Other: frail elderly General: cooperative, comfortable and no acute distress Orientation/consciousness: patient oriented x3 Neck Neck: Yes normal visual inspection and Yes no JVD Resp Effort & Inspection: normal respiratory effort Auscultation: clear to auscultation bilaterally, no rales, no rhonchi and no wheezes Cardio Jugular venous distension: no JVD Rate: regular rate Rhythm: regular rhythm Heart sounds: S1 normal heart sound present, S2 normal heart sound present, no murmurs and no rubs Neuro General: patient oriented x3 Extrem General: Yes normal to inspection and No no pedal edema Psych Appearance: grossly normal Mental Status: mental status grossly normal Speech and movement: Normal speech and movement present Assessment & Plan Assessment & Plan (1) Discomfort of chest wall: Code(s): R07.89 - Other chest pain Category: Medical Plan: Localized area of chest wall discomfort that is reproducible to palpation. [facility] ED evaluation with normal EKG and troponins. Patient informed this is noncardiac pain. Signs and symptoms of angina reviewed. (2) Orthostatic syncope: Code(s): I95.1 - Orthostatic hypotension Category: Medical Plan: History of orthostatic syncope, currently controlled without recent episodes. He is on midodrine 2.5 mg t.i.d. and reports maintaining good hydration. Last echo 05/02/2021 showing EF 55-60%, normal RV, no significant valve abnormalities. Reviewed the need to drink at least 64 oz daily. He dislikes the taste of salt and does not add it to his food. Informed him that liberal use of salt would help to keep his blood pressure more elevated. He continues to take metoprolol at night. No med changes made. (3) HTN (hypertension): Code(s): I10 - Essential (primary) hypertension Category: Medical Plan: Blood pressure goal less than 130/80. Normal at this time. No med changes made. (4) CAD (coronary artery disease): Code(s): I25.10 - Atherosclerotic heart disease of [place] coronary artery without angina pectoris Category: Medical Plan: History of CAD with remote LAD stent. No reports of anginal sounding symptoms. Signs and symptoms of angina reviewed with him. Continue aspirin indefinitely. Continue Zetia, metoprolol. Cardiology follow-up 6 months, sooner if needed. (5) HLD (hyperlipidemia): Code(s): E78.5 - Hyperlipidemia, unspecified Category: Medical Plan: Hatch LDL goal less than 70. He is not on statin for unclear reason but is on Zetia. Labs done 05/22/2024 showed LDL 20. Can continue current treatment (6) Hospital discharge follow-up: Code(s): Z09 - Encounter for follow-up examination after completed treatment for conditions other than malignant neoplasm Category: Medical Plan: [facility] ED notes from 07/22/2025 and 07/27/2025 reviewed. Plan Time spent on chart review, documentation, interview and assessment Coding Level of Care Code Est Pt Level 4 (27001) Complex EM visit Add On G2211 Diagnoses Discomfort of chest wall R07.89 Orthostatic syncope I95.1 HTN (hypertension) I10 CAD (coronary artery disease) I25.10 HLD (hyperlipidemia) E78.5 Hospital discharge follow-up Z09 Time Spent (min) 28
[2025-08-13 08:48] VITALS: BP 114/62; PULSE 89; BMI 24.3
--- OUTSIDE RECORDS SUMMARY | 2025-08-13 09:13 | XMS_ITS | Clinical Summary ---
Author Organization [facility] Address [address] [place] [phone] Phone Care Team Providers Care Show Host Name Role Phone Pcp, Unknown Primary Care [...] the skin nightly at bedtime. Active omega 6-hgf-zfz-fish oil 1,000 mg (120 mg-180 mg) Cap [...] of 2) 12/29/2003 COVID-19 VACCINE ( - 2024-2 6 season) 2025 RSV VACCINE (1 - 1-dose [...] Medical Devices [place] [address] MEDICARE PART A & B Care Teams Show Host Relationship Specialty Start Date End Date Pcp, Unknown PCP - General 11/28/21 Additional Source Comments The information contained in this document represents components of the legal health record. It is not the complete legal health record.[facility]
== END 2025-08-13 09:19 | disposition home or self-care (01) ==
LOC: HO.HCS 08:43
PROVIDERS: PCP Family Medicine; Visit Provider Nurse Practitioner Family
DX: R07.89 Other chest pain (principal); I95.1 Orthostatic hypotension; I10 Essential (primary) hypertension; I25.10 Atherosclerotic heart disease of native coronary artery without angina pectoris; E78.5 Hyperlipidemia, unspecified; Z09 Encounter for follow-up examination after completed treatment for conditions other than malignant neoplasm
CPT/HCPCS: 99214; G2211

== ENCOUNTER → 2025-08-13 08:43 | Outpatient (BNVA) | payer OTHER, SELFPAY | PROVIDERS: PCP Family Medicine; Visit Provider Nurse Practitioner Family | DX: I95.1 Orthostatic hypotension (principal); R07.89 Other chest pain; I10 Essential (primary) hypertension; I25.10 Atherosclerotic heart disease of native coronary artery without angina pectoris; E78.5 Hyperlipidemia, unspecified; Z09 Encounter for follow-up examination after completed treatment for conditions other than malignant neoplasm | CPT/HCPCS: 99212 ==